=== PATIENT | male | born 1950 | race Caucasian/White ===

== ENCOUNTER 2020-10-10 16:25 | Outpatient (CLI) | payer MEDICARE, OTHER, SELFPAY ==
--- NOTE | ~2020-10-10 | CT_ITS ---
EXAMINATION: CT diagnostic chest w con DATE: 10/10/2020 17:07 INDICATION: Chest pain and shortness of breath TECHNIQUE: Computed tomography (CT) of the chest was performed with 75 cc Omnipaque 350 intravenous c ontrast. The dose-length product was 233.33 mGy-cm. Automated exposure control and iterative reconstr uction technique were employed. COMPARISON: VQ scan and chest x-ray dated 05/19/2019 FINDINGS: No thoracic lymphadenopathy. There is gynecomastia. Heart size normal. No significant pleur al or pericardial effusion. No evidence for aortic aneurysm or dissection. No endobronchial lesions. No focal airspace consolidation. No pulmonary nodules or masses. There is dependent atelectasis. Ther e is a low-density lesion exophytic from the left kidney posteriorly, most likely benign cyst. Otherw ise, the upper abdomen is unremarkable. No acute osseous abnormality. Mild dextrocurvature of the tho racic spine. IMPRESSION: 1. No acute cardiopulmonary disease. Reviewed, dictated and finalized at location A. FITS ASSISTANT
[2020-10-10 16:58] LABS: Estimated Glomerular Filt Rate 55
== END 2020-10-10 16:26 | disposition home or self-care (01) ==
LOC: ANHIMG 16:27
PROVIDERS: PCP Nurse Practitioner Family; Visit Provider Internal Medicine Cardiovascular Disease
DX: R06.02 Shortness of breath (principal); R07.2 Precordial pain
CPT/HCPCS: 71260; Q9967

== ENCOUNTER 2020-11-08 09:01 | Outpatient (CLI) | payer MEDICARE, OTHER, SELFPAY ==
--- NOTE | ~2020-11-08 | CT_ITS ---
EXAMINATION: CT abdomen wo/w con EXAM DATE: 11/08/2020 09:38 INDICATION: Renal mass. TECHNIQUE: Spiral CT of the abdomen was performed without and then with intravenous injection of 100 mL Omnipaque 350. Axial, coronal and sagittal images were reviewed. The dose-length product (DLP) for this examination was 773.00 mGy-cm. The exposure was tailored according to patient size (auto mA exposure control), and iterative reconstruction (ASIR) was used as additional dose reduction techniq ue. Comparison is made to prior examination from 05/25/2019. FINDINGS: No nephrolithiasis on the precontrast study. Resolution of previously seen hydronephrosis. There are several left renal lesions again identified, largest partially exophytic along the posterom edial midpole at 3.5 cm, mild interval increase in size but no evidence of complexity. Appearance is consistent with a simple cyst. A couple of other hemorrhagic cysts measuring up to 1 cm in size. Ther e are no suspicious renal lesions. The liver, spleen, adrenal glands and pancreas are unremarkable. Gallbladder not identified, patient likely has had cholecystectomy. There is no retroperitoneal lymphadenopathy. There is mild scatt ered arteriosclerotic disease. The stomach and small bowel are unremarkable. There is moderate amount of colonic stool. No free i ntraperitoneal gas. The heart is normal in size. There are no pericardial or pleural effusions. T he lung bases are unremarkable. The bones are unremarkable. IMPRESSION: 1. Left renal cysts. Reviewed, dictated and finalized at location A. PUMPER IMPRESSION: 1. Left renal cysts.
[2020-11-08 09:26] LABS: Estimated Glomerular Filt Rate 60
== END 2020-11-08 09:02 | disposition home or self-care (01) ==
PROVIDERS: PCP Nurse Practitioner Family; Visit Provider Nurse Practitioner Family
DX: N28.89 Other specified disorders of kidney and ureter (principal); N28.1 Cyst of kidney, acquired
CPT/HCPCS: 74170; Q9967

== ENCOUNTER → 2020-12-30 01:12 | Outpatient (CLI) | payer MEDICARE, OTHER, SELFPAY ==
[2020-12-30 20:54] LABS: SARS-CoV-2 RNA PCR Negative
== END ==
PROVIDERS: PCP Nurse Practitioner Family; Visit Provider Internal Medicine Gastroenterology
DX: Z01.812 Encounter for preprocedural laboratory examination (principal); Z20.822 Contact with and (suspected) exposure to COVID-19
CPT/HCPCS: C9803; U0003; U0005

== ENCOUNTER 2021-01-02 01:22 | Day surgery (SDC) | payer MEDICARE, OTHER, SELFPAY ==
[2021-01-02 10:29] VITALS: BMI 25.1
[2021-01-02 10:40] VITALS: BP 109/58; PULSE 63; RESP 12; TEMP 36.2; O2SAT 100; BMI 25.1
--- NOTE | 2021-01-02 10:54 | PM.HPGS ---
History of Present Illness History of Present Illness Consent: Risks, benefits, and alternatives have been discussed and questions answered. Patient agrees to proceed with procedure. Chief complaint: positive cologuard Narrative: Bon Rose is a 70 year old male referred for colon cancer screening. He was found have a positive: Guard tests Review of Systems Review of Systems: All systems reviewed & are unremarkable except as noted in HPI and below PMFSH Past Medical History Medical History Anxiety Bilateral knee pain Degenerative joint disease of knee Depression Diarrhea Heart attack Seasonal allergies Stomach pain Urinary hesitancy Surgical History Surgical History History of appendectomy History of heart surgery Family History Family History Father Family history of gallbladder disease Family history of kidney disease Acute myocardial infarction Sibling Malignant neoplasm of prostate, Onset Age: 52 Family history of malignant neoplasm of breast in first degree relative Acute myocardial infarction Mother Family history of malignant neoplasm of breast in first degree relative, Onset Age: 78 Patient's mother is Other Heart disease Social History Social History Smoking status: Never smoker Alcohol intake: current Drinks per week: 14 Alcohol use details: two drinks a day Substance use: never Living arrangements: with family Gender identity (if verbalized by the patient): Male Spiritual care concerns: No Agree to blood products: Yes Meds Home Medications and Allergies Home Medications Medication Instructions Recorded Confirmed Type acetaminophen 325 mg capsule 325 mg PO Q6H PRN 07/17/20 01/02/21 History alprazolam 0.25 mg tablet 0.25 mg PO BID 07/17/20 01/02/21 History aspirin 81 mg tablet,delayed 81 mg PO DAILY 07/17/20 01/02/21 History release atorvastatin 40 mg tablet 40 mg PO DAILY 07/17/20 01/02/21 History buspirone 10 mg tablet 10 mg PO BID 07/17/20 01/02/21 History escitalopram oxalate 10 mg tablet 10 mg PO DAILY 07/17/20 01/02/21 History pantoprazole 40 mg tablet,delayed 40 mg PO QAM 07/17/20 01/02/21 History release tadalafil 5 mg tablet 5 mg PO DAILY 07/17/20 01/02/21 History ticagrelor 60 mg tablet 60 mg PO Q12H 07/17/20 01/02/21 History ascorbate calcium (vitamin C) 500 500 mg PO DAILY 07/18/20 01/02/21 History mg tablet zinc acetate 25 mg (zinc) capsule 25 mg PO DAILY 07/18/20 01/02/21 History zolpidem 10 mg tablet 10 mg PO HS 07/18/20 01/02/21 History cholestyramine (with sugar) 4 gram 4 g PO BID #60 ea 12/08/20 01/02/21 Rx powder for susp in a packet lisinopril 10 mg tablet 10 mg PO DAILY 12/08/20 01/02/21 History Allergies Allergy/AdvReac Type Severity Reaction Status Date / Time Sulfa (Sulfonamide Allergy Severe RASH Verified 01/02/21 10:26 Antibiotics) sulfanilamide Allergy Unknown Unknown Verified 01/02/21 10:26 Vital Signs Vital Signs - 24 hr 01/02/21 10:40 Temperature 36.2 C L Pulse Rate 63 Respiratory Rate 12 Blood Pressure 109/58 L Pulse Oximetry 100 Exam Resp: Auscultation: clear to auscultation bilaterally Cardio: Rate: regular rate Rhythm: regular rhythm GI: GI Palp: Yes Soft to palpation and No Tenderness to palpation present (GI) Assessment and Plan Assessment and plan (1) Positive colorectal cancer screening using Cologuard test: Code(s): R19.5 - Other fecal abnormalities Status: Acute Assessment and Plan: Colonoscopy with possible biopsy or polypectomy or cautery or injection of substances.
[2021-01-02] MEDS: LACTATED RINGERS 1,000 ML 150 ML IV CONT (10:55)
--- NOTE | 2021-01-02 11:02 | WPDANESEPPF ---
Anes - Initial Pre Proc Eval Procedure: Operation Date: 01/02/21 11:00 Proposed Procedures p Colonoscopy - Abilio Martino MD Date/Time: 01/02/21 11:02 Surgeon: Abilio Martino MD Pre Op Diagnosis: positive cologuard Patient Data Age: 70 Gender: M Height: 6 ft 3 in Weight: 91.2 kg Last Vital Signs Temp 97.1 F L 01/02/21 10:40 Pulse 63 01/02/21 10:40 Resp 12 01/02/21 10:40 BP 109/58 L 01/02/21 10:40 Pulse Ox 100 01/02/21 10:40 Allergies Allergy/AdvReac Type Severity Reaction Status Date / Time Sulfa (Sulfonamide Allergy Severe RASH Verified 01/02/21 10:26 Antibiotics) sulfanilamide Allergy Unknown Unknown Verified 01/02/21 10:26 Home Medications Medication Instructions Recorded Confirmed Type acetaminophen 325 mg capsule 325 mg PO Q6H PRN 07/17/20 01/02/21 History alprazolam 0.25 mg tablet 0.25 mg PO BID 07/17/20 01/02/21 History aspirin 81 mg tablet,delayed 81 mg PO DAILY 07/17/20 01/02/21 History release atorvastatin 40 mg tablet 40 mg PO DAILY 07/17/20 01/02/21 History buspirone 10 mg tablet 10 mg PO BID 07/17/20 01/02/21 History escitalopram oxalate 10 mg tablet 10 mg PO DAILY 07/17/20 01/02/21 History pantoprazole 40 mg tablet,delayed 40 mg PO QAM 07/17/20 01/02/21 History release tadalafil 5 mg tablet 5 mg PO DAILY 07/17/20 01/02/21 History ticagrelor 60 mg tablet 60 mg PO Q12H 07/17/20 01/02/21 History ascorbate calcium (vitamin C) 500 500 mg PO DAILY 07/18/20 01/02/21 History mg tablet zinc acetate 25 mg (zinc) capsule 25 mg PO DAILY 07/18/20 01/02/21 History zolpidem 10 mg tablet 10 mg PO HS 07/18/20 01/02/21 History cholestyramine (with sugar) 4 gram 4 g PO BID #60 ea 12/08/20 01/02/21 Rx powder for susp in a packet lisinopril 10 mg tablet 10 mg PO DAILY 12/08/20 01/02/21 History Patient hx anesthesia problems: none Family hx anesthesia problems: none PMFSH Past Medical History Medical History Anxiety Bilateral knee pain Degenerative joint disease of knee Depression Diarrhea Heart attack Seasonal allergies Stomach pain Urinary hesitancy Surgical History Surgical History History of appendectomy History of heart surgery Family History Family History Father Family history of gallbladder disease Family history of kidney disease Acute myocardial infarction Sibling Malignant neoplasm of prostate, Onset Age: 52 Family history of malignant neoplasm of breast in first degree relative Acute myocardial infarction Mother Family history of malignant neoplasm of breast in first degree relative, Onset Age: 78 Patient's mother is Other Heart disease Social History Social History Smoking status: Never smoker Alcohol intake: current Drinks per week: 14 Alcohol use details: two drinks a day Substance use: never Living arrangements: with family Gender identity (if verbalized by the patient): Male Spiritual care concerns: No Agree to blood products: Yes Anes - Eval Final PreProcedure Day of Procedure 01/02/21 11:02 Patient weight: normal Heart: regular rate and rhythm Lungs: clear to auscultation Airway: Mallampati scale class II Neurological: alert and oriented Last oral intake: >/= 8 hours ASA classification: III Emergent: no Anesthetic plan: proceed Anesthesia type and monitoring: general GIVS and standard monitoring Informed Consent: The patient's anesthetic plan and its attendant risks and benefits were discussed with the patient/family/POA. Questions were solicited and answers provided to the satisfaction of the patient/family/POA.
--- NOTE | 2021-01-02 11:37 | SUR.OPER ---
Addendum entered by Ashley Portillo RN 01/02/21 11:40: CLIP X2 Original Note: RESOLUTION CLIP TO TRANSVERSE COLON POLYP LOT [id number] EXP
[2021-01-02 11:45] VITALS: BP 96/59; PULSE 69; RESP 17; O2SAT 99
[2021-01-02 11:55] VITALS: BP 101/64; PULSE 63; RESP 17; O2SAT 99
[2021-01-02 12:05] VITALS: BP 111/60; PULSE 64; RESP 18; O2SAT 99
== END 2021-01-02 12:15 | disposition home or self-care (01) ==
PROVIDERS: PCP Nurse Practitioner Family; Visit Provider Internal Medicine Gastroenterology
PROC: 0DJD8ZZ Inspection of Lower Intestinal Tract, Via Natural or Artificial Opening Endoscopic (ICD-10-PCS; CPT 45378; principal; 2021-01-02 11:00)
DX: R19.5 Other fecal abnormalities (principal); D12.3 Benign neoplasm of transverse colon; I25.2 Old myocardial infarction; J30.2 Other seasonal allergic rhinitis; M17.10 Unilateral primary osteoarthritis, unspecified knee; R39.11 Hesitancy of micturition; F41.9 Anxiety disorder, unspecified; F32.9 Major depressive disorder, single episode, unspecified; Z90.49 Acquired absence of other specified parts of digestive tract
CPT/HCPCS: 45385; 88305; J2704; J7120

== ENCOUNTER 2023-09-12 16:27 | Emergency (ER) | payer MEDICARE, OTHER, SELFPAY ==
--- NOTE | 2023-09-12 17:09 | PC.NURSE ---
pt up to desk stating he is leaving and is going to try to go somewhere else
== END 2023-09-12 17:20 | disposition left against medical advice (07) ==
PROVIDERS: PCP Family Medicine
DX: Z53.21 Procedure and treatment not carried out due to patient leaving prior to being seen by health care provider (principal)
CPT/HCPCS: 99199

== ENCOUNTER 2024-06-11 09:28 | Outpatient (CLI) | payer MEDICARE, OTHER, SELFPAY ==
--- NOTE | ~2024-06-11 | XR_ITS ---
Clinical Indication: Shortness of breath PA and lateral views of the chest: Comparison: 05/19/2019 Findings: Possible 14 mm subtle right basilar pulmonary nodule. Left lung clear.. Cardiomediastinal silhouette is within normal limits. Bones and soft tissues are unremarkable. Impression: Possible 14 mm right basilar pulmonary nodule. Chest CT recommended for further evaluation. Reviewed, dictated and finalized at [facility]. Impression: Possible 14 mm right basilar pulmonary nodule. Chest CT recommended for further evaluation.
== END 2024-06-11 09:29 | disposition home or self-care (01) ==
PROVIDERS: PCP Family Medicine; Visit Provider Nurse Practitioner Family
DX: R06.02 Shortness of breath (principal)
CPT/HCPCS: 71046

== ENCOUNTER 2024-07-14 12:30 | Outpatient (RCR) | payer MEDICARE, OTHER, SELFPAY ==
--- NOTE | 2024-06-10 09:58 | OPREHPOC ---
Outpatient Therapy Plan of Care This is a Multidisciplinary Plan of Care that may contain components documented by all disciplines (PT, OT, and ST.) PT Problem 1 PT Problem #1 Knowledge Deficit PT Goal 1 Goal / Goal Update *indep with HEP * correct posture and body mechanics demonstrated with exercises Target Visit 8 PT Problem 2 PT Problem #2 Pain PT Goal 1 Goal / Goal Update 1* self assessment Oswestry rating of 22% limitation in activity level 2* pain rating of 5/10 at worst 3* pt not report R groin pain Target Visit 8 PT Problem 3 PT Problem #3 Impaired Flexibility PT Goal 1 Goal / Goal Update improve flexibility over trunk and hips, to decrease strain/lime puller lumbar-sacral spine hamstring length with supine SLR 1* R 50' 2* L 50' piriformis length with supine hip and knee flexion> 90' 3* R cross midline of body 4* L cross midline of body anterior hip/quad length with prone knee flexion 5* R 110' 6* L 110' Target Visit 8
--- NOTE | 2024-06-10 09:58 | PTOPEVAL1 ---
Assessment and note entered by Maggie Pineda PT Evaluation Information Assessment Status Evaluation ICD-10 Condition Codes (PT) Pain in low back M54.50 Onset Apr 2024 Subjective Information had PT at another facility, the more he exercised, the more pain he had----sitting, lying down and standing exercises; xrays of lumbar: degenerative changes in L 4-5 and L 5-S1 Activity: is able to do all home and self care activities; walking is decreased--- was walking 4 miles/ 55 minutes at [facility], and no longer doing it; GOAL: get back to regular activity and walking again; not have thigh pain; Reported Pain Level Pain Score Self Report Additional Pain Score Comments pain range in the past week 0-8/10; sore in low back and R upper thigh/groin area; increase pain: when stand up and take first few steps decrease pain: over the counter meds; had prednisone and it did not help; sleep is not disrupted due to back pain; not use heat/ice- instruct on PRN use; Assessment PT Clinical Summary Jarvis has the diagnosis of low back pain. Also has pain in R inner thigh/groin area. He is no longer doing his walking for fitness due to pain. Self assessment Oswestry rating of 32% limitation in activity level. His medical history includes cancer of breast and bone, is currently on oral meds to control. With the evaluation: he has good hip and trunk strength; good walking speed and distance with 2 minute walking test; stands with flat lumbar spine; decreased flexibility of lumbar spine, R and L: hamstring, quads, anterior hip musculature. Skilled PT services are indicated for modalities to decrease pain; therapeutic exercises to increase hip and trunk flexibility; education for home exercises, posture and pain management. Plan of Care Interventions Hot Pack/Cold Pack,Manual Therapy,Patient/ Education,Therapeutic Activities, Therapeutic Exercise,Other Other Interventions taping PT Services Indicated Yes Treatment Frequency and 1-2x/wk for 8 visits Duration These treatments will address the objective and functional deficits as defined above. The patient will be advanced safely and appropriately in order for the patient to progress towards his/her prior level of function. Additional exercises will be introduced and as well as a comprehensive home exercise program upon discharge, if needed, ?to ensure carryover of functional gains achieved in the clinic. This treatment plan has been reviewed and agreement upon by the patient.
--- NOTE | 2024-07-09 13:06 | PCPTNOTE ---
Patient no called/no showed his appointment today however cancelled his appointment on 07/07 due to having COVID. Patient reported he forgot to call but still wasn't feeling well enough to come in. Patient was reminded about his re-eval on 07/14 at 12:30 and patient confirmed.
--- NOTE | 2024-07-14 13:14 | PTOPDC ---
Assessment and note entered by Maggie Pineda, PT Discharge Report Assessment Status Discharge ICD-10 Condition Codes (PT) Pain in low back M54.50 Onset Apr 2024 Subjective Information have been ill with COVID and better now; have been doing the stretches at home; want to get back to going to the [facility] for exercises and walking; Reported Pain Level Pain Score 0,0: Self Report Additional Pain Score Comments sore in groin, not painful pain range in the low back 0-4/10; increase pain: with sleeping wrong decrease pain: change positions, exercises/ stretching;ibuprofen PRN is careful to watch his position and not sit too long at a time; Assessment PT Clinical Summary Jarvis has received 6 PT sessions. He called/ canceled 1 and did not show for 1 appointment. Compared to the initial evaluation: pain from 0-8/10 to 0-4/10; no longer has pain into R groin, only in low back; self assessment Oswestry from 32 to 4% limitation in activity level; increase flexibility of R and L hamstrings, piriformis and anterior hip-quad muscle groups; increase strength of trunk and hips; Education completed for HEP, posture, body mechanics and pain management with positional changes and monitor activity level. The goals were achieved. Discharge PT. He is to continue with his HEP and monitor back posture and body mechanics. Plan of Care PT Services Indicated No
== END 2024-07-14 15:48 | disposition home or self-care (01) ==
LOC: ANHPT 12:30
PROVIDERS: PCP Family Medicine; Visit Provider Orthopaedic Surgery
DX: M48.061 Spinal stenosis, lumbar region without neurogenic claudication (principal); M54.50 Low back pain, unspecified
CPT/HCPCS: 97110; 97161; 97530

== ENCOUNTER 2024-08-24 16:39 | Emergency (ER) | payer MEDICARE, OTHER, SELFPAY ==
[2024-08-24 17:21] VITALS: BP 138/73; PULSE 108; RESP 16; TEMP 36.4; O2SAT 96
--- NOTE | 2024-08-24 17:29 | ED.URI ---
HPI - URI/Sore Throat General Chief Complaint: Upper Respiratory Infection Stated Complaint: flu like symptoms/ Fever Time Seen by Provider: 08/24/24 17:30 Source: patient and RN notes reviewed Mode of arrival: ambulatory Limitations: no limitations History of Present Illness HPI Narrative: 74-year-old male with hx CAD and metastatic breast cancer presented for complaint of headache, cough, body aches, sinus pressure/congestion, fever/chills. Onset yesterday. Had an episode of nausea and vomiting today, which made him feel better. Also reports decreased appetite and abdominal discomfort around umbilicus. Took advil for symptoms. Contacted his oncologist who advised covid/flu testing. MD elicited complaint: cough Related Data Home Medications ?Medication ?Instructions ?Recorded ?Confirmed ?Last Taken ?Type aspirin 81 mg tablet,delayed 81 mg PO DAILY 07/17/20 07/06/24 Unknown History release atorvastatin 40 mg tablet 40 mg PO DAILY 07/17/20 07/06/24 Unknown History ticagrelor 60 mg tablet 60 mg PO Q12H 07/17/20 06/11/24 Unknown History ascorbate calcium (vitamin C) 500 500 mg PO DAILY 07/18/20 07/06/24 Unknown History mg tablet zinc acetate 25 mg (zinc) capsule 25 mg PO DAILY 07/18/20 07/06/24 Unknown History ezetimibe 10 mg tablet mg PO 05/05/24 07/06/24 Unknown History finasteride 5 mg tablet mg PO 05/05/24 07/06/24 Unknown History gabapentin 300 mg capsule mg PO 05/05/24 07/06/24 Unknown History losartan 25 mg tablet mg PO 05/05/24 07/06/24 Unknown History letrozole 2.5 mg tablet mg PO 06/11/24 07/06/24 Unknown History metoprolol tartrate 25 mg tablet 25 mg PO DAILY 06/11/24 07/06/24 Unknown History temazepam 30 mg capsule mg PO 06/11/24 07/06/24 Unknown History trazodone 150 mg tablet mg PO 06/11/24 07/06/24 Unknown History cholecalciferol (vitamin D3) 50 50 mcg PO DAILY 07/06/24 07/06/24 Unknown History mcg (2,000 unit) capsule Allergies Allergy/AdvReac Type Severity Reaction Status Date / Time Sulfa (Sulfonamide Allergy Mild RASH Verified 08/24/24 17:21 Antibiotics) sertraline AdvReac Intermediate Diarrhea Verified 08/24/24 17:21 Review of Systems Review of Systems: CONSTITUTIONAL: Endorses malaise, chills, sweats, fever EYES: Denies visual changes, redness, or discharge ENT: Reports rhinorrhea, congestion, denies otalgia, sore throat CARDIOVASCULAR: Denies chest pain, palpitations, edema RESPIRATORY: Reports cough, post nasal drainage. Denies dyspnea GASTROINTESTINAL: reports nausea, vomiting, abdominal pain MUSCULOSKELETAL: Endorses myalgia NEUROLOGIC: reports headache PMFSH Past Medical History Medical History Anxiety Bilateral knee pain Cancer Degenerative joint disease of knee Depression Diarrhea Heart attack Seasonal allergies Stomach pain Urinary hesitancy Surgical History Surgical History H/O heart artery stent H/O vasectomy History of appendectomy History of cholecystectomy History of heart surgery Family History Family History Father Family history of gallbladder disease Family history of kidney disease Acute myocardial infarction Sibling Malignant neoplasm of prostate, Onset Age: 52 Family history of malignant neoplasm of breast in first degree relative Acute myocardial infarction Mother Family history of malignant neoplasm of breast in first degree relative, Onset Age: 78 Patient's mother is Other Heart disease Social History Social History (Updated 07/06/24 @ 12:43 by Gardenia Peng CMA) Smoking status: Never smoker Second hand tobacco smoke exposure: Yes Alcohol intake: current Drinks per week: 14 Alcohol use details: two drinks a day Substance use: never Substance use type: does not use Do You Feel Safe in your Home?: Yes Lack of Transportation: No Lack of Food: Never True Current Housing: I Have Housing Concerned About Future Housing: No Difficulty Paying Gas/Electric Bills: No Difficulty Paying for Meds: No Currently Unemployed: No Education: Associate Degree Difficulty w/ Childcare or Family Care: No Living arrangements: with family Occupation/Education: retired Additional occupation/education comments: [employer] Gender identity (if verbalized by the patient): Male Spiritual care concerns: No Agree to blood products: Yes Exam Narrative: GENERAL: mildly Ill-appearing, nontoxic no acute distress. EYES: PERRLA, conjunctivae clear ENT: Mucous membranes moist. TMs pearly blankenship with dull light reflex bilaterally; no tragal tenderness. no drooling, no hoarseness, no trismus, uvula midline. No tripod positioning, muffled voice, soft palate or pharyngeal wall bulging NECK: Supple. No lymphadenopathy CHEST: Clear to auscultation, breath sounds equal. No wheezing, rhonchi, rales, or stridor. No respiratory distress, speaks in full sentences. HEART: Regular rate and rhythm. No murmur heard. SKIN: Warm, dry NEURO: Alert and oriented x3. PSYCH: Normal mood and affect Course Course Emergency Course: Patient is aware of diagnosis, understands and agrees to treatment plan. Anticipatory guidance given. Patient agrees to follow-up as directed and is aware of reasons to seek care at the emergency department. Portions of this record may have been created with voice recognition software Level of Care: Express Care Visit Vital Signs Vital signs: Vital Signs Temperature 97.5 F L 08/24/24 17:21 Pulse Rate 108 H 08/24/24 17:21 Respiratory Rate 16 08/24/24 17:21 Blood Pressure 138/73 08/24/24 17:21 Pulse Oximetry 96 08/24/24 17:21 Oxygen Delivery Room Air 08/24/24 17:21 Temperature 97.5 F L 08/24/24 17:21 Pulse Rate 108 H 08/24/24 17:21 Respiratory Rate 16 08/24/24 17:21 Blood Pressure 138/73 08/24/24 17:21 Pulse Oximetry 96 08/24/24 17:21 Oxygen Delivery Room Air 08/24/24 17:21 reviewed MDM - URI/Sore Throat MDM Narrative Medical decision making narrative: POS covid. Discussed physical exam findings. Advised supportive measures and signs/symptoms to go to the ER. Pt is appropriate for outpt treatment and f/u. Differential Diagnosis Differential diagnosis: Likely upper respiratory infection, sinusitis and viral infection Discharge Plan Discharge Clinical Impression: COVID-19 Patient Disposition: Home, Self-Care Condition: Stable Instructions: COVID-19 (Coronavirus Disease 2019) (ED) Additional Instructions: Your rapid COVID test was positive today. The following updated recommendations have been made by the CDC and local Health Departments, regarding COVID-19: - When people get sick with a respiratory virus, they stay home and away from others. - Return to normal activities when, for at least 24 hours, symptoms are improving overall, and if a fever was present, it has been gone without use of a fever-reducing medication. - Once people resume normal activities, they are encouraged to take additional prevention strategies for the next 5 days to curb disease spread, such as taking more steps for negative cleaner air, enhancing hygiene practices, wearing a well-fitting mask, keeping a distance from others, and/or getting tested for respiratory viruses. - Enhanced precautions are especially important to protect those most at risk for severe illness, including those over 65 and people with weakened immune systems. Rest, stay hydrated. Tylenol every 8 hours as needed Flonase/nasal spray, Zyrtec, cough syrup cold/flu medications for symptoms as needed Follow up with your primary care provider, call to schedule an appointment. Go to the ER for worsening symptoms or concerns. Patient Language: Colombian Prescriptions: No Action cholecalciferol (vitamin D3) 50 mcg (2,000 unit) capsule 50 mcg PO DAILY temazepam 30 mg capsule PO trazodone 150 mg tablet PO letrozole 2.5 mg tablet PO aspirin 81 mg tablet,delayed release (DR/EC) 81 mg PO DAILY atorvastatin 40 mg tablet 40 mg PO DAILY ticagrelor 60 mg tablet 60 mg PO Q12H ascorbate calcium (vitamin C) 500 mg tablet 500 mg PO DAILY zinc acetate 25 mg (zinc) capsule 25 mg PO DAILY Rx Instructions: swallow whole; do not chew/break/dissolve/open ezetimibe 10 mg tablet PO finasteride 5 mg tablet PO losartan 25 mg tablet PO gabapentin 300 mg capsule PO terbinafine HCl [Jock Itch (terbinafine)] 1 % cream 1 applic topical BID Qty: 30 1RF metoprolol tartrate 25 mg tablet 25 mg PO DAILY terbinafine HCl 250 mg tablet 250 mg PO DAILY Qty: 10 0RF triamcinolone acetonide 0.1 % cream 1 applic topical BID Qty: 30 0RF Follow-up/Referrals: Bang Hester MD [Primary Care Provider] - Time of Disposition: 17:38
[2024-08-24 17:48] LABS: EDCOVIDSCREEN Positive (Negative); EDINFLUASCREEN Negative (Negative); EDINFLUBSCREEN Negative (Negative)
== END 2024-08-24 17:40 | disposition home or self-care (01) ==
PROVIDERS: Emergency Provider Nurse Practitioner Family; PCP Family Medicine
DX: U07.1 COVID-19 (principal); Z85.3 Personal history of malignant neoplasm of breast
CPT/HCPCS: 87426; 87804; 99212; G0463

== ENCOUNTER 2025-01-06 13:00 | Outpatient (RCR) | payer MEDICARE, OTHER, SELFPAY ==
--- NOTE | 2024-12-09 17:24 | OPREHPOC ---
Outpatient Therapy Plan of Care This is a Multidisciplinary Plan of Care that may contain components documented by all disciplines (PT, OT, and ST.) PT Problem 1 PT Problem #1 Knowledge Deficit PT Goal 1 Goal / Goal Update [place] with HEP Target Visit 4 PT Goal 2 Goal / Goal Update Report no pain greater than 2/10 for 2 consecutive weeks Target Visit 8 PT Problem 2 PT Problem #2 Impaired Range of Motion PT Goal 1 Goal / Goal Update 1. Improve nicholas hip abduction ROM to 40 degrees to improve gross hip mobility. 2. Demonstrate minimal restriction of nicholas piriformis 3. Demonstrate -20 degrees or better of nicholas hamstring restriction Target Visit 8 PT Problem 3 PT Problem #3 Impaired Gait PT Goal 1 Goal / Goal Update Demonstrate improved terminal stance bilaterally with full foot clearance
--- NOTE | 2024-12-09 17:24 | PTOPEVAL1 ---
Assessment and note entered by Eric Mcgovern, PT Evaluation Information Assessment Status Evaluation Diagnosis Right groin pain ICD-10 Condition Codes (PT) Pain in low back M54.50 Onset November 2023 Subjective Information Reports that he first started noticing pain about a year ago. He has been exercising to work on it. Added leg lifts which feel like they are strengthening the hip. He has had X-rays and they believe that it is radiating from the back to the groin. His orthopedic doctor was the one that originally took his x-rays. Overall feels that hips are tight and limiting function. Reported Pain Level Pain Score 0: Self Report Assessment PT Clinical Summary Patient presents with significant loss in functional hip ROM reflected in objective measures , stride, and mobility. Patient strength is significant for tasks, but could use lumbar stabilization coupled with hip disassociation to ensure oil heaterman functional recovery. Plan of Care Interventions Gait Training,Manual Therapy,Neuro Re-education, Therapeutic Activities,Therapeutic Exercise PT Services Indicated Yes Treatment Frequency and 2x/week for 8 visits Duration These treatments will address the objective and functional deficits as defined above. The patient will be advanced safely and appropriately in order for the patient to progress towards his/her prior level of function. Additional exercises will be introduced and as well as a comprehensive home exercise program upon discharge, if needed, ?to ensure carryover of functional gains achieved in the clinic. This treatment plan has been reviewed and agreement upon by the patient.
--- NOTE | 2025-01-06 13:45 | OPREHPOC ---
Outpatient Therapy Plan of Care This is a Multidisciplinary Plan of Care that may contain components documented by all disciplines (PT, OT, and ST.) PT Problem 1 PT Problem #1 Knowledge Deficit PT Goal 1 Goal / Goal Update [place] with HEP Target Visit 4 Progress Met PT Goal 2 Goal / Goal Update Report no pain greater than 2/10 for 2 consecutive weeks Target Visit 8 Progress Met PT Problem 2 PT Problem #2 Impaired Range of Motion PT Goal 1 Goal / Goal Update 1. Improve nicholas hip abduction ROM to 40 degrees to improve gross hip mobility. 2. Demonstrate minimal restriction of nicholas piriformis 3. Demonstrate -20 degrees or better of nicholas hamstring restriction Continues to show restriction in all listed categories but will address as part of HEP. Target Visit 8 Progress Partially Met PT Problem 3 PT Problem #3 Impaired Gait PT Goal 1 Goal / Goal Update Demonstrate improved terminal stance bilaterally with full foot clearance Progress Met
--- NOTE | 2025-01-06 13:45 | PTOPDC ---
Assessment and note entered by Eric Mcgovern, PT Evaluation Information Assessment Status Discharge Diagnosis Right groin pain ICD-10 Condition Codes (PT) Pain in low back M54.50 Onset November 2023 Subjective Information Reports that overall things are better. He is back to his regular routine once a day. He has been walking 3 miles a day. Does not have the pain today, but has had some days where it is still present. Feels he is doing well overall and requests discharge at this time from skilled therapy. Assessment PT Clinical Summary Patient met all functional goals at this time but still has notable objective goal deficits. Hew elected to pursue these independently with developed HEP. Will continue to address these deficits independently. Appropriate for discharge at this time. Plan of Care PT Services Indicated Yes
== END 2025-01-06 17:19 | disposition home or self-care (01) ==
LOC: ANHPT 13:00
PROVIDERS: PCP Family Medicine; Visit Provider Family Medicine
DX: R10.30 Lower abdominal pain, unspecified (principal); M54.50 Low back pain, unspecified
CPT/HCPCS: 97110; 97116; 97140; 97161; 97530

== ENCOUNTER 2025-04-18 14:00 | Outpatient (RCR) | payer MEDICARE, OTHER, SELFPAY ==
--- NOTE | 2025-03-09 11:09 | OPREHPOC ---
Outpatient Therapy Plan of Care This is a Multidisciplinary Plan of Care that may contain components documented by all disciplines (PT, OT, and ST.) PT Problem 1 PT Problem #1 Knowledge Deficit PT Goal 1 Goal / Goal Update Patient to demonstrate independence with HEP for improved self-reliance of symptom management. Target Visit 4 PT Problem 2 PT Problem #2 Pain PT Goal 1 Goal / Goal Update Patient to decrease subjective reports of Vicente shoulder pain to <4/10 upon waking for improved sleeping tolerance. Target Visit 4 PT Problem 3 PT Problem #3 Impaired Strength PT Goal 1 Goal / Goal Update Patient to demonstrate Vicente shoulder strength >=4+/ 5 for improved functional stability required for ADLs. Target Visit 8 PT Problem 4 PT Problem #4 Impaired Range of Motion PT Goal 1 Goal / Goal Update 1. Pt to demonstrate an increase of Vicente shoulder flexion AROM of 0-150 deg to improve the ability to reach overhead. 2. Pt to demonstrate an increase of Vicente shoulder abduction AROM of 0-120 deg to improve the ability to reach overhead laterally. 3. Pt to demonstrate an increase of Vicente shoulder IR functional reach to T12 to improve ability to perform personal hygiene tasks. Target Visit 8
--- NOTE | 2025-03-09 11:09 | PTOPEVAL1 ---
Assessment and note entered by Natasha Knowles, PT Evaluation Information Assessment Status Evaluation Diagnosis VICENTE shoulder pain L>R ICD-10 Condition Codes (PT) Pain in right shoulder M25.511,Pain in left shoulder M25.512 Onset approx. Sep 2024 Subjective Information Primary Complaint: Vicente shoulder Pain L>R Pain description: dull ache but sharp with movement and sleep History of current condition: Pt reports symptoms started on back in September. He tried a steroid pack with no change in his pain or function. At his most recent follow up he was instructed to try PT and if no change then he will need an MRI. He was also told to use Voltarin and an NSAID from the pharmacy for pain relief. Pt is unsure of which medication is being called in. He denies a specific PENG, he is currently under care for metastatic breast CA that has spread to his back. He reports it is stabilized but he is not in remission yet, initial diagnosis was July. Sxs made worse with: sleeping on his sides, wakes him up Sxs improved with: nothing CLOF: reduced sleep, difficulty washing his back, reaching into backseat of car PLOF: no limitations, pt is R handed Reported Pain Level Pain Score 0: Self Report Additional Pain Score Comments places hand over entire shoulder joint, difficulty pinpointing pain location Assessment PT Clinical Summary Pt is a 74 year old male who presents to physical therapy with a primary complaint of Vicente shoulder pain since September 2024. Pt demonstrates Vicente shoulder weakness, pain worse at night and with internal rotation, decreased mobility, abnormal posture, and decreased tissue extensibility that limit their ability to perform ADLs. Pt will benefit from skilled physical therapy to address the above listed deficits and return to PLOF. HEP instructed and written handout provided, EX tolerated well with no adverse effects to note post-session. Pt was educated on importance of adherence to HEP. Pt was also educated on anatomy, prognosis, home modalities, and PT POC. Plan of Care Interventions Hot Pack/Cold Pack,Manual Therapy,Neuro Re- education,Therapeutic Activities,Therapeutic Exercise PT Services Indicated Yes Treatment Frequency and 2x/wk for 8 sessions Duration These treatments will address the objective and functional deficits as defined above. The patient will be advanced safely and appropriately in order for the patient to progress towards his/her prior level of function. Additional exercises will be introduced and as well as a comprehensive home exercise program upon discharge, if needed, ?to ensure carryover of functional gains achieved in the clinic. This treatment plan has been reviewed and agreement upon by the patient.
--- NOTE | 2025-04-18 14:59 | OPREHPOC ---
Outpatient Therapy Plan of Care This is a Multidisciplinary Plan of Care that may contain components documented by all disciplines (PT, OT, and ST.) PT Problem 1 PT Problem #1 Knowledge Deficit PT Goal 1 Goal / Goal Update Patient to demonstrate independence with HEP for improved self-reliance of symptom management. Target Visit 4 Progress Met PT Problem 2 PT Problem #2 Pain PT Goal 1 Goal / Goal Update Patient to decrease subjective reports of Vicente shoulder pain to <4/10 upon waking for improved sleeping tolerance. Target Visit 4 Progress Met PT Problem 3 PT Problem #3 Impaired Strength PT Goal 1 Goal / Goal Update Patient to demonstrate Vicente shoulder strength >=4+/ 5 for improved functional stability required for ADLs. Target Visit 8 Progress Met PT Problem 4 PT Problem #4 Impaired Range of Motion PT Goal 1 Goal / Goal Update 1. Pt to demonstrate an increase of Vicente shoulder flexion AROM of 0-150 deg to improve the ability to reach overhead. 2. Pt to demonstrate an increase of Vicente shoulder abduction AROM of 0-120 deg to improve the ability to reach overhead laterally. 3. Pt to demonstrate an increase of Vicente shoulder IR functional reach to T12 to improve ability to perform personal hygiene tasks. Target Visit 8 Progress Met
--- NOTE | 2025-04-18 14:59 | PTOPDC ---
Assessment and note entered by Eric Mcgovern, PT Evaluation Information Assessment Status Discharge Diagnosis YOLIS shoulder pain L>R ICD-10 Condition Codes (PT) Pain in right shoulder M25.511,Pain in left shoulder M25.512 Onset approx. Sep 2024 Subjective Information Patient reports that overall he feels he is doing much better. Derrick [employer] and reach are improved. Less pain with overhead activity and ADLs. Reported Pain Level Pain Score 0: Self Report Assessment PT Clinical Summary Patient has met all goals for therapy at this time and is suitable for discharge to [facility] at this time . HE has demonstrated compliance and understanding with senior care goals and maintenance. Plan of Care PT Services Indicated Yes
== END 2025-04-18 17:03 | disposition home or self-care (01) ==
LOC: ANHPT 14:00
PROVIDERS: PCP Family Medicine; Visit Provider Orthopaedic Surgery
DX: M75.81 Other shoulder lesions, right shoulder (principal); M75.82 Other shoulder lesions, left shoulder
CPT/HCPCS: 97110; 97140; 97161; 97530

== ENCOUNTER 2025-05-13 12:29 | Outpatient (CLI) | payer MEDICARE, OTHER, SELFPAY ==
--- NOTE | ~2025-05-13 | MR_ITS ---
EXAMINATION: MR knee LT wo con DATE: 05/13/2025 13:00 INDICATION: Left knee pain TECHNIQUE: Magnetic resonance imaging (MRI) of the left knee was performed without intravenous contrast. Sequences included coronal PD-weighted FSE, coronal PD-weighted FS FSE, sagittal T2-weighted FSE, sagittal PD-weighted FS FSE and axial PD weighted fat saturated FSE. COMPARISON: None. FINDINGS: Medial compartment: Complex tear of the body and posterior horn of the medial meniscus. Articular cartilage is normal. Lateral compartment: Lateral meniscus is normal. Articular cartilage is normal. Patellofemoral compartment: Articular cartilage is normal. Ligaments and tendons: Anterior and posterior cruciate ligaments are normal. There is mild thickening with minimal increased signal of the proximal medial collateral ligament without surrounding edema consistent with mild scarring related to chronic sprain. The fibular collateral ligament complex is normal. The extensor mechanism is normal. The visualized medial and lateral hamstring tendons as well as the iliotibial band are normal. Fluid: Physiologic amount of fluid in the joint space. No loose osteochondral bodies identified. Osseous/other: Normal marrow signal. No fracture or pathologic marrow replacing process. There is edema of the superficial suprapatellar fat pad which can be seen with fat pad impingement syndrome. IMPRESSION: 1. Complex tear of the body and posterior horn of the medial meniscus. 2. Mild scarring consistent with chronic sprain of the proximal medial collateral ligament. 2. Edema in the superficial suprapatellar fat pad which can be seen with fat pad impingement syndrome. Reviewed, dictated and finalized at location A. IMPRESSION: 1. Complex tear of the body and posterior horn of the medial meniscus. 2. Mild scarring consistent with chronic sprain of the proximal medial collater al ligament. 2. Edema in the superficial suprapatellar fat pad which can be seen with fat pa d impingement syndrome.
== END 2025-05-13 12:30 | disposition home or self-care (01) ==
LOC: MICIMG 12:30
PROVIDERS: PCP Orthopaedic Surgery; Visit Provider Orthopaedic Surgery
DX: S83.232A Complex tear of medial meniscus, current injury, left knee, initial encounter (principal); X58.XXXA Exposure to other specified factors, initial encounter
CPT/HCPCS: 73721

== ENCOUNTER 2025-05-26 12:42 | Outpatient (CLI) | payer MEDICARE, OTHER, SELFPAY ==
--- NOTE | 2025-05-26 12:30 | ECG_ITS ---
Test Date: 2025-05-26 12:59:53 Measurements Intervals Rogers Rate: 87 P: 39 VT: 219 QRS: -37 QRSD: 78 T: 40 QT: 346 QTc: 418 Interpretive Statements SINUS RHYTHM WITH FIRST DEGREE AV BLOCK MARKED LEFT AXIS DEVIATION [QRS AXIS < -30] MODERATE VOLTAGE CRITERIA FOR LVH, CONSIDER NORMAL VARIANT [MEETS CRITERIA IN ONE OF: R(aVL), S(V1), R(V5), R(V5/V6)+S(V1)] POSSIBLE ANTEROSEPTAL MYOCARDIAL INFARCTION [30 ms Q WAVE IN V1-V4], OF INDETERMINATE AGE ABNORMAL ECG No previous ECG available for comparison Electronically Signed On 05-26-2025 17:55:42 CDT by Oziel Saldana M.D.
--- OUTSIDE RECORDS SUMMARY | 2025-05-26 12:50 | XMS_ITS | Encounter Summary ---
Author Organization [facility] Address [address] [place] [address] Phone Care Team Providers Care Mathematician Name Role Phone Lucero Flores DOOR AND ARRIVAL ATTENDANT Unavailable [phone] Lucero Flores DOOR AND ARRIVAL ATTENDANT Primary Care Provider + Layla Kirby MD Unavailable [phone] Angela Whitfield MD PhD Unavaila ble Fabio Sanchez DO Unavailable [phone] Rosalia Ibrahim MD Primary Care Provider + Yobani Escobar NP Primary Care Provider [phone] Bang Hester MD Primary Care Provider [phone] Marcia Dugan MD Unavailable [phone] Encounter Details Date Type Department Care Team (Late st Contact Info) Description 09/02/2018 Telephone [facility] ([facility]) - [facility] Medicine Urology [address] [facility] 11th [place] [address] [place] [address] Erlin Reyes Social History Tobacco Use Types Packs/Day Years Used Date Smoking Tobacco: Never Smokeless Tobacco: Never Alcohol Use Standard Drinks/Week Comments Yes 7 (1 standard drink = 0.6 oz pur e alcohol) Sex and Gender Information Value Date Recorded Sex Assigned at Not on file 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 Gender Identity Male 08/26/2023 5:32 PM OPTOMETRY PROFESSOR Sexual Orientation Straight 08/26/2023 5: 32 PM OPTOMETRY PROFESSOR documented as of this encounter Plan of Treatment Not on file documented as of this encounter Visit Diagnoses Not on filedocumented in this encounter Additional Health Concerns Infection Onset Date Last Indicated Resolved Time COVID: Suspected 04/13/2024 04/13/2024 04/13/2024 5:01 PM CDT COVID: Suspected 05/27/2024 05/27/2024 05/27/2024 5:39 PM CDT documented as of this encounter Care Teams Mathematician Relationship Specialty Start Date End Date Lucero Flores NP PCP - General Nurse Practitioner 04/27/18 11/05/23 Rosalia Ibrahim MD [address] [place] [address] PCP - General Family Medicine 11/06/23 03/31/24 Yobani Escobar NP [address] [place] [address] PCP - General Family Medicine 04/01/24 05/26/24 Bang Hester MD [address] [place] [address] PCP - General Family Practice 05/27/24 Lucero Flores NP Nurse Practitioner 05/23/17 11/12/23 Layla Kirby MD Radiation Oncologist Radiation Oncology 09/05/23 Angela Whitfield MD PhD [facility] [id number] [place] [address] Surgeon Surgical Oncology 09/05/23 Fabio Sanchez DO [address] [place] [address] Medical Oncologist/Speech Language Pathologist Hematology and Oncology 09/05/23 Marcia Dugan MD [address] [place] [address] Medical Oncologist/Speech Language Pathologist Medical Oncology 05/19/25 documented as of this encounter
--- OUTSIDE RECORDS SUMMARY | 2025-05-26 12:50 | XMS_ITS | Encounter Summary ---
Author Organization [facility] Address [address] [place] [address] Care Team Providers Care Spanish Tutor Name Role Phone Layla Kirby MD Unavailable [phone] Angela Whitfield MD PhD Unavaila ble Fabio Sanchez DO Unavailable [phone] Bang Hester MD Primary Care Provider [phone] Marcia Dugan MD Unavailable [phone] Encounter Details Date Type Department Care Team (Late st Contact Info) Description 10/11/2024 Orders Only [facility] [place] [facility] [address] [place] [address] Scanning, Provider Social History Tobacco Use Types Packs/Day Years Used Date Smoking Tobacco: Never Passive Smoke Exposure: Never Smokeless Tobacco: Never Alcohol Use Standard Drinks/Week Comments Yes 7 (1 standard drink = 0.6 oz pur e alcohol) AUDIT-C Answer Date Recorded Q1: How often do you have a drink containing alc ohol? Never 08/11/2024 Average Number of Drinks Not on file 024 Frequency of Binge Drinking Not on file 12/2023 Personal Safety Answer Date Recorded Have you ever been in or are you currently in a harmful physical or emotional relationship or is someone making you feel afraid or unsafe? 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 Gender Identity Male 08/26/2023 5:32 PM INDUSTRIAL GAS SERVICER SUPERVISOR Sexual Orientation Straight 08/26/2023 5: 32 PM INDUSTRIAL GAS SERVICER SUPERVISOR documented as of this encounter Plan of Treatment Not on file documented as of this encounter Procedures Procedure Name Priority Date/Time Associated Diagnosis Comments CARDIOLOGY DOCUMENT SCAN 10/11/2024 documented in this encounter Results * Cardiology Document Scan (10/11/2024) Anatomical Region Laterality Modality Other us Provider Scanning CV CARDIAC SERVICES PROCEDURES Final Result documented in this encounter Visit Diagnoses Not on filedocumented in this encounter Care Teams Spanish Tutor Relationship Specialty Start Date End Date Bang Hester MD [address] [address] PCP - General Family Practice 05/27/24 Layla Kirby MD Radiation Oncologist Radiation Oncology 09/05/23 Angela Whitfield MD PhD [address] [facility] [id number] [place] [address] Surgeon Surgical Oncology 09/05/23 Fabio Sanchez DO [address] [place] [address] Medical Oncologist/Welder Explosion Hematology and Oncology 09/05/23 Marcia Dugan MD [address] [place] [address] Medical Oncologist/Welder Explosion Medical Oncology 05/19/25 documented as of this encounter
--- OUTSIDE RECORDS SUMMARY | 2025-05-26 12:50 | XMS_ITS ---
Author Organization [facility] [address] Address [address] [place] [address] Care Team Providers Care Physical Therapy Coordinator Name Role Phone Layla Kirby MD Unavailable [phone] Angela Whitfield MD PhD Unavaila ble Fabio Sanchez DO Unavailable [phone] Bang Hester MD Primary Care Provider [phone] Marcia Dugan MD Unavailable [phone] Active Problems Problem Noted Date Diagnosed Date CKD (chronic kidney disease) stage 3, GFR 30-59 ml/min 11/09/2024 Obstructive sleep apnea 10/26/2024 Snoring 09/28/2024 Pulmonary nodules 09/23/2024 Hypersomnia 09/23/2024 Persons encountering health services in other specified circumstances 09/25/2023 Anxiety 09/23/2023 Fatigue 09/23/2023 Gastroesophageal reflux disease 09/23/2023 Insomnia 09/23/2023 Increased frequency of urination 09/23/2023 Neck pain 09/23/2023 Coronary arteriosclerosis 09/23/2023 Sleep disorder 09/23/2023 Benign prostatic hyperplasia 09/23/2023 Malignant neoplasm metastatic to bone 09/19/2023 Malignant neoplasm metastatic to bone 09/18/2023 Abnormal biopsy result 09/17/2023 Thoracic back pain 09/17/2023 Malignant neoplasm of central portion of left ma le breast 09/05/2023 Cancer Staging:Clinical stage from 09/05/2023:Stage IV(cT4, cN3b, cM1, G2, ER+, KS-, HER2-) - Signed by Layla Kirby MD on 09/05/2023 Infiltrating ductal carcinoma of breast 08/03/20 23 Axillary lymphadenopathy 07/16/2023 Diarrhea 06/26/2023 Oral herpes simplex infection 06/26/2023 Cellulitis of breast 06/12/2023 Methicillin resistant Staphylococcus aureus infe ction 06/12/2023 Cellulitis 05/27/2023 Acute mastitis 05/22/2023 Generalized anxiety disorder 02/26/2023 High prostate specific antigen (PSA) 02/11/2023 Chronic serous otitis media of left ear 10/14/19 23 History of cholecystectomy 08/12/2022 Tremor 08/12/2022 Mass of left breast 04/10/2022 Irritable bowel syndrome with diarrhea Pain in both upper extremities 05/10/2021 Melena 05/08/2021 Basal cell carcinoma of skin 04/18/2021 Overview (09/23/2023): nahum kuo. Cardiomegaly 11/05/2020 Precordial pain 10/10/2020 SOB (shortness of breath) 10/10/2020 Thrombocytopenia 10/10/2020 Renal insufficiency 10/18/2019 Bilateral hearing loss 10/11/2019 Bladder outlet obstruction 09/03/2018 Overview (09/03/2018): Added automatically from request for surgery [id number] Benign prostatic hyperplasia with lower urinary tract symptoms 07/08/2018 Overview (07/08/2018): Added automatically from request for surgery [id number] Non-STEMI (non-ST elevated myocardial infarction ) 05/19/2018 History of non-ST elevation myocardial infarctio n (NSTEMI) 10/28/2017 Depressive disorder 05/20/2017 Nocturia 05/20/2017 Hyperlipidemia 05/20/2017 Myocardial infarction 05/20/2017 Presence of stent in coronary artery 08/29/2016 Overview (12/13/2016): Stented coronary artery Old myocardial infarction 08/29/2016 Overview (12/13/2016): Old myocardial infarction Coronary arteriosclerosis in [place] artery 11/30 Overview (12/11/2016): CRNRY ATHRSCL NATVE VSSL Pure hypercholesterolemia 11/30/2012 Overview (12/11/2016): PURE HYPERCHOLESTEROLEM Post percutaneous transluminal coronary angiopla sty 11/30/2012 Overview (12/13/2016): STATUS-POST PTCA Current Treatment and Therapy Plans Denosumab (XGEVA) Injection* Plan Start Date:10/09/2023 Plan Provider:Marcia Dugan MD Linked Problems 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, estrogen receptor positive (HCC)Malignant neoplasm metastatic to bone (HCC) Treatment Medications Current Day (Day 1 , Cycle 7 - Planned for 06/16/2025) Next Day (Day 1, Cycle 8 - Planned for 07/14/2025) goserelin (ZOLADEX) goserelin (ZOLADEX) injection 3.6 mg goserelin (ZOLADEX) injection 3.6 mg Ribociclib / Aromatase Inhibitor 28 Day Cycles - Breast* Plan Start Date: 10/08/2023 Plan Provider:Marcia Dugan MD Linked Problems Malignant neoplasm metastati c to bone (HCC)Malignant neoplasm of central portion of left male breast, unspecified estrogen receptor status (HCC)Persons encountering health services in other specified circumstances Treatment Medications Current Day (Day 1 , Cycle 22 - Planned for 05/26/2025) letrozole (FEMARA)ribociclib (KISQALI) ribocicli b (KISQALI) 400 mg/day tablet Past Treatment and Therapy Plans Oncology Chemotherapy Treatment Plan Name Start Date Discontinue Date Treatment Medications Discontinue Reason Plan Provider Cycles Leuprolide 28 Day Cycles - Breast 12/08/2024 leuprolide (LUPRON)leupro lide (monthly) (LUPRON) Denied by Insurance Marcia Dugan MD 16 of 20 cycles started Oncology Treatment (2) Plan Name Start Date Discontinue Date Treatment Medications Discontinue Reason Plan Provider Cycles - [facility] - Breast - OP-1250 - 003 - Dose Expansion - Treatment Group 1 - OP-1250 / Ribociclib 4 10/09/2023 INV-[facility] OP-1250 (/O P-1250-003)INV -[facility] ribociclib (/O P-1250-003) Toxicity/Compl ication Marcia Dugan MD Treatment not started Lifetime Dose Tracking * Chemical Lifetime Dose Automatic Entry Manual Entr y DLP 4,434 mGycm 4,434 mGycm 0 mGycm Resolved Problems Problem Noted Date Diagnosed Date Resolved Date Primary malignant neoplasm o f breast with metastasis to other site 09/05/2023 09/19/2023 Thrombocytopathia 10/18/2019 10/10/2020 Hypercholesterolemia 08/29/2016 018 Overview (12/13/2016): Hypercholesteremia
--- OUTSIDE RECORDS SUMMARY | 2025-05-26 12:51 | XMS_ITS | Clinical Summary ---
Author Organization [facility] [address] Address [address] [place] [address] Care Team Providers Care Endband Cutter Hand Name Role Phone Layla Kirby MD Unavailable [phone] Angela Whitfield MD PhD Unavaila ble Fabio Sanchez DO Unavailable [phone] Bang Hester MD Primary Care Provider [phone] Marcia Dugan MD Unavailable Allergies Active Allergy Reactions Criticality Noted Date Comments Atorvastatin Muscle pain Medium 02/02/2025 Cefdinir Rash Medium 03/08/2021 cefdinir Sertraline Diarrhea High 08/24/2024 Unable to sleep. Sulfa (Sulfonamide Antibiotics) Rash Medium Suvorexant Other (See comments) Medium 03/08/2021 Belsomra Medications zinc acetate 25 mg (zinc) capsule Take 25 mg by mouth every morning. Active tadalafil (CIALIS) 5 mg tablet Take 1 tablet (5 mg total) by mouth as needed Active aspirin 81 mg chewable tablet Take 1 tablet (81 mg total) by mouth daily. 1 tablet 019 Active ascorbic acid (VITAMIN C) 500 mg tablet,chewable Vitamin C 500 mg tablet 1 TAB DAILY Active omeprazole (PriLOSEC) 20 mg capsule Take 1 capsule (20 mg total) by mouth daily Active finasteride (PROSCAR) 5 mg tablet Take 1 tablet (5 mg total) by mouth daily Active gabapentin (NEURONTIN) 300 mg capsule Take 1 capsule (300 mg total) by mouth 2 (two) times a day Active triamcinolone (KENALOG) 0.1 % cream Apply topically Active hydrocortisone 2.5 % cream Apply topically 2 (two) times a day as needed for rash or irritation Active tamsulosin (FLOMAX) 0.4 mg extended release capsule Take 1 capsule (0.4 mg total) by mouth nightly Active letrozole (FEMARA) 2.5 mg tabletIndication s:Malignant neoplasm metastatic to bone (HCC),Malignant neoplasm of central portion of left male breast, unspecified estrogen receptor status (HCC),Persons encountering health services in other specified circumstances Take 1 tablet by mouth once daily 330 tablet Active losartan (COZAAR) 25 mg tablet Take 1 tablet (25 mg total) by mouth daily 30 tablet [address] (CAMPRAL) 333 mg EC tabletIndication s:alcoholism Take 2 tablets (666 mg total) by mouth 3 (three) times a day 180 tablet 2 Active evolocumab (Repatha SureClick) 140 mg/mL pen injector Inject 1 mL (140 mg total) under the skin every 14 (fourteen) days 2 mL 025 2025 Active Additional Information Patient not taking.Reported on 05/19/2025 temazepam (RESTORIL) 30 mg capsule TAKE 2 CAPSULES BY MOUTH NIGHTLY NEEDED FOR SLEEP 60 capsule Active traZODone (DESYREL) 150 mg tablet TAKE 2 TABLETS BY MOUTH NIGHTLY 60 tablet Active cephalexin (KEFLEX) 250 mg capsule TAKE 1 CAPSULE BY MOUTH THREE TIMES DAILY NEEDED FOR URINARY INFECTION FOR [address] (VOLTAREN) 75 mg EC tablet Take 1 tablet (75 mg total) by mouth 2 (two) times a day Active temazepam (RESTORIL) 30 mg capsuleIndicatio ns:Insomnia Take 2 capsules (60 mg total) by mouth nightly as needed for sleep 30 capsule 3 Active traZODone (DESYREL) 150 mg tablet Take 2 tablets (300 mg total) by mouth nightly 30 tablet 3 025 2024 Active ribociclib (KISQALI) 400 mg/day tabletIndication s:Malignant neoplasm metastatic to bone (HCC),Malignant neoplasm of central portion of left male breast, unspecified estrogen receptor status (HCC),Persons encountering health services in other specified circumstances Take 2 tablets (400 mg total) by mouth daily for 21 days Take for 21 days, then stop for 7 days. Take with or without food at approximately the same time each day, preferably in the morning. 42 tablet 025 2024 Active mirtazapine (REMERON) 15 mg tablet Take 1 tablet by mouth nightly 30 tablet 025 Active mirtazapine (REMERON) 15 mg tablet Take 1 tablet (15 mg total) by mouth nightly 30 tablet 3 025 2024 Discontinued ribociclib (KISQALI) 400 mg/day tabletIndication s:Malignant neoplasm metastatic to bone (HCC),Malignant neoplasm of central portion of left male breast, unspecified estrogen receptor status (HCC),Persons encountering health services in other specified circumstances Take 2 tablets (400 mg total) by mouth daily for 21 days Take for 21 days, then stop for 7 days. Take with or without food at approximately the same time each day, preferably in the morning. 42 tablet 025 2024 Active Problems Problem Noted Date Diagnosed Date [...] from 09/05/2023:Stage IV(cT4, cN3b, cM1, G2, ER+, UT-, HER2-) - Signed by Layla Kirby MD [...] breast 04/10/2022 Irritable bowel syndrome with diarrhea 2 Pain in both upper extremities 05/10/2021 Melena 05/08/2021 Basal cell carcinoma of skin 04/18/2021 Overview (09/23/2023): nahum kuo. Cardiomegaly 11/05/2020 Precordial pain 10/10/2020 SOB (shortness of breath) 10/10/2020 Thrombocytopenia 10/10/2020 Renal insufficiency 10/18/2019 Bilateral hearing loss 10/11/2019 Bladder outlet obstruction 09/03/2018 Overview (09/03/2018): Added automatically from request for surgery [id number] Benign prostatic hyperplasia with lower urinary tract symptoms 07/08/2018 Overview (07/08/2018): Added automatically from request for surgery [id number] Non-STEMI (non-ST elevated myocardial infarction ) 05/19/2018 History of non-ST elevation myocardial infarctio n (NSTEMI) 10/28/2017 Depressive disorder 05/20/2017 Nocturia 05/20/2017 Hyperlipidemia 05/20/2017 Myocardial infarction 05/20/2017 Presence of stent in coronary artery 08/29/2016 Overview (12/13/2016): Stented coronary artery Old myocardial infarction 08/29/2016 Overview (12/13/2016): Old myocardial infarction Coronary arteriosclerosis in [place] artery 11/30 Overview (12/11/2016): CRNRY ATHRSCL NATVE VSSL Pure hypercholesterolemia 11/30/2012 Overview (12/11/2016): PURE HYPERCHOLESTEROLEM Post percutaneous transluminal coronary angiopla sty 11/30/2012 Overview (12/13/2016): STATUS-POST PTCA Resolved Problems Problem Noted Date Diagnosed Date Resolved Date Primary malignant neoplasm o f breast with metastasis to other site 09/05/2023 09/19/2023 Thrombocytopathia 10/18/2019 10/10/2020 Hypercholesterolemia 08/29/2016 018 Overview (12/13/2016): Hypercholesteremia Encounters Date Type Department Care Team Description 05/25/2025 Telephone [facility] Medicine Oncology [address] [facility] [address] [place] [phone] Janet Edwards RN Procedure 05/20/2025 12:00 PM CDT Office Visit [facility] Medicine Psychiatry [address] [facility] [address] [place] [address] Lisandro Wilkins MD Major depressive disorder in full remission, unspecified whether recurrent (Primary Dx) 05/20/2025 Orders Only [facility] Medicine Oncology [address] [facility] [address] 8 [place] [address] Marcia Dugan MD 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, estrogen receptor positive (HCC) (Primary Dx); Malignant neoplasm metastatic to bone (HCC) 05/19/2025 2:30 PM CDT Infusion [facility] - Infusion [address] [facility] Floor 6 [place] [address] Malignant neoplasm metastatic to bone (HCC) (Primary Dx); 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, estrogen receptor positive (HCC) 05/19/2025 1:20 PM CDT Office Visit [facility] Medicine Oncology [address] [place] [address] [address] 8 [place] [address] Marcia Dugan MD Malignant neoplasm metastatic to bone (HCC) (Primary Dx); 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, estrogen receptor positive (HCC) 05/19/2025 12:45 PM CDT Lab [facility] - Lab Collection [facility] [facility] Floor 5 [place] [address] 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, estrogen receptor positive (HCC); Malignant neoplasm metastatic to bone (HCC); 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 Telephone [facility] Oncology [address] [place] [address] 8 [place] [address] Marcia Dugan MD 05/17/2025 12:23 PM CDT - 05/17/2025 11:59 PM CDT Hospital Encounter [facility] [address] [place] [address] Discharge Disposition: Discharge to home or self care 05/17/2025 12:22 PM CDT - 05/17/2025 11:59 PM CDT Hospital Encounter [facility] [address] [place] [address] 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, estrogen receptor positive (HCC) Discharge Disposition: Discharge to home or self care 05/17/2025 12:22 PM CDT - 05/17/2025 11:59 PM CDT Hospital Encounter [facility] [address] [place] [address] 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, estrogen receptor positive (HCC) Discharge Disposition: Discharge to home or self care 05/16/2025 Orders Only [facility] Medicine Oncology [address] [place] [address] 8 [place] [address] Michelle Jones NP Malignant neoplasm metastatic to bone (HCC) (Primary Dx); Malignant neoplasm of central portion of left male breast, unspecified estrogen receptor status (HCC); Persons encountering health services in other specified circumstances 05/16/2025 Orders Only [facility] Medicine Oncology [address] [facility] [address] [place] [address] Marcia Dugan MD 05/05/2025 Telephone [facility] Medicine Otolaryngology [address] [place] [address] Ava Hughes 05/03/2025 11:15 AM CDT Office Visit [facility] Sleep Medicine at [address] [place] [address] Darlene Tapia MD Obstructive sleep apnea (Primary Dx); Overweight; Hypersomnia, unspecified; Insomnia, unspecified type 04/29/2025 Results Follow-Up [facility] Oncology [address] [facility] [address] [place] [address] Marcia Dugan MD Basic metabolic panel, eGFR 04/28/2025 3:00 PM CDT Lab [facility] Medicine Oncology Lab [address] [facility] [address] 5 [place] [address] 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, estrogen receptor positive (HCC); 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) 04/28/2025 2:45 PM CDT Lab [facility] - Lab Collection [facility] Floor 5 [place] [address] 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, estrogen receptor positive (HCC); 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) 04/21/2025 2:15 PM CDT Infusion [facility] - Infusion [address] [facility] [address] 5 [place] [address] Malignant neoplasm metastatic to bone (HCC) (Primary Dx); 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, estrogen receptor positive (HCC) 04/21/2025 1:30 PM CDT Lab [facility] - Lab Collection [address] [facility] [address] 5 [place] [address] 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, estrogen receptor positive (HCC); Malignant neoplasm metastatic to bone (HCC) 04/21/2025 Results Follow-Up [facility] Oncology [address] [place] [address] [address] [place] [phone] Marcia Dugan MD Basic metabolic panel, eGFR, PSA diagnostic, Additional followed-up results: 5 04/19/2025 Orders Only [facility] Oncology [address] [place] [address] [address] [place] [phone] Marcia Dugan MD Malignant neoplasm metastatic to bone (HCC) (Primary Dx); Malignant neoplasm of central portion of left male breast, unspecified estrogen receptor status (HCC); Persons encountering health services in other specified circumstances 04/04/2025 1:15 PM CDT Office Visit [facility] Sleep Medicine at [address] [place] [address] Darlene Tapia MD Obstructive sleep apnea (Primary Dx); Hypersomnia, unspecified; Insomnia, unspecified type; Overweight 03/24/2025 2:15 PM CDT Infusion [facility] - Infusion [address] [facility] [address] 5 [place] [address] Malignant neoplasm metastatic to bone (HCC) (Primary Dx); 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, estrogen receptor positive (HCC) 03/21/2025 Orders Only [facility] Oncology [address] [place] [address] [address] 8 [place] [address] Marcia Dugan MD Malignant neoplasm metastatic to bone (HCC) (Primary Dx); Malignant neoplasm of central portion of left male breast, unspecified estrogen receptor status (HCC); Persons encountering health services in other specified circumstances 03/18/2025 Orders Only [facility] Oncology [address] [place] [address] Floor [address] [place] [address] Marcia Dugan MD 03/18/2025 Orders Only [facility] Medicine Oncology [address] [place] [address] 8 [place] [address] Marcia Dugan MD 02/24/2025 2:15 PM CDT Infusion [facility] - Infusion [address] [facility] [address] [place] [address] Malignant neoplasm metastatic to bone (HCC) (Primary Dx); 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, estrogen receptor positive (HCC) from Last 3 Months Immunizations Immunization Administration Dates Next Due Hep B Vaccine 02/28/2005,09/20/2004,08/16/2004 Influenza, Quadrivalent, Hig h Dose, Preservative Free, Intrr 05/23/2021,05/16/2020,05/07/2020 Influenza, Quadrivalent, Spl it, Intramuscular 05/28/2019,06/09/2017,07/09/2016 Influenza, Quadrivalent, Spl it, Preservative Free, Intramuscular 05/28/2019 Influenza, Trivalent, High D ose, Split, Preservative Free, Intramuscular 05/20/2018,07/18/2017 Influenza, Trivalent, IM (MDV) 5,06/02/2014,07/28/2013,09/08 Influenza, Trivalent, Preser vative Free, Intramuscular 06/04/2015 Pfizer SARS-CoV-2 Monovalent Vaccination (12+ Yrs) PURPLE 12/31/2021 Pneumococcal Conjugate PCV 13 05/20/2017 Pneumococcal Polysaccharide PPV23 05/20/2018 Td, adsorbed 05/20/2017,11/06/1999 Tdap 05/20/2017 ZOSTER LIVE 05/28/2019,09/08/2011 ZOSTER Recombinant 07/30/2019,05/28/2019 Surgical History Surgery Date Site/Laterality Comments CHOLECYSTECTOMY CORONARY ANGIOPLASTY WITH ST ENT PLACEMENT 09/08/2005 - 09/07/2006 MICHELE placed in mid-LAD SINUS SURGERY 09/08/2011 - 09/07/2012 CARDIAC CATHETERIZATION 05/07/2016 Thrombectomy Prox mid-LAD & MICHELE VASECTOMY 09/08/1989 - 09/07/1990 ORAL SURGERY 09/08/1988 - 09/07/1989 SINUS SURGERY 09/08/2009 - 09/07/2010 KIDNEY STONE SURGERY 09/08/2017 - 09/07/2018 PROSTATE BIOPSY 09/08/2017 - 09/07/2018 TRANSURETHRAL RESECTION OF PROSTATE 2018 - 09/07/2019 SKIN CANCER EXCISION 09/08/2019 - 09/07/2020 Nose COLONOSCOPY ESOPHAGOGASTRODUODENOSCOPY SUPERFICIAL BONE BIOPSY 09/30/2023 N/A Medical History Medical History Date Comments Gastroesophageal reflux disease GERD Erectile dysfunction Angina pectoris Prostate hyperplasia with urinary obstruction CAD (coronary artery disease) Heart attack (HCC) 04/2016 Anterio STEMI Localized swelling of lower extremity Dyslipidemia Stenosis of peripheral vascular stent 2011 Chest pain Anxiety Depression Bladder fistula Cancer (HCC) Heart disease CHF (congestive heart failure) (HCC) Family History Medical History Relation Name Comments Cancer Brother 1 Oscar Escobar Prostate cancer Brother 1 Oscar Escobar Cancer Brother 2 Ramez Escobar Prostate cancer Brother 2 Ramez Escobar Cancer Brother 3 Enmanuel Esocbar Prostate cancer Brother 3 Enmanuel Escobar Heart disease Father Glen Escobar Hypertension Father Glen Escobar Breast cancer Half-Sister Breast cancer Maternal Grandmother Breast cancer Mother Edel Escobar Cancer Mother Edel Escobar Breast cancer Sister Genna Escobar Cancer Sister Genna Escobar Alcohol abuse Son Ramez Escobar Relation Name Status Comments Brother 1 Oscar Escobar Brother 2 Ramez Escobar Alive Brother 3 Enmanuel Escobar Alive Father Glen Escobar (Age 91) Half-Sister Maternal Grandmother Mother Edel Escobar Sister Genna Escobar Son Ramez Escobar Social History Tobacco Use Types Packs/Day Years Used Date Smoking Tobacco: Never Passive Smoke Exposure: Never Smokeless Tobacco: Never Tobacco Cessation:Counseling Given: Not Answered Alcohol Use Standard Drinks/Week Comments Yes 7 [...] on file Legal Sex Male 2:25 AM [employer] BOY Gender Identity Male 08/26/2023 5:32 PM [employer] BOY Sexual Orientation Straight 08/26/2023 5: 32 PM [employer] BO[employer] Obstetrics History Last Filed Vital Signs Vital Sign Reading Time Taken Comments Blood Pressure 101/63 05/19/2025 1:00 PM CDT Pulse 86 05/19/2025 1:00 PM CDT Temperature 36.3 C (97.3 F) 05/19/2025 1:00 PM CDT Respiratory Rate 18 05/19/2025 1:00 PM CDT Oxygen Saturation 98% 05/19/2025 1:00 PM CDT Inhaled Oxygen Concentration - - Weight 106 kg (233 lb 9.6 oz) 05/19/2025 1:00 PM CDT Height 188 cm (6' 2) 05/03/2025 10:59 AM CDT Body Mass Index 29.99 05/03/2025 10:59 AM CDT Plan of Treatment Health Maintenance Due Date Last Done Comments Colon Cancer Screening-Colonoscopy 1950 Depression Screening 1950 Hepatitis C Screening 1950 Well Visit 65+ 2017 Fall Risk Assessment 09/30/2024 09/30/2023 Covid-19 Vaccine (5 - 2 6 season) 2025 12/31/2021, 06/01/2021, 11/12/2020, Additional history exists Influenza Vaccine (#1) 2025 , 05/23/2021, 05/16/2020, Additional history exists Prostate Cancer Screening-PSA 05/19/2027, 09/15/2023, 06/02/2018 DTaP/Tdap/Td Vaccine (3 - Td or Tdap) 05/20/2027 05/20/2017, 05/20/2017, 11/06/1999 Hepatitis B Screening Completed 02/28/2005 , 09/20/2004, 08/16/2004 Pneumococcal vaccine 65+ Completed 05/20/2018, 05/09 Zoster Vaccine Completed 07/30/2019, 05/10, 05/28/2019, Additional history exists Medical Devices Implanted Type Area Patrol Mother Device Identifier Shelf Expiration Date Model / Serial / Lot Stents-11/26/19 06 Implanted:Qty: 1 on 11/25/2005 Heart Stent- 6 Implanted:Qty: 1 on 05/07/2016 Heart [employer] [id number] Urolift Implant Urological - [id number] Implanted:Qty: 1 on 07/27/2018 by Clara Lam MD at [facility] N/A: Urethra [employer] [id number] 11/13/2018 [id number] / / [id number] [employer] [id number] Urolift Implant Urological - [id number] Implanted:Qty: 1 on 07/27/2018 by Clara Lam MD at [facility] N/A: Urethra [employer] 11/13/2018 [id number] / / [id number] [employer] [id number] Urolift Implant Urological - [id number] Implanted:Qty: 1 on 07/27/2018 by Clara Lam MD at [facility] N/A: Urethra [employer] 11/13/2018 [id number] / / [id number] [employer] [id number] Urolift Implant Urological - [id number] Implanted:Qty: 1 on 07/27/2018 by Clara Lam MD at [facility] N/A: Urethra [employer] 11/13/2018 [id number] / / [id number] Procedures Procedure Name Priority Date/Time Associated Diagnosis Comments EGFR Routine 05/19/2025 12:31 PM CDT 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, estrogen receptor positive (HCC) Malignant neoplasm metastatic to bone (HCC) DIFFERENTIAL AUTO Routine 05/19/2025 12: 31 PM CDT 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, estrogen receptor positive (HCC) Malignant neoplasm metastatic to bone (HCC) CBC WITH AUTO DIFFERENTIAL Routine 05/19/2025 12:31 PM CDT 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, estrogen receptor positive (HCC) Malignant neoplasm metastatic to bone (HCC) COMPREHENSIVE METABOLIC PANEL Routine 05/19/2025 12:31 PM CDT 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, estrogen receptor positive (HCC) Malignant neoplasm metastatic to bone (HCC) CANCER ANTIGEN 15-3 Routine 05/19/2025 1 2:31 PM CDT 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, estrogen receptor positive (HCC) Malignant neoplasm metastatic to bone (HCC) PSA DIAGNOSTIC Routine 05/19/2025 12:31 PM CDT 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, 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) NM BONE IMAGING WHOLE BODY Schedule Routine, Read Routine (OP Routine) 05/17/2025 3:26 PM CDT 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, estrogen receptor positive (HCC) CT CHEST ABDOMEN PELVIS W CONTRAST Schedule Routine, Read Routine (OP Routine) 05/17/2025 1:28 PM CDT 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, estrogen receptor positive (HCC) EGFR Routine 04/28/2025 2:50 PM CDT 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, 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) BASIC METABOLIC PANEL Routine 04/28/2025 2:50 PM CDT 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 73 m2 Comment: Interpretive Data Reference Interval Normal >/= 90 mL/min/1.73m2 Mildly decreased* 60 - 89 mL/min/1.73m2 Mildly to moderately decreased 45 - 59 mL/min/1.73m2 Moderately to severely decreased 30 - 44 mL/min/1.73m2 Severely decreased 15 - 29 mL/min/1.73m2 Kidney Failure < 15 mL/min/1.73m2 *Relative to young adult level Estimated glomerular filtration rate is determined by the 2020 CKD-EPI equation recommended by the National Kidney Foundation (A Unifying Approach to GFR Estimation: Recommendations of the NKF-ASK Task Force on Reassessing the Inclusion of Race in Diagnosing Kidney Disease, JASN 2020). The CKD-EPI equation should not be used for patients with unstable renal function and has not been validated in children and those over 70. Current interpretive data was last reviewed 2021. Blood 05/19/2025 12:3 1 PM CDT 05/19/2025 12:33 PM CDT Marcia Dugan MD LAB BLOOD ORDERABLES Final Result [facility] Department [place] [address] * Differential, auto (05/19/2025 12:31 PM CDT) Neutrophil abs 1.76 1.50 - 6.50 K/cumm Comment:Testing performed by : [facility], [address] [place], [place] [phone] Lymphocyte abs 1.44 0.80 - 3.30 K/cumm [facility] Comment:Testing performed by : [facility], [address] [place] [phone] Monocyte abs 0.35 0.20 - 0.80 K/cumm [facility] Comment:Testing performed by : [facility], [address] [place] [phone] Eosinophil abs 0.06 0.00 - 0.50 K/cumm [facility] Comment:Testing performed by : [facility], [address] [place] [phone] Basophil abs 0.02 0.00 - 0.10 K/cumm [facility] Comment:Testing performed by : [facility], [address] [place] [phone] Neutrophil pct 48.4 % CERNER BJ Comment: Interpretive Data Percent cell count reference ranges are not reported, since discordance with absolute values may lead to misinterpretation of CBC data. Current Interpretive Data was last revised on 2017. Testing performed by: [facility], [address] [place] [phone] Lymphocyte pct 39.6 % CERNER BJ Comment: Interpretive Data Percent cell count reference ranges are not reported, since discordance with absolute values may lead to misinterpretation of CBC data. Current Interpretive Data was last revised on 2017. Testing performed by: [facility], [address] [place] [phone] Monocyte pct 9.7 % CERNER BJ Comment: Interpretive Data Percent cell count reference ranges are not reported, since discordance with absolute values may lead to misinterpretation of CBC data. Current Interpretive Data was last revised on 2017. Testing performed by: [facility], [address] [place] [phone] Eosinophil pct 1.6 % CERNER BJ Comment: Interpretive Data Percent cell count reference ranges are not reported, since discordance with absolute values may lead to misinterpretation of CBC data. Current Interpretive Data was last revised on 2017. Testing performed by: [facility], [address] [place] [phone] Basophil pct 0.7 % CERNER BJ Comment: Interpretive Data Percent cell count reference ranges are not reported, since discordance with absolute values may lead to misinterpretation of CBC data. Current Interpretive Data was last revised on 2017. Testing performed by: [facility], [address] [place] [phone] Blood 05/19/2025 12:3 1 PM CDT 05/19/2025 12:32 PM CDT Marcia Dugan MD LAB BLOOD ORDERABLES Final Result [facility] [place] [address] * (ABNORMAL) CBC with auto differential (05/19/2025 12:31 PM CDT) WBC 3.64(L) 3.80 - 9.90 K/cumm Comment:Testing performed by : [facility], [address] [place] [address] Hgb 13.6 13.0 - 17.5 g/dL CERVITALY LOPES Comment:Testing performed by : [facility], [address] [place] [address] Hct 40.2 38.9 - 50.3 % CERVITALY LOPES Comment:Testing performed by : [facility], [address] [place] [address] Plt 151 150 - 400 K/cumm CERVITALY LOPES Comment:Testing performed by : [facility], [address] [place] [address] MPV 7.3 6.8 - 10.4 fL CERVITALY BJ Comment:Testing performed by : [facility], [address] [place] [address] RBC 4.19(L) 4.30 - 5.80 M/cumm CERVITALY BJ Comment:Testing performed by : [facility], [address] [place] [address] MCV 95.8 81.3 - 96.4 fL CERVITALY BJ Comment:Testing performed by : [facility], [address] [place] [address] MCH 32.5 27.1 - 33.3 pg CERVITALY BJ Comment:Testing performed by : [facility], [address] [place] [address] MCHC 34.0 32.3 - 35.7 g/dL CERVITALY BJ Comment:Testing performed by : [facility], [address] [place] [address] RDW CV 15.1(H) 11.1 - 14.9 % [facility] Comment:Testing performed by : [facility], [address] [place] [phone] NRBC abs 0.00 0.00 - 0.01 K/cumm [facility] Comment:Testing performed by : [facility], [address] [place] [phone] Blood 05/19/2025 12:3 1 PM CDT 05/19/2025 12:32 PM CDT Marcia Dugan MD LAB BLOOD ORDERABLES Final Result Performing Organization Address [facility] de Phone Number [facility] [place] [address] * (ABNORMAL) Cancer antigen 15-3 (05/19/2025 12:31 PM CDT) CA 15-3 ag 139.0(H) <=25.0 units/mL Comment: Interpretive Data The Umm CA 15-3 assay procedure was used. Results from different manufacturers or methods may not be comparable. Serial testing should be performed using the same method. Blood 05/19/2025 12:3 1 PM CDT 05/19/2025 12:59 PM CDT Marcia Dugan MD LAB BLOOD ORDERABLES Final Result Performing Organization Address [facility] de Phone Number [facility] [place] [address] * PSA diagnostic (05/19/2025 12:31 PM CDT) PSA-Total <0.02 <=6.20 ng/mL Comment: Interpretive Data AGE SEX REFERENCE INTERVAL 0 minutes-150 years Female None 0 minutes-49 years Male None 50-59 years Male 0-3.90 60-69 years Male 0-5.40 70-79 years Male 0-6.20 80-150 years Male 0-6.20 The Umm PSA Total assay procedure was used. Results from different manufacturers or methods may not be comparable. Serial testing should be performed using the same method. Current interpretive data last revised 22. Blood 05/19/2025 12:3 1 PM CDT 05/19/2025 12:33 PM CDT Marcia Dugan MD LAB BLOOD ORDERABLES Final Result [facility] [place] [address] * (ABNORMAL) Comprehensive metabolic panel (05/19/2025 12:31 PM CDT) Sodium 138 135 - 145 mmol/L Potassium, pl 4.4 3.3 - 4.9 mmol/L [facility] Chloride 102 97 - 110 mmol/L [facility] CO2 27 22 - 32 mmol/L [facility] Anion gap 9 2 - 15 mmol/L [facility] BUN 29(H) 6 - 25 mg/dL [facility] Creatinine 1.38(H) 0.80 - 1.30 mg/dL [facility] Glucose 73 70 - 199 mg/dL [facility] Comment: Interpretive Data Fasting glucose >/= 126 mg/dl is diagnostic for diabetes. Fasting is defined as no caloric intake for at least 8 hours. Fasting glucose between 100 mg/dl to 125 mg/dl is diagnostic of prediabetes. In a patient with classic symptoms of hyperglycemia or hyperglycemic crisis, a random glucose >/= 200 mg/dl is diagnostic for diabetes. In the absence of unequivocal hyperglycemia, results should be confirmed by repeat testing. The classification and Diagnosis of Diabetes Diabetes Care 202; 46: S19-S40. Current interpretive data was last revised 2022. Calcium 9.1 8.5 - 10.3 mg/dL [facility] Bilirubin, total 0.4 0.1 - 1.2 mg/dL [facility] Protein, pl 5.8(L) 6.5 - 8.5 g/dL [facility] Albumin 3.7 3.5 - 5.0 g/dL [facility] Alk phos 87 40 - 130 Units/L [facility] ALT 11 7 - 55 Units/L [facility] AST 15 10 - 50 Units/L [facility] Blood 05/19/2025 12:3 1 PM CDT 05/19/2025 12:33 PM CDT Marcia Dugan MD LAB BLOOD ORDERABLES Final Result [facility] [place] [address] * NM bone scan whole body (05/17/2025 3:26 PM CDT) Anatomical Region Laterality Modality N/A Nuclear Medicine 05/17/2025 4:35 PM CDT Impressions 05/17/2025 5:18 PM CDT 1. Stable osseous metastatic disease. 2. Other miscellaneous findings as above. Dictated by: Kodi Dye M.D. The radiology attending physician has personally reviewed this study, and had reviewed and/or edited this written report and agrees with it. Electronically signed by: DO Nanette Cruz 05/17/2025 5:18 PM CDT EXAMINATION: BONE SCINTIGRAPHY (WHOLE-BODY) DATE OF STUDY: 05/17/2025 RADIOPHARMACEUTICAL: 21.7 mCi Tc-99m MDP i.v. HISTORY: 75-year-old male with invasive ductal carcinoma of the left breast diagnosed in July 2023 with multiple osseous and pulmonary nodules. Currently on letrozole, ribociclib and denosumab. FINDINGS: Delayed whole-body scintigrams were obtained. Prior nuclear medicine studies used for comparison: Multiple prior bone scintigraphic studies, recently 01/25/2025. Other radiographic comparisons: Same day CT chest, abdomen and pelvis. There is redemonstration of multiple foci of tracer uptake in the ribs, left iliac crest, multiple lumbar vertebrae and the sacrum. There is redemonstration of degenerative uptake in the knees. Unchanged left mandibular focus of increased uptake, likely periodontal disease. Procedure Note Tank Farrar DO - 05/17/2025 EXAMINATION: BONE SCINTIGRAPHY (WHOLE-BODY) DATE OF STUDY: 05/17/2025 RADIOPHARMACEUTICAL: 21.7 mCi Tc-99m MDP i.v. HISTORY: 75-year-old male with invasive ductal carcinoma of the left breast diagnosed in July 2023 with multiple osseous and pulmonary nodules. Currently on letrozole, ribociclib and denosumab. FINDINGS: Delayed whole-body scintigrams were obtained. Prior nuclear medicine studies used for comparison: Multiple prior bone scintigraphic studies, recently 01/25/2025. Other radiographic comparisons: Same day CT chest, abdomen and pelvis. There is redemonstration of multiple foci of tracer uptake in the ribs, left iliac crest, multiple lumbar vertebrae and the sacrum. There is redemonstration of degenerative uptake in the knees. Unchanged left mandibular focus of increased uptake, likely periodontal disease. IMPRESSION: 1. Stable osseous metastatic disease. 2. Other miscellaneous findings as above. Dictated by: Kodi Dye M.D. The radiology attending physician has personally reviewed this study, and had reviewed and/or edited this written report and agrees with it. Electronically signed by: Tank Farrar DO us Marcia Dugan MD IM NM PROCEDURES Final Re sult * CT Chest Abdomen Pelvis W Contrast (05/17/2025 1:28 PM CDT) Anatomical Region Laterality Modality Body N/A Computed Tomogra phy 05/17/2025 2:35 PM CDT Impressions 05/17/2025 2:51 PM CDT 1. No significant interval change in subcentimeter pulmonary nodules. 2. No significant interval change in osseous metastatic disease. Dictated by: Hussein Davila M.D. The radiology attending physician has personally reviewed this study, and had reviewed and/or edited this written report and agrees with it. Electronically signed by: Patsy Collazo M.D. Narrative 05/17/2025 2:51 PM CDT EXAMINATION: CT CHEST ABDOMEN PELVIS W CONTRAST HISTORY: Metastatic invasive ductal carcinoma of the left breast. TECHNIQUE: Computed tomography (CT) of the chest, abdomen, and pelvis was performed after the uneventful administration of 80 mL of Optiray-350 intravenous contrast according to the standard protocol. COMPARISON: CT 01/25/2025, 10/04/2024. FINDINGS: CHEST: Normal heart size without pericardial effusion. Left descending coronary artery stent. Unchanged fatty metaplasia in the left cardiac apex in keeping with prior infarction. Normal course and caliber of the thoracic aorta and main pulmonary artery. No supraclavicular, axillary, or mediastinal lymphadenopathy. The central airways are clear. No pneumothorax, pleural effusion, or consolidation. Numerous scattered subcentimeter pulmonary nodules in both lungs are not significantly changed. For reference, a 6 mm pulmonary nodule in the left lower lobe (series 3, image 120). ABDOMEN/PELVIS: The liver, adrenals, spleen, and pancreas are normal. No hydronephrosis or nephrolithiasis. Unchanged bilateral renal cysts and hypoattenuating renal lesions which are too small to catheterize. Normal bladder. Fiducial markers in the prostate. The stomach is decompressed. Normal course and caliber of the small and large bowel without evidence of obstruction. No pneumoperitoneum or ascites. Diffuse atherosclerotic ossifications of the abdominal aorta, which is normal in caliber. Retroaortic left renal vein. No suspicious abdominal or pelvic lymphadenopathy. Small fat-containing left inguinal hernia. Numerous sclerotic osseous lesions throughout the skeleton are similar compared to prior examination. Procedure Note Patsy Collazo MD - 05/17/2025 EXAMINATION: CT CHEST ABDOMEN PELVIS W CONTRAST HISTORY: Metastatic invasive ductal carcinoma of the left breast. TECHNIQUE: Computed tomography (CT) of the chest, abdomen, and pelvis was performed after the uneventful administration of 80 mL of Optiray-350 intravenous contrast according to the standard protocol. COMPARISON: CT 01/25/2025, 10/04/2024. FINDINGS: CHEST: Normal heart size without pericardial effusion. Left descending coronary artery stent. Unchanged fatty metaplasia in the left cardiac apex in keeping with prior infarction. Normal course and caliber of the thoracic aorta and main pulmonary artery. No supraclavicular, axillary, or mediastinal lymphadenopathy. The central airways are clear. No pneumothorax, pleural effusion, or consolidation. Numerous scattered subcentimeter pulmonary nodules in both lungs are not significantly changed. For reference, a 6 mm pulmonary nodule in the left lower lobe (series 3, image 120). ABDOMEN/PELVIS: The liver, adrenals, spleen, and pancreas are normal. No hydronephrosis or nephrolithiasis. Unchanged bilateral renal cysts and hypoattenuating renal lesions which are too small to catheterize. Normal bladder. Fiducial markers in the prostate. The stomach is decompressed. Normal course and caliber of the small and large bowel without evidence of obstruction. No pneumoperitoneum or ascites. Diffuse atherosclerotic ossifications of the abdominal aorta, which is normal in caliber. Retroaortic left renal vein. No suspicious abdominal or pelvic lymphadenopathy. Small fat-containing left inguinal hernia. Numerous sclerotic osseous lesions throughout the skeleton are similar compared to prior examination. IMPRESSION: 1. No significant interval change in subcentimeter pulmonary nodules. 2. No significant interval change in osseous metastatic disease. Dictated by: Hussein Davila M.D. The radiology attending physician has personally reviewed this study, and had reviewed and/or edited this written report and agrees with it. Electronically signed by: Patsy Collazo M.D. Marcia Dugan MD IMG CT PROCEDURES Final Re sult * (ABNORMAL) eGFR (04/28/2025 2:50 PM CDT) eGFR 47(L) >=60 mL/min/1. 73 m2 Comment: Interpretive Data Reference Interval Normal >/= 90 mL/min/1.73m2 Mildly decreased* 60 - 89 mL/min/1.73m2 Mildly to moderately decreased 45 - 59 mL/min/1.73m2 Moderately to severely decreased 30 - 44 mL/min/1.73m2 Severely decreased 15 - 29 mL/min/1.73m2 Kidney Failure < 15 mL/min/1.73m2 *Relative to young adult level Estimated glomerular filtration rate is determined by the 2020 CKD-EPI equation recommended by the National Kidney Foundation (A Unifying Approach to GFR Estimation: Recommendations of the NKF-ASK Task Force on Reassessing the Inclusion of Race in Diagnosing Kidney Disease, JASN 2020). The CKD-EPI equation should not be used for patients with unstable renal function and has not been validated in children and those over 70. Current interpretive data was last reviewed 2021. Blood 04/28/2025 2:50 PM CDT 04/28/2025 2:58 PM CDT Marcia Dugan MD LAB BLOOD ORDERABLES Final Result [facility] [place] [address] * (ABNORMAL) Basic metabolic panel (04/28/2025 2:50 PM CDT) Pathologist [facility] Sodium 141 135 - 145 mmol/L Potassium, pl 4.5 3.3 - 4.9 mmol/L [facility] Chloride 104 97 - 110 mmol/L [facility] CO2 28 22 - 32 mmol/L [facility] Anion gap 9 2 - 15 mmol/L [facility] BUN 23 6 - 25 mg/dL [facility] Creatinine 1.55(H) 0.80 - 1.30 mg/dL [facility] Glucose 97 70 - 199 mg/dL [facility] Comment: Interpretive Data Fasting glucose >/= 126 mg/dl is diagnostic for diabetes. Fasting is defined as no caloric intake for at least 8 hours. Fasting glucose between 100 mg/dl to 125 mg/dl is diagnostic of prediabetes. In a patient with classic symptoms of hyperglycemia or hyperglycemic crisis, a random glucose >/= 200 mg/dl is diagnostic for diabetes. In the absence of unequivocal hyperglycemia, results should be confirmed by repeat testing. The classification and Diagnosis of Diabetes Diabetes Care 202; 46: S19-S40. Current interpretive data was last revised 2022. Calcium 9.8 8.5 - 10.3 mg/dL [facility] Blood 04/28/2025 2:50 PM CDT 04/28/2025 2:58 PM CDT Marcia Dugan MD LAB BLOOD ORDERABLES Final Result Performing Organization Address [facility]/ZIP Co de Phone Number [facility] [place] [address] * (ABNORMAL) eGFR (04/21/2025 1:30 PM CDT) Pathologist [facility] eGFR 45(L) >=60 mL/min/1. 73 m2 Comment: Interpretive Data Reference Interval Normal >/= 90 mL/min/1.73m2 Mildly decreased* 60 - 89 mL/min/1.73m2 Mildly to moderately decreased 45 - 59 mL/min/1.73m2 Moderately to severely decreased 30 - 44 mL/min/1.73m2 Severely decreased 15 - 29 mL/min/1.73m2 Kidney Failure < 15 mL/min/1.73m2 *Relative to young adult level Estimated glomerular filtration rate is determined by the 2020 CKD-EPI equation recommended by the National Kidney Foundation (A Unifying Approach to GFR Estimation: Recommendations of the NKF-ASK Task Force on Reassessing the Inclusion of Race in Diagnosing Kidney Disease, JASN 2020). The CKD-EPI equation should not be used for patients with unstable renal function and has not been validated in children and those over 70. Current interpretive data was last reviewed 2021. Blood 04/21/2025 1:30 PM CDT 04/21/2025 1:30 PM CDT Marcia Dugan MD LAB BLOOD ORDERABLES Final Result [facility] [place] [address] * (ABNORMAL) Basic metabolic panel (04/21/2025 1:30 PM CDT) Pathologist [facility] Sodium 144 135 - 145 mmol/L Potassium, pl 4.4 3.3 - 4.9 mmol/L [facility] Chloride 107 97 - 110 mmol/L [facility] CO2 28 22 - 32 mmol/L [facility] Anion gap 9 2 - 15 mmol/L [facility] BUN 30(H) 6 - 25 mg/dL [facility] Creatinine 1.62(H) 0.80 - 1.30 mg/dL [facility] Glucose 71 70 - 199 mg/dL [facility] Comment: Interpretive Data Fasting glucose >/= 126 mg/dl is diagnostic for diabetes. Fasting is defined as no caloric intake for at least 8 hours. Fasting glucose between 100 mg/dl to 125 mg/dl is diagnostic of prediabetes. In a patient with classic symptoms of hyperglycemia or hyperglycemic crisis, a random glucose >/= 200 mg/dl is diagnostic for diabetes. In the absence of unequivocal hyperglycemia, results should be confirmed by repeat testing. The classification and Diagnosis of Diabetes Diabetes Care 202; 46: S19-S40. Current interpretive data was last revised 2022. Calcium 9.4 8.5 - 10.3 mg/dL [facility] Blood 04/21/2025 1:30 PM CDT 04/21/2025 1:30 PM CDT Marcia Dugan MD LAB BLOOD ORDERABLES Final Result [facility] [place] [address] from Last 3 [place] [address] [place] [address] [facility] CHOICE PLUS MEDICARE [facility] CHOICE PLUS [facility] HEALTH MEDICARE [facility] CHOICE PLUS Advance Directives For more information, please contact: [phone] * Full Code (Latest Code Status on File) Date Activated Date Inactivated Comments 10/05/2018 4:45 PM 10/07/2018 4:45 PM Care Teams Endband Cutter Hand Relationship Specialty Start Date End Date Bang Hester MD [address] [place] [phone] PCP - General Family Practice 05/27/24 Layla Kirby MD Radiation Oncologist Radiation Oncology 09/05/23 Angela Whitfield MD PhD [id number] [place] [address] Surgeon Surgical Oncology 09/05/23 Fabio Sanchez DO [facility] [address] Medical Oncologist/Investigator Operator Hematology and Oncology 09/05/23 Marcia Dugan MD [address] [place] [address] Medical Oncologist/Investigator Operator Medical Oncology 05/19/25
--- OUTSIDE RECORDS SUMMARY | 2025-05-26 12:51 | XMS_ITS | Encounter Summary ---
Author Organization [facility] Address [address] [place] [address] Phone Care Team Providers Care Toy Designer Name Role Phone Layla Kirby MD Unavailable [phone] Angela Whitfield MD PhD Unavaila ble Fabio Sanchez DO Unavailable [phone] Bang Hester MD Primary Care Provider [phone] Marcia Dugan MD Unavailable [phone] Reason for Visit * Reason Onset Date Comments Procedure 05/25/2025 Encounter Details Date Type Department Care Team (Late st Contact Info) Description 05/25/2025 Telephone 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 Relayed from oncology standpoint pt is clear for the procedure. Informed Jennifer, pt has been updated of the regimen with oncologic meds. For the questions of ok to undergo anasthesia, that will need to go through PCP, d/t oncology does not monitor co-morbities only oncologic diagnoses. Jennifer verbalized understanding and will fax clearance to PCP * Telephone Encounter - Janet Edwards RN - 05/25/2025 11:15 AM CDT Spoke with pt RE; knee arthroscopy Mon 05/30. Kisqali started 05/19. Per MD, labs not needed d/t labs , 05/19, were good.Relayed to pt need to stop Kisqali starting this evening (05/25) . Informed pt to update office , 05/31, to check status of recovery. Procedure is approx 1 hour with no recovery time frame. Pt to do as tolerated and no restrx post procedure. MD updated via email documented in this encounter Plan of Treatment Not on file documented as of this encounter Visit Diagnoses Not on filedocumented in this encounter Care Teams Toy Designer Relationship Specialty Start Date End Date Bang Hester MD [address] [place] [id number] PCP - General Family Practice 05/27/24 Layla Kirby MD Radiation Oncologist Radiation Oncology 09/05/23 Angela Whitfield MD PhD [address] [facility] [id number] [place] [address] Surgeon Surgical Oncology 09/05/23 Fabio Sanchez DO [address] [place] [id number] Medical Oncologist/Newspaper Peddler Hematology and Oncology 09/05/23 Marcia Dugan MD [address] [place] [address] Medical Oncologist/Newspaper Peddler Medical Oncology 05/19/25 documented as of this encounter
--- OUTSIDE RECORDS SUMMARY | 2025-05-26 12:51 | XMS_ITS | Clinical Summary ---
Author Organization [facility] Address [address] [place] [address] Care Team Providers Care Household Assistant Name Role Phone Jalyn Lockett MD Primary Care Provider Source Comments [facility],non-owned Affiliates and Associated Physician Practices is amultiple site organization consisting of ambulatory clinics and hospital sitesin [place], [place], [place] and [place]. This disclosure is being madepursuant to the Care Everywhere program and may not contain all information available regarding this patient. Last updated 18.[facility] Allergies Active Allergy Reactions Criticality Noted Date Comments Cefdinir Rash Medium 03/08/2021 Rosuvastatin Myalgias Medium 12/25/2020 Simvastatin Myalgias 03/08/2021 Suvorexant Psychiatric Medium 03/08/2021 Medications * Be aware that medications may not be up to date on this document. Alwaysverify current medications with the patient. ALPRAZolam (XANAX) 0.25 MG tablet Take 0.25 mg by mouth 2 times daily as needed 1 Active aspirin (ASPIRIN) 81 MG chew tablet Take 81 mg by mouth once daily Active atorvastatin (LIPITOR) 40 MG tablet Take 40 mg by mouth once daily 1 Active busPIRone (BUSPAR) 10 MG tablet Take 10 mg by mouth 2 times daily Active escitalopram (LEXAPRO) 10 MG tablet Take 10 mg by mouth once daily Active tadalafil (CIALIS) 5 MG tablet Take 5 mg by mouth once daily Active zolpidem (AMBIEN) 10 MG tablet Take 10 mg by mouth once daily Active ascorbic acid (VITAMIN C) 500 MG tablet Take 500 mg by mouth once daily Active Zinc 25 MG Take 25 mg by mouth once daily Active cholestyramine (QUESTRAN) 4 g packet Take 4 g by mouth once daily Active lisinopril (PRINIVIL; ZESTRIL) 10 MG tablet Take 10 mg by mouth once daily Active ticagrelor (BRILINTA) 60 MG tablet Take 60 mg by mouth 2 times daily Swallow whole. Do not crush, chew, or open capsule. 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 Gender Identity Not on file Sexual Orientation Not on file Last Filed Vital Signs Vital Sign Reading Time Taken Comments Blood Pressure 117/71 03/08/2021 10:27 AM CDT Pulse 59 03/08/2021 10:27 AM CDT Temperature 36.2 C (97.2 F) 03/08/2021 10:27 AM CDT Respiratory Rate - - Oxygen Saturation 95% 03/08/2021 10:27 AM CDT Inhaled Oxygen Concentration - - Weight 97.1 kg (214 lb) 03/08/2021 10:27 AM CDT Height 190.5 cm (6' 3) 03/08/2021 10:27 AM CDT Body Mass Index 26.75 03/08/2021 10:27 AM CDT Plan of Treatment Health Maintenance Due Date Last Done Comments COLON MONITORING 1952 COLONOSCOPY - COLON CA SCREENING 1952 CT COLONOGRAPHY - COLON CA SCREENING 1952 FIT - COLON CA SCREENING 1952 FLEX SIG - COLON CA SCREENING 1950 MEDICARE AWV 12 MONTHS 1952 HEPATITIS C SCREENING 05/09/1970 DTAP/TDAP/TD VACCINES (1 - Tdap) 1971 PNEUMOCOCCAL VACCINE 50+ (1 of 1 - PCV) 2002 ZOSTER VACCINE (1 of 2) 2002 COLOGUARD (AGES 45-75) - COLON CA SCREENING 06/27/2023 06/27/2020 Colorectal Cancer Screening 06/27/2023 DEPRESSION SCREENING 09/08/2024 COVID-19 VACCINE (2 - 2024- season) 2025 12/31/2021 INFLUENZA VACCINE (#1) 2025 9, 05/20/2018, 06/09/2017, Additional history exists Respiratory Syncytial Virus (RSV) Vaccine Pt: or over 60 yrs (1 - 1-dose 75+ series) 2027 HEPATITIS B VACCINE Aged Out No longe r eligible based on patient's age to complete this topic HIB VACCINE Aged Out No longer eligi ble based on patient's age to complete this topic HPV VACCINE Aged Out No longer eligi ble based on patient's age to complete this topic MENINGOCOCCAL (Group B) VACCINE SHARED DECISION-MAKING Aged Out No longer eligible based on patient's age to complete this topic MENINGOCOCCAL GROUPS A/C/Y/W VACCINE Aged Out No longer eligible based on patient's age to complete [place] [address] [place] [address] [facility] MEDICARE [facility] Care Teams Household Assistant Relationship Specialty Start Date End Date Jalyn Lockett MD [address] [place] [address] [address] [place] [address] PCP - General 03/21/15
--- OUTSIDE RECORDS SUMMARY | 2025-05-26 12:51 | XMS_ITS | Encounter Summary ---
Author Organization [facility] Address [address] [place] [address] Phone Care Team Providers Care Hairspring Adjuster Name Role Phone Layla Kirby MD Unavailable [phone] Angela Whitfield MD PhD Unavaila ble Fabio Sanchez DO Unavailable [phone] Bang Hester MD Primary Care Provider [phone] Marcia Dugan MD Unavailable [phone] Encounter Details Date Type Department Care Team (Late st Contact Info) Description 04/29/2025 Results Follow-Up [facility] Medicine Oncology [address] Floor [address] [place] [address] Marcia Dugan MD [address] [facility] [address] [place] [address] Basic metabolic panel, eGFR Social History Tobacco Use Types Packs/Day Years [...] on file 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 Gender Identity Male 08/26/2023 5:32 PM AGENCY SALES DEVELOPMENT ASSOCIATE Sexual Orientation Straight 08/26/2023 5: 32 PM AGENCY SALES DEVELOPMENT ASSOCIATE documented as of this encounter Plan of Treatment Not on file documented as of this encounter Visit Diagnoses Not on filedocumented in this encounter Care Teams Hairspring Adjuster Relationship Specialty Start Date End Date Bang Hester MD [facility] [address] PCP - General Family Practice 05/27/24 Layla Kirby MD Radiation Oncologist Radiation Oncology 09/05/23 Angela Whitfield MD PhD [address] [facility] [id number] [place] [address] Surgeon Surgical Oncology 09/05/23 Fabio Sanchez DO [address] [place] [address] Medical Oncologist/Music Coordinator Hematology and Oncology 09/05/23 Marcia Dugan MD [address] [place] [address] Medical Oncologist/Music Coordinator Medical Oncology 05/19/25 documented as of this encounter
--- OUTSIDE RECORDS SUMMARY | 2025-05-26 12:51 | XMS_ITS | Encounter Summary ---
Author Organization [facility] Address [address] [place] [address] Phone Care Team Providers Care Barn Boss Name Role Phone Jalyn Lockett MD Primary Care Provider [phone] Lucero Flores SUPERVISOR [employer]EARCH KENNEL Unavailable [phone] Lavern Harris SUPERVISOR [employer] KENNEL Primary Care Provider [phone] Lucero Flores SUPERVISOR [employer] KENNEL Primary Care Provider + Layla Kirby MD Unavailable [phone] Angela Whitfield MD PhD Unavaila ble Fabio Sanchez DO Unavailable [phone] Rosalia Ibrahim MD Primary Care Provider + Yobani Escobar SUPERVISOR [employer] KENNEL Primary Care Provider [phone] Bang Hester MD Primary Care Provider [phone] Marcia Dugan MD Unavailable [phone] Encounter Details Date Type Department Care Team (Latest Contact Info) Description 04/19/2016 Orders Only [facility] Scanning, Provider Social History Tobacco Use Types Packs/Day Years Used Date Smoking Tobacco: Never Alcohol Use Standard Drinks/Week Comments Yes 0 (1 standard drink = 0.6 oz pur e alcohol) Sex and Gender Information Value Date Recorded Sex Assigned at Not on file Legal Sex Male 2:25 AM LINING IRONER Gender Identity Male 08/26/2023 5:32 PM LINING IRONER Sexual Orientation Straight 08/26/2023 5: 32 PM LINING IRONER documented as of this encounter Plan of Treatment Not on file documented as of this encounter Procedures Procedure Name Priority Date/Time Associated Diagnosis Comments SCAN - PATHOLOGY 04/19/2016 documented in this encounter Results * SCAN - PATHOLOGY (04/19/2016) us Provider Scanning Final Result documented in this encounter Visit Diagnoses Not on filedocumented in this encounter Additional Health Concerns Infection Onset Date Last Indicated Resolved Time COVID: Suspected 04/13/2024 04/13/2024 04/13/2024 5:01 PM CDT COVID: Suspected 05/27/2024 05/27/2024 05/27/2024 5:39 PM CDT documented as of this encounter Care Teams Barn Boss Relationship Specialty Start Date End Date Jalyn Lockett MD [address] [address] PCP - General 11/30/12 05/22/17 Lavern Harris NP [address] [address] PCP - General Nurse Practitioner 05/23/17 04/26/18 Lucero Flores NP [address] [address] PCP - General Nurse Practitioner 04/27/18 11/05/23 Rosalia Ibrahim MD [address] [place] [address] PCP - General Family Medicine 11/06/23 03/31/24 Yobani Escobar NP [address] [place] [address] PCP - General Family Medicine 04/01/24 05/26/24 Bang Hester MD [address] [place] [address] PCP - General Family Practice 05/27/24 Lucero Flores NP [address] [address] Nurse Practitioner 05/23/17 11/12/23 Layla Kirby MD [address] [address] Radiation Oncologist Radiation Oncology 09/05/23 Angela Whitfield MD PhD [address] [facility] [id number] [place] [address] Surgeon Surgical Oncology 09/05/23 Fabio Sanchez DO [address] [place] [address] Medical Oncologist/Hide Handler Hematology and Oncology 09/05/23 Marcia Dugan MD [address] [place] [address] Medical Oncologist/Hide Handler Medical Oncology 05/19/25 documented as of this encounter
== END 2025-05-26 12:43 | disposition home or self-care (01) ==
LOC: ANHSURGERY 12:48
PROVIDERS: PCP Family Medicine; Visit Provider Orthopaedic Surgery
DX: I10 Essential (primary) hypertension (principal); Z01.818 Encounter for other preprocedural examination
CPT/HCPCS: 93005

== ENCOUNTER 2025-05-30 01:28 | Day surgery (SDC) | payer MEDICARE, OTHER, SELFPAY ==
--- NOTE | 2025-05-25 13:02 | PC.NURSE ---
Report to the Outpatient Waiting Room, entrance under the green pavilion located off [facility], at time _7 AM on date _05/30/25 . Planned Procedure Time: ___9 AM .? Time changes happen often and if your time is changed the preop area will call you the afternoon before. - You and your visitor will be asked to self-screen and do not enter if you have any COVID symptoms. Please call surgeon if you need to reschedule. - A mask is optional within the hospital at this time. Patients may have clear liquids (water, carbonated beverages, clear teas, apple juice) until 3 hours prior to surgery ( 6 AM) with a maximum of 20 ounces. - No food from midnight until time of surgery and no smoking, or chewing tobacco (or any form of nicotine). No chewing gum, candy or mints. Take only the following medications with a SIP of water on the morning of surgery: __CARVEDILOL DO NOT STOP ANY OF YOUR OTHER PRESCRIPTION MEDICATIONS PRIOR TO SURGERY EXCEPT THE FOLLOWING Hold all vitamins and supplements for 3 days per anesthesiologist.LAST DOSE 05/26/25 Medications to discontinue per physician ASPIRIN PER DR DEAL Date to take last dose Please no make-up, nail mosotho, hairspray, perfume, deodorant, or body powder the day of surgery.? No jewelry (including any body piercings) or valuables the day of surgery, leave them at home.? Please take a shower or bath the night before, or the morning of, surgery with an antibacterial soap.? Wear comfortable, loose fitting clothing.? Children are encouraged to wear pajamas. - Jewelry must be removed prior to entering the operating room.? Rings and piercings that are not removed may be cut off. - The hospital will not accept responsibility for valuables.? - Please leave all valuables, including medications, at home the day of surgery. If you are going home after surgery, a licensed fence post driver must drive you home.? - NO public transportation without another adult if you receive anesthesia. - We recommend that an adult stay with you for 24 hours following discharge. - We also recommend that you do not drive, make important decision, drink alcoholic beverages, or take any drugs that were not prescribed by your health care provider for at least 24 hours after your discharge time. For Pediatric surgeries, we recommend two adults accompany the child home. Follow any additional instructions given to you from your surgeon. Telephone instructions given to __PATIENT and asked if any additional questions and then verbalized understanding. Patient advised to call surgeon office or pre surgery nurse liaison [phone] if any additional questions.
[2025-05-25 13:23] VITALS: BMI 29.1
--- NOTE | 2025-05-26 07:16 | PM.IMHP ---
H&P: HPI History of Present Illness Date/Time: 05/26/25 07:16 Chief Complaint: Patient is knee pain left. He has catching locking and pain with any manipulation. Has a hard time walking because of this. Of note is the fact pain patient is going undergoing cancer treatment for prostate cancer. He has been cleared by his oncologist for surgery. Review of Systems Musculoskeletal: Musculoskeletal: Reports myalgias, Reports arthralgias, Reports joint swelling and Reports stiffness PMFSH Past Medical History Medical History (Reviewed 05/24/25 @ 13:19 by Gardenia Peng [facility]) Cancer Seasonal allergies Urinary hesitancy Degenerative joint disease of knee Anxiety Depression Diarrhea Stomach pain Heart attack Bilateral knee pain Surgical History Surgical History H/O heart artery stent H/O vasectomy History of cholecystectomy History of heart surgery History of appendectomy Family History Family History Father Family history of gallbladder disease Family history of kidney disease Acute myocardial infarction Sibling Malignant neoplasm of prostate, Onset Age: 52 Family history of malignant neoplasm of breast in first degree relative Acute myocardial infarction Mother Family history of malignant neoplasm of breast in first degree relative, Onset Age: 78 Patient's mother is Other Heart disease Social History Social History Smoking status: Never smoker Second hand tobacco smoke exposure: No Alcohol intake: current Drinks per week: 14 Alcohol use details: 2 DRINKS PER DAY JERSON GALVAN Substance use: never Substance use type: does not use Lack of Transportation: No Lack of Food: Never True Current Housing: I Have Housing Concerned About Future Housing: No Difficulty Paying Gas/Electric Bills: No Difficulty Paying for Meds: No Currently Unemployed: No Education: High School Diploma/GED Difficulty w/ Childcare or Family Care: No Living arrangements: with family Occupation/Education: retired Additional occupation/education comments: [employer] Gender identity (if verbalized by the patient): Male Spiritual care concerns: No Agree to blood products: Yes Meds Home Medications and Allergies Home Medications ?Medication ?Instructions ?Recorded ?Confirmed ?Type aspirin 81 mg tablet,delayed 81 mg PO DAILY 07/17/20 05/25/25 History release ascorbate calcium (vitamin C) 500 500 mg PO DAILY 07/18/20 05/25/25 History mg tablet zinc acetate 25 mg (zinc) capsule 25 mg PO DAILY 07/18/20 05/25/25 History finasteride 5 mg tablet 5 mg PO .bedtime 05/05/24 05/25/25 History losartan 25 mg tablet 25 mg PO DAILY 05/05/24 05/25/25 History letrozole 2.5 mg tablet 2.5 mg PO DAILY 06/11/24 05/25/25 History temazepam 30 mg capsule 60 mg PO DAILY 06/11/24 05/25/25 History trazodone 150 mg tablet 300 mg PO DAILY 06/11/24 05/25/25 History carvedilol 3.125 mg tablet (Coreg) 3.125 mg PO BID #90 tabs 10/11/24 05/25/25 Rx omeprazole 20 mg tablet,delayed 20 mg PO DAILY 10/11/24 05/25/25 History release ribociclib 400 mg/day (200 mg x 2) 400 mg PO DAILY 10/11/24 05/25/25 History tablets tamsulosin 0.4 mg capsule 0.4 mg PO Q24H 10/11/24 05/25/25 History calcium 600 mg (as carbonate)-vit 1 tablet PO DAILY 03/08/25 05/25/25 History D3 10 mcg (400 unit) chewable tablet (Calcium 600 with Vitamin D3) mirtazapine 15 mg tablet 15 mg PO DAILY 03/08/25 05/25/25 History tadalafil 5 mg tablet (Cialis) 10 mg PO DAILY 04/28/25 05/25/25 History gabapentin 300 mg capsule 300 mg PO QHS 05/24/25 05/25/25 History Allergies Allergy/AdvReac Type Severity Reaction Status Date / Time Sulfa (Sulfonamide Allergy Mild RASH Verified 05/25/25 13:01 Antibiotics) sertraline AdvReac Intermediate Diarrhea Verified 05/25/25 13:01 Exam Narrative: On exam he has tenderness palpation medially on the left knee has catching locking and pain. He has walks with a limp and has an antalgic gait. He has mechanical-type symptoms. Neurologically appears to be intact. Radiology Reports: Comments: Magnetic Resonance Report Signed Patient: Bon Rose EXAMINATION: MR knee LT wo con DATE: 05/13/2025 13:00 INDICATION: Left knee pain TECHNIQUE: Magnetic resonance imaging (MRI) of the left knee was performed without intravenous contrast. Sequences included coronal PD-weighted FSE, coronal PD-weighted FS FSE, sagittal T2-weighted FSE, sagittal PD-weighted FS FSE and axial PD weighted fat saturated FSE. COMPARISON: None. FINDINGS: Medial compartment: Complex tear of the body and posterior horn of the medial meniscus. Articular cartilage is normal. Lateral compartment: Lateral meniscus is normal. Articular cartilage is normal. Patellofemoral compartment: Articular cartilage is normal. Ligaments and tendons: Anterior and posterior cruciate ligaments are normal. There is mild thickening with minimal increased signal of the proximal medial collateral ligament without surrounding edema consistent with mild scarring related to chronic sprain. The fibular collateral ligament complex is normal. The extensor mechanism is normal. The visualized medial and lateral hamstring tendons as well as the iliotibial band are normal. Fluid: Physiologic amount of fluid in the joint space. No loose osteochondral bodies identified. Osseous/other: Normal marrow signal. No fracture or pathologic marrow replacing process. There is edema of the superficial suprapatellar fat pad which can be seen with fat pad impingement syndrome. IMPRESSION: 1. Complex tear of the body and posterior horn of the medial meniscus. 2. Mild scarring consistent with chronic sprain of the proximal medial collateral ligament. 2. Edema in the superficial suprapatellar fat pad which can be seen with fat pad impingement syndrome. Reviewed, dictated and finalized at location A. Abdomen CT 11/08/20 Hip/Pelvis X-Ray 12/02/23 Knee X-Ray 04/28/25 Knee MRI 05/24/25 Shoulder X-Ray 02/01/25 Orthopedics Result Report 04/28/25 Lumbar Spine X-Ray 05/13/24 Assessment and Plan Assessment and plan (1) Acute medial meniscus tear of left knee: Code(s): S83.242A - Other tear of medial meniscus, current injury, left knee, initial encounter Status: Acute Assessment and Plan: Patient has meniscal tear left previous mechanical catching locking of the knee. He has pain to palpation manipulation. Neurologically he is intact. He walks with an antalgic gait. He would like to consider arthroscopic intervention. I discussed the risks, benefits, limitations, and alternatives the patient detail. He understands and agrees. Will proceed per his request.
[2025-05-30] VITALS (8 sets, daily range): BP systolic 111–138; BP diastolic 64–72; PULSE 72–81; RESP 12–20; TEMP 36.2–36.3; O2SAT 95–100
[2025-05-30] MEDS: LACTATED RINGERS 1,000 ML 30 ML IV CONT (07:40)
--- NOTE | 2025-05-30 07:41 | WPDANESEPPF ---
Anes - Initial Pre Proc Eval Procedure: Operation Date: 05/30/25 09:00 Proposed Procedures p Left Knee Arthroscopy, Partial Meniscectomy, Proceed As Indicated - Jones Brown MD Date/Time: 05/30/25 07:41 Surgeon: Jones Brown MD Pre Op Diagnosis: Left medial meniscal tear Patient Data Age: 75 Gender: M Height: 1.88 m Weight: 102.99 kg Allergies Allergy/AdvReac Type Severity Reaction Status Date / Time Sulfa (Sulfonamide Allergy Mild RASH Verified 05/30/25 07:22 Antibiotics) sertraline AdvReac Intermediate Diarrhea Verified 05/30/25 07:22 Home Medications ?Medication ?Instructions ?Recorded ?Confirmed ?Type aspirin 81 mg tablet,delayed 81 mg PO DAILY 07/17/20 05/25/25 History release ascorbate calcium (vitamin C) 500 500 mg PO DAILY 07/18/20 05/25/25 History mg tablet zinc acetate 25 mg (zinc) capsule 25 mg PO DAILY 07/18/20 05/25/25 History finasteride 5 mg tablet 5 mg PO .bedtime 05/05/24 05/25/25 History losartan 25 mg tablet 25 mg PO DAILY 05/05/24 05/25/25 History letrozole 2.5 mg tablet 2.5 mg PO DAILY 06/11/24 05/25/25 History temazepam 30 mg capsule 60 mg PO DAILY 06/11/24 05/25/25 History trazodone 150 mg tablet 300 mg PO DAILY 06/11/24 05/25/25 History carvedilol 3.125 mg tablet (Coreg) 3.125 mg PO BID #90 tabs 10/11/24 05/25/25 Rx omeprazole 20 mg tablet,delayed 20 mg PO DAILY 10/11/24 05/25/25 History release ribociclib 400 mg/day (200 mg x 2) 400 mg PO DAILY 10/11/24 05/25/25 History tablets tamsulosin 0.4 mg capsule 0.4 mg PO Q24H 10/11/24 05/25/25 History calcium 600 mg (as carbonate)-vit 1 tablet PO DAILY 03/08/25 05/25/25 History D3 10 mcg (400 unit) chewable tablet (Calcium 600 with Vitamin D3) mirtazapine 15 mg tablet 15 mg PO DAILY 03/08/25 05/25/25 History tadalafil 5 mg tablet (Cialis) 10 mg PO DAILY 04/28/25 05/25/25 History gabapentin 300 mg capsule 300 mg PO QHS 05/24/25 05/25/25 History Patient hx anesthesia problems: none Family hx anesthesia problems: none Results Review: All pre-operative results and documents have been reviewed as part of the pre-operative evaluation. [facility] Past Medical History Medical History Cancer Seasonal allergies Urinary hesitancy Degenerative joint disease of knee Anxiety Depression Diarrhea Stomach pain Heart attack Bilateral knee pain Surgical History Surgical History H/O heart artery stent H/O vasectomy History of cholecystectomy History of heart surgery History of appendectomy Family History Family History Father Family history of gallbladder disease Family history of kidney disease Acute myocardial infarction Sibling Malignant neoplasm of prostate, Onset Age: 52 Family history of malignant neoplasm of breast in first degree relative Acute myocardial infarction Mother Family history of malignant neoplasm of breast in first degree relative, Onset Age: 78 Patient's mother is Other Heart disease Social History Social History Smoking status: Never smoker Second hand tobacco smoke exposure: No Alcohol intake: current Drinks per week: 14 Alcohol use details: two drinks a day Substance use: never Substance use type: does not use Lack of Transportation: No Lack of Food: Never True Current Housing: I Have Housing Concerned About Future Housing: No Difficulty Paying Gas/Electric Bills: No Difficulty Paying for Meds: No Currently Unemployed: No Education: High School Diploma/GED Difficulty w/ Childcare or Family Care: No Living arrangements: with family Occupation/Education: retired Additional occupation/education comments: [employer] Gender identity (if verbalized by the patient): Male Spiritual care concerns: No Agree to blood products: Yes Anes - Eval Final PreProcedure Day of Procedure 05/30/25 07:41 Patient weight: overweight Heart: regular rate and rhythm Lungs: decreased breath sounds Airway: Mallampati scale class II Neurological: alert and oriented Last oral intake: >/= 8 hours ASA classification: III Emergent: no Anesthetic plan: proceed Anesthesia type and monitoring: general LMA and standard monitoring Results Review: All pre-operative results and documents have been reviewed as part of the pre-operative evaluation. Informed Consent: The patient's anesthetic plan and its attendant risks and benefits were discussed with the patient/family/POA. Questions were solicited and answers provided to the satisfaction of the patient/family/POA.
[2025-05-30] MEDS: ACETAMINOPHEN 500 MG TABLET 1000 MG PO (07:46)
[2025-05-30] MEDS: KETOROLAC 15 MG/ML VIAL (*BKC) IV PUSH (07:47)
--- NOTE | 2025-05-30 08:06 | WPDHPUPDATE1 ---
History and Physical Update Update Date/Time: 05/30/25 08:06 History and Physical has been reviewed, including an updated exam of the patient. There are NO changes in the patient's condition. Risks, benefits, and alternatives have been discussed and questions answered. Patient agrees to proceed with procedure. Will proceed with arthroscopy partial meniscectomy, proceed as indicated. I discussed the fact that I can not repair the degenerative changes he has in his knee.
--- NOTE | 2025-05-30 08:14 | SUR.PREOP ---
0810 - Dr. Brown in pt's room. aware of scab to left knee, Dr. Brown stated that he would proceed and order antibiotic after surgery.
[2025-05-30] MEDS: ceFAZolin 2 GM in SODIUM CHLORIDE 0.9% IV 50 ML 100 ML IVPB (08:23)
[2025-05-30] MEDS: LIDO 1%/EPINEPHRINE 1:100,000 20 ML VIAL 30 ML INFILTRATE (08:39)
--- NOTE | 2025-05-30 08:54 | W.PM.PROC2 ---
Procedure Note - Detailed Date of Procedure 05/30/25 Pre-op Diagnosis Left medial meniscal tear Post-op Diagnosis Same Procedure Performed Arthroscopy partial medial meniscectomy Surgeon Jones Brown MD Anesthesia General Indications Pain, Locking and Catching Description of Procedure Patient brought to operating room # 7. An anesthetic was administered. The knee was sterilely prepped and draped in the usual manner. Standard portals were used. Superior medial portal was used for the outflow cannula, inferior lateral portal was used for the scope, inferior medial portal was used for the instruments. Arthroscopy was performed, the patellar femoral joint degenerative changes. The medial compartment showed a complex tear. The lateral compartment showed fraying. The ACL was intact. Using baskets and karol the meniscal tear was trimmed back to a stable base so the nothing further could be pulled into the joint. Any loose or delaminated fragments were gently trimmed to a stable base. At this point the instruments were withdrawn, sutures placed and patient left the operating room in satisfactory condition. Estimated Blood Loss 20 Drains No Packing No Pathology None sent Complications No immediate complications Condition Stable Disposition PACU [facility] Billing Surgery - Charge Forward: Surgery Billing ([id number] MMT Left)
== END 2025-05-30 10:35 | disposition home or self-care (01) ==
PROVIDERS: PCP Family Medicine; Visit Provider Orthopaedic Surgery
PROC: (CPT 29870; principal; 2025-05-30 09:00)
DX: S83.232A Complex tear of medial meniscus, current injury, left knee, initial encounter (principal); X58.XXXA Exposure to other specified factors, initial encounter; R39.11 Hesitancy of micturition; F41.9 Anxiety disorder, unspecified; F32.A Depression, unspecified; I25.2 Old myocardial infarction; Z79.82 Long term (current) use of aspirin; Z98.890 Other specified postprocedural states; Z90.49 Acquired absence of other specified parts of digestive tract; Z95.5 Presence of coronary angioplasty implant and graft; Z85.46 Personal history of malignant neoplasm of prostate; Z80.42 Family history of malignant neoplasm of prostate; Z80.3 Family history of malignant neoplasm of breast; Z82.49 Family history of ischemic heart disease and other diseases of the circulatory system
CPT/HCPCS: 29881; J0690; A9270; J1100; J1885; J2003; J2004; J2405; J2704; J3010; J7120

== ENCOUNTER 2025-06-30 13:31 | Outpatient (CLI) | payer MEDICARE, OTHER, SELFPAY ==
--- NOTE | ~2025-06-30 | US_ITS ---
EXAMINATION:US venous doppler LE LT INDICATION:Left knee pain TECHNIQUE: Multiple grayscale, color flow and Doppler images of the left lower extremity deep venous systems were obtained and reviewed. COMPARISON:No prior studies for comparison. FINDINGS: The common femoral, superficial femoral and popliteal veins demonstrate normal respiratory variation, augmentation and compressibility. Color flow is also seen within the posterior tibial, peroneal, greater saphenous and profunda veins. There is fluid anterior to the knee in the area of pain. IMPRESSION: 1: No lower extremity deep venous thrombosis. Reviewed, dictated and finalized at location O.
--- OUTSIDE RECORDS SUMMARY | 2025-06-30 14:26 | XMS_ITS ---
Author Organization [facility] [address] Address [address] [place] [address] Care Team Providers Care Pourer Name Role Phone Layla Kirby MD Unavailable [phone] Angela Whitfield MD PhD Unavaila ble Fabio Sanchez DO Unavailable [phone] Bang Hester MD Primary Care Provider [phone] Marcia Dugan MD Unavailable [phone] Active Problems Problem Noted Date Diagnosed Date MIGUEL (obstructive sleep apnea) 06/27/2025 CKD (chronic kidney disease) stage 3, GFR [...] cell carcinoma of skin 04/18/2021 Overview (09/23/2023): nose, [place]. Cardiomegaly 11/05/2020 Precordial pain 10/10/2020 SOB (shortness of breath) 10/10/2020 Thrombocytopenia 10/10/2020 Renal insufficiency 10/18/2019 Bilateral hearing loss 10/11/2019 Bladder outlet obstruction 09/03/2018 Overview (09/03/2018): Added automatically from request for surgery [id number] Benign prostatic hyperplasia with lower urinary tract symptoms 07/08/2018 Overview (07/08/2018): Added automatically from request for surgery [id number] Non-STEMI (non-ST elevated myocardial infarction ) 05/19/2018 History of non-ST elevation myocardial infarctio n (NSTEMI) 10/28/2017 Depressive disorder 05/20/2017 Nocturia 05/20/2017 Hyperlipidemia 05/20/2017 Myocardial infarction 05/20/2017 Presence of stent in coronary artery 08/29/2016 Overview (12/13/2016): Stented coronary artery Old myocardial infarction 08/29/2016 Overview (12/13/2016): Old myocardial infarction Coronary arteriosclerosis in [place] artery 11/30 Overview (12/11/2016): CRNRY ATHRSCL NATVE VSSL Pure hypercholesterolemia 11/30/2012 Overview (12/11/2016): PURE HYPERCHOLESTEROLEM Post percutaneous transluminal coronary angiopla sty 11/30/2012 Overview (12/13/2016): STATUS-POST PTCA Current Treatment and Therapy Plans Denosumab (XGEVA) Injection* Plan Start Date:10/09/2023 Plan Provider:Marcia Dugan MD Linked Problems 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Malignant neoplasm metastatic to bone (HCC) Treatment Medications No medications scheduled. 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, estrogen receptor positive (HCC)Malignant neoplasm metastatic to bone (HCC) Treatment Medications Current Day (Day 1 , Cycle 8 - Planned for 07/14/2025) Next Day (Day 1, Cycle 9 - Planned for 08/11/2025) goserelin (ZOLADEX) goserelin (ZOLADEX) injection 3.6 mg [...] Medications Current Day (Day 1 , Cycle 24 - Planned for 07/21/2025) Next Day (Day 1, Cycle 25 - Planned for 08/18/2025) letrozole (FEMARA)ribociclib (KISQALI) ribociclib (KISQALI) 400 mg/day tablet ribociclib (KISQALI) 400 mg/day tablet Past Treatment and Therapy Plans Oncology Chemotherapy Treatment Plan Name Start Date Discontinue Date Treatment Medications Discontinue Reason Plan Provider Cycles Leuprolide 28 Day Cycles - Breast 4 12/08/2024 leuprolide (LUPRON)leupro lide (monthly) (LUPRON) Denied by Insurance Marcia Dugan MD 16 of 20 cycles started Oncology Treatment (2) Plan Name Start Date Discontinue Date Treatment Medications Discontinue Reason Plan Provider Cycles [id number] - [facility] - Breast - OP-1250 - 003 - Dose Expansion - Treatment Group 1 - OP-1250 / Ribociclib 4 10/09/2023 INV-[facility] OP-1250 (/O P-1250-003)INV -[facility] ribociclib (/O P-[id number]) Toxicity/Compl ication Marcia Dugan [...]
--- OUTSIDE RECORDS SUMMARY | 2025-06-30 14:26 | XMS_ITS | Encounter Summary ---
Author Organization [facility] Address [address] [place] [address] Phone Care Team Providers Care Branch Assistant Name Role Phone Layla Kirby MD Unavailable [phone] Angela Whitfield MD PhD Unavaila ble Fabio Sanchez DO Unavailable [phone] Rosalia Ibrahim MD Primary Care Provider + Yobani Escobar NP Primary Care Provider [phone] Bang eHster MD Primary Care Provider [phone] Marcia Dugan MD Unavailable [phone] Encounter Details Date Type Department Care Team (Late st Contact Info) Description 12/30/2023 Orders Only [facility] Medicine Oncology [address] [place] [address] [address] [place] [id number] Marcia Dugan MD [address] [facility] [address] [place] [address] Malignant neoplasm metastatic to bone (HCC) (Primary Dx); Malignant neoplasm of central portion of left male breast, unspecified estrogen receptor status (HCC); Persons encountering health services in other specified circumstances Social History Tobacco Use Types Packs/Day Years [...] on file Legal Sex Male 2:25 AM CERTIFIED ORTHOTIST PRACTICE MANAGER Gender Identity Male 08/26/2023 5:32 PM CERTIFIED ORTHOTIST PRACTICE MANAGER Sexual Orientation Straight 08/26/2023 5: 32 PM CERTIFIED ORTHOTIST PRACTICE MANAGER documented as of this encounter Functional Status documented as of this encounter Ordered Prescriptions Prescription Sig Dispense Quantity Refills Last Filled Start Date End Date ribociclib (KISQALI) 400 mg/day tabletIndications: Malignant neoplasm metastatic to bone (HCC),Malignant neoplasm of [...] day, preferably in the morning. 42 tablet 01/22/20 documented in this encounter Plan of Treatment Scheduled Procedures Name Priority Associated Diagnoses Date/Ti me DRUG INDUCED SLEEP ENDOSCOPY. MIGUEL (obstructive sleep apnea) documented as of this encounter Visit Diagnoses Diagnosis Malignant neoplasm metastatic to bone (HCC)- Primary Malignant neoplasm of central portion of left male breast, unspecified estrogen receptor status (HCC) Persons encountering health services in other specified circumstances documented in this encounter Discontinued Medications Medication Sig Discontinue Reason Start Date End Da te ribociclib (KISQALI) 600 mg/day tabletIndications:Christy gnant neoplasm metastatic to bone (HCC),Malignant neoplasm of central portion of left male breast, unspecified estrogen receptor status (HCC),Persons encountering health services in other specified circumstances Take 3 tablets (600 mg total) by mouth daily for 21 days Take for 21 days, then stop for 7 days. Take with or without food at approximately the same time each day, preferably in the morning. Reorder 10/09/2023 12/31/2023 ribociclib (KISQALI) 600 mg/day tabletIndications:Christy gnant neoplasm metastatic to bone (HCC),Malignant neoplasm of central portion of left male breast, unspecified estrogen receptor status (HCC),Persons encountering health services in other specified circumstances Take 3 tablets (600 mg total) by mouth daily for 21 days Take for 21 days, then stop for 7 days. Take with or without food at approximately the same time each day, preferably in the morning. Reorder 11/06/2023 12/31/2023 ribociclib (KISQALI) 400 mg/day tabletIndications:Christy gnant neoplasm metastatic to bone (HCC),Malignant neoplasm of central portion of left male breast, unspecified estrogen receptor status (HCC),Persons encountering health services in other specified circumstances Take 2 tablets (400 mg total) by mouth daily for 21 days Take for 21 days, then stop for 7 days. Take with or without food at approximately the same time each day, preferably in the morning. Reorder 12/04/2023 12/31/2023 documented as of this encounter Additional Health Concerns Infection Onset Date Last Indicated Resolved Time COVID: Suspected 04/13/2024 04/13/2024 04/13/2024 5:01 PM CDT COVID: Suspected 05/27/2024 05/27/2024 05/27/2024 5:39 PM CDT documented as of this encounter Care Teams Branch Assistant Relationship Specialty Start Date End Date Rosalia Ibrahim MD [address] [place] [address] PCP - General Family Medicine 11/06/23 03/31/24 Yobani Escobar NP [address] [address] PCP - General Family Medicine 04/01/24 05/26/24 Bang Hester MD [address] [address] PCP - General Family Practice 05/27/24 Layla Kirby MD Radiation Oncologist Radiation Oncology 09/05/23 Angela Whitfield MD PhD [address] [facility] [id number] [place] [address] Surgeon Surgical Oncology 09/05/23 Fabio Sanchez DO [address] [place] [id number] Medical Oncologist/Domestic Housekeeper Hematology and Oncology 09/05/23 Marcia Dugan MD [address] [place] [address] Medical Oncologist/Domestic Housekeeper Medical Oncology 05/19/25 documented as of this encounter
--- OUTSIDE RECORDS SUMMARY | 2025-06-30 14:26 | XMS_ITS | Clinical Summary ---
Author Organization [facility] [address] Address [address] [place] [address] Care Team Providers Care Medical Equipment Technician Name Role Phone Layla Kirby MD Unavailable [phone] Angela Whitfield MD PhD Unavaila ble Fabio Sanchez DO Unavailable [phone] Bang Hester MD Primary Care Provider [phone] Marcia Dugan MD Unavailable [phone] Allergies Active Allergy Reactions Criticality Noted Date [...] mouth 2 (two) times a day Active ribociclib (KISQALI) 400 mg/day tabletIndication s:Malignant [...] the morning. 42 tablet 025 2024 Active traZODone (DESYREL) 150 mg tablet TAKE 2 TABLETS BY MOUTH NIGHTLY 30 tablet Active temazepam (RESTORIL) 30 mg capsule TAKE 2 CAPSULES BY MOUTH NIGHTLY NEEDED FOR SLEEP 30 capsule Active mirtazapine (REMERON) 15 mg tablet Take 1 tablet by mouth nightly 30 tablet Active ribociclib (KISQALI) 400 mg/day tabletIndication s:Malignant [...] the morning. 42 tablet 025 2024 Active temazepam (RESTORIL) 30 mg capsuleIndicatio ns:Insomnia Take 2 capsules (60 mg total) by mouth nightly as needed for sleep 30 capsule 3 025 2024 Discontinued traZODone (DESYREL) 150 mg tablet Take 2 [...] in the morning. 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, G2, ER+, WA-, HER2-) - Signed by Layla Kirby MD [...] (09/03/2018): Added automatically from request for surgery [id number] Benign prostatic hyperplasia with lower urinary tract symptoms 07/08/2018 Overview (07/08/2018): Added automatically from request for surgery [id number] Non-STEMI (non-ST elevated myocardial infarction ) 05/19/2018 History of non-ST elevation myocardial infarctio n (NSTEMI) 10/28/2017 Depressive disorder 05/20/2017 Nocturia 05/20/2017 Hyperlipidemia 05/20/2017 Myocardial infarction 05/20/2017 Presence of stent in coronary artery 08/29/2016 Overview (12/13/2016): Stented coronary artery Old myocardial infarction 08/29/2016 Overview (12/13/2016): Old myocardial infarction Coronary arteriosclerosis in nome artery 11/30 Overview (12/11/2016): CRNRY ATHRSCL NATVE [...] Encounters Date Type Department Care Team Description 06/29/2025 Orders Only [facility] Medicine Oncology [address] [place] [address] [address] [place] [address] Marcia Dugan MD Malignant neoplasm metastatic to bone (HCC) (Primary Dx); Malignant neoplasm of central portion of left male breast, unspecified estrogen receptor status (HCC); Persons encountering health services in other specified circumstances 06/27/2025 1:20 PM CDT Office Visit [facility] [address] [facility] [address] [place] [address] Heather Arevalo MD 06/20/2025 Telephone [facility] Medicine Oncology [address] [place] [address] [address] [place] [address] Janet Edwards RN Lab Results 06/20/2025 Orders Only [facility] Medicine Oncology [address] [place] [address] Floor 8 [place] [address] Marcia Dugan MD 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, estrogen receptor positive (HCC) (Primary Dx); Malignant neoplasm metastatic to bone (HCC) 06/17/2025 Telephone [facility] Oncology [address] [place] [address] Floor 8 [place] [id number] Marcia Dugan MD 06/16/2025 2:30 PM CDT Infusion [facility] - Infusion [address] [facility] Floor 5 [place] [address] Malignant neoplasm metastatic to bone (HCC) (Primary Dx); 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, estrogen receptor positive (HCC) 06/16/2025 1:30 PM CDT Lab [facility] [place] - Lab Collection [address] [facility] Floor 5 [place] [address] 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, estrogen receptor positive (HCC); Malignant neoplasm metastatic to bone (HCC) 06/10/2025 Orders Only [facility] Medicine Oncology [facility] Floor 8 [place] [address] Marcia Dugan MD 06/09/2025 Orders Only [facility] Medicine Oncology [address] [facility] Floor 8 [place] [address] Marcia Dugan MD Malignant neoplasm metastatic to bone (HCC) (Primary Dx); Malignant neoplasm of central portion of left male breast, unspecified estrogen receptor status (HCC); Persons encountering health services in other specified circumstances 06/08/2025 Orders Only [facility] Medicine Oncology [address] [facility] Floor 8 [place] [address] Marcia Dugan MD 06/07/2025 Telephone [facility] Medicine Oncology [address] [facility] [address] [place] [address] Janet Edwards, RN follow up 06/07/2025 Orders Only [facility] Oncology [address] [facility] [address] [place] [address] Marcia Dugan MD 05/27/2025 Telephone [facility] Cardiology [address] [facility] [address] [place] [address] Nicko Sheikh MD cardiac clearance 05/25/2025 Telephone [facility] Oncology [address] [facility] [address] [place] [address] Janet Edwards, lei seller 05/20/2025 12:00 PM CDT Office Visit [facility] Medicine Psychiatry [address] [facility] [address] [place] [address] Lisandro Wilkins MD Major depressive disorder in full remission, unspecified whether recurrent (Primary Dx) 05/20/2025 Orders Only [facility] Medicine Oncology [address] [facility] Floor 8 [place] [address] Marcia Dugan MD 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, estrogen receptor positive (HCC) (Primary Dx); Malignant neoplasm metastatic to bone (HCC) 05/19/2025 2:30 PM CDT Infusion [facility] - Infusion [address] [facility] Floor 6 [place] [address] Malignant neoplasm metastatic to bone (HCC) (Primary Dx); 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, estrogen receptor positive (HCC) 05/19/2025 1:20 PM CDT Office Visit [facility] Medicine Oncology [address] [place] [address] Floor 8 [place] [address] Marcia Dugan MD Malignant neoplasm metastatic to bone (HCC) (Primary Dx); 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, estrogen receptor positive (HCC) 05/19/2025 12:45 PM CDT Lab [facility] - Lab Collection [address] [facility] Floor 5 [place] [address] 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, estrogen receptor positive (HCC); Malignant neoplasm metastatic to bone (HCC); 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 Telephone [facility] Oncology [address] [place] [address] 8 [place] [address] Marcia Dugan MD 05/17/2025 12:23 PM CDT - 05/17/2025 11:59 PM CDT Hospital Encounter [facility] [address] [place] [address] Discharge Disposition: Discharge to home or self care 05/17/2025 12:22 PM CDT - 05/17/2025 11:59 PM CDT Hospital Encounter [facility] [address] [place] [address] 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, estrogen receptor positive (HCC) Discharge Disposition: Discharge to home or self care 05/17/2025 12:22 PM CDT - 05/17/2025 11:59 PM CDT Hospital Encounter [facility] [address] [place] [address] 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, estrogen receptor positive (HCC) Discharge Disposition: Discharge to home or self care 05/16/2025 Orders Only [facility] Medicine Oncology [address] [place] [address] 8 [place] [address] Michelle Jones NP Malignant neoplasm metastatic to bone (HCC) (Primary Dx); Malignant neoplasm of central portion of left male breast, unspecified estrogen receptor status (HCC); Persons encountering health services in other specified circumstances 05/16/2025 Orders Only [facility] Medicine Oncology [address] [facility] [address] [place] [address] Marcia Dugan MD 05/05/2025 Telephone [facility] Medicine Otolaryngology [address] [place] [address] Ava Hughes MS 05/03/2025 11:15 AM CDT Office Visit [facility] Sleep Medicine at [address] [place] [address] Darlene Tapia MD Obstructive sleep apnea (Primary Dx); Overweight; Hypersomnia, unspecified; Insomnia, unspecified type 04/29/2025 Results Follow-Up [facility] Oncology [facility] Floor 8 [place] [address] Marcia Dugan MD Basic metabolic panel, eGFR 04/28/2025 3:00 PM CDT Lab [facility] Medicine Oncology Lab [address] [place] [address] Floor 5 [place] [address] 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, estrogen receptor positive (HCC); 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) 04/28/2025 2:45 PM CDT Lab [facility] - Lab Collection [address] [place] [address] Floor 5 [place] [address] 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, estrogen receptor positive (HCC); 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) 04/21/2025 2:15 PM CDT Infusion [facility] - Infusion [address] [place] [address] Floor 5 [place] [address] Malignant neoplasm metastatic to bone (HCC) (Primary Dx); 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, estrogen receptor positive (HCC) 04/21/2025 1:30 PM CDT Lab [facility] - Lab Collection [address] [facility] Floor 5 [place] [address] 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, estrogen receptor positive (HCC); Malignant neoplasm metastatic to bone (HCC) 04/21/2025 Results Follow-Up [facility] Oncology [address] [facility] [address] [place] [address] Marcia Dugan MD Basic metabolic panel, eGFR, PSA diagnostic, Additional followed-up results: 5 04/19/2025 Orders Only [facility] Medicine Oncology [address] [facility] [address] [place] [address] Marcia Dugan MD Malignant neoplasm metastatic to bone (HCC) (Primary Dx); Malignant neoplasm of central portion of left male breast, unspecified estrogen receptor status (HCC); Persons encountering health services in other specified circumstances 04/04/2025 1:15 PM CDT Office Visit [facility] Sleep Medicine at [address] [place] [address] Darlene Tapia MD Obstructive sleep apnea (Primary Dx); Hypersomnia, unspecified; Insomnia, unspecified type; Overweight from Last 3 Months Immunizations Immunization Administration [...] 2 Ramez Escobar Cancer Brother 3 Enmanuel Escobar Prostate cancer Brother 3 Enmanuel Escobar Heart [...] on file Legal Sex Male 2:25 AM STRAW BALER Gender Identity Male 08/26/2023 5:32 PM STRAW BALER Sexual Orientation Straight 08/26/2023 5: 32 PM STRAW BALER Obstetrics History Last Filed Vital Signs Vital Sign Reading Time Taken Comments Blood Pressure 124/74 06/27/2025 1:31 PM CDT Pulse 105 06/27/2025 1:31 PM CDT Temperature 36.3 C (97.4 F) 06/16/2025 1:36 PM CDT Respiratory Rate 18 06/16/2025 1:36 PM CDT Oxygen Saturation 95% 06/16/2025 1:36 PM CDT Inhaled Oxygen Concentration - - Weight 106.6 kg (235 lb) 06/27/2025 1:31 PM CDT Height 188 cm (6' 2) 06/27/2025 1:31 PM CDT Body Mass Index 30.17 06/27/2025 1:31 PM CDT Plan of Treatment Scheduled Procedures Name Priority Associated Diagnoses Date/Ti me DRUG INDUCED SLEEP ENDOSCOPY. MIGUEL (obstructive sleep apnea) Health Maintenance Due Date Last Done Comments Colon Cancer Screening-Colonoscopy 1950 Depression Screening 1950 Hepatitis C Screening 1950 Well Visit 65+ 2017 Fall Risk Assessment 09/30/2024 09/30/2023 Covid-19 Vaccine (2024- 6 season) 2025 12/31/2021, 06/01/2021, 11/12/2020, Additional [...] history exists Medical Devices Implanted Type Area Kelp Gatherer Device Identifier Shelf Expiration Date Model / Serial / Lot Stents-11/26/19 06 Implanted:Qty: 1 on 11/25/2005 Heart Stent- 6 Implanted:Qty: 1 on 05/07/2016 Heart [employer] Fx247-5 Urolift Implant Urological - [id number] Implanted:Qty: 1 on 07/27/2018 by Clara Lam MD at [facility] N/A: Urethra [employer] [id number] 11/13/2018 FF300-8 / / [id number] [employer] [id number] Urolift Implant Urological - [id number] Implanted:Qty: 1 on 07/27/2018 by Clara Lam MD at [facility] N/A: Urethra [employer] 11/13/2018 VZ693-5 / / [id number] [employer] Kf540-3 Urolift Implant Urological - [id number] Implanted:Qty: 1 on 07/27/2018 by Clara Lam MD at [facility] N/A: Urethra [employer] 11/13/2018 [id number] / / [id number] [employer] Ne354-2 Urolift Implant Urological - [id number] Implanted:Qty: 1 on 07/27/2018 by Clara Lam MD at [facility] N/A: Urethra [employer] 11/13/2018 PF570-1 / / [id number] Procedures Procedure Name Priority Date/Time Associated Diagnosis Comments CANCER ANTIGEN 15-3 Routine 06/16/2025 1 :30 PM CDT 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 Results from different manufacturers or methods may not be comparable. Serial testing should be performed using the same method. Blood 06/16/2025 1:30 PM CDT 06/16/2025 1:55 PM CDT Marcia Dugan MD LAB BLOOD ORDERABLES Final Result [facility] Department [place] [address] * (ABNORMAL) eGFR (05/19/2025 12:31 PM CDT) Pathologist [facility] eGFR 54(L) >=60 mL/min/1. 73 m2 Comment: [...] 1 PM CDT 05/19/2025 12:33 PM CDT us Marcia Dugan MD LAB BLOOD ORDERABLES Final Result DENIA LOPES [facility] Department [place] [address] * Differential, auto (05/19/2025 12:31 PM CDT) Neutrophil abs 1.76 1.50 - 6.50 K/cumm Comment:Testing performed by : [facility]e [facility], [address] [place] [phone] Lymphocyte abs 1.44 0.80 - 3.30 K/cumm CERVITALY LPOES Comment:Testing performed by : [facility], [address] [place] [phone] Monocyte abs 0.35 0.20 - 0.80 K/cumm CERVITALY BJ Comment:Testing performed by : [facility], [address] [place] [phone] Eosinophil abs 0.06 0.00 - 0.50 K/cumm CERVITALY BJ Comment:Testing performed by : [facility], [address] [place] [phone] Basophil abs 0.02 0.00 - 0.10 K/cumm CERVITALY BJ Comment:Testing performed by : [facility], [address] [place] [phone] Neutrophil pct 48.4 % DENIA LOPES Comment: Interpretive Data Percent cell count reference ranges are not reported, since discordance with absolute values may lead to misinterpretation of CBC data. Current Interpretive Data was last revised on 2017. Testing performed by: [facility], [address] [place] [phone] Lymphocyte pct 39.6 % CERNER BJ Comment: Interpretive Data Percent cell count reference ranges are not reported, since discordance with absolute values may lead to misinterpretation of CBC data. Current Interpretive Data was last revised on 2017. Testing performed by: [facility], [address] [place] [phone] Monocyte pct 9.7 % CERNER BJ Comment: Interpretive Data Percent cell count reference ranges are not reported, since discordance with absolute values may lead to misinterpretation of CBC data. Current Interpretive Data was last revised on 2017. Testing performed by: [facility], [address] [place] [phone] Eosinophil pct 1.6 % CERVITALY BJ Comment: Interpretive Data Percent cell count reference ranges are not reported, since discordance with absolute values may lead to misinterpretation of CBC data. Current Interpretive Data was last revised on 2017. Testing performed by: [facility], [address] [place] [phone] Basophil pct 0.7 % CERNER BJ Comment: Interpretive Data Percent cell count reference ranges are not reported, since discordance with absolute values may lead to misinterpretation of CBC data. Current Interpretive Data was last revised on 2017. Testing performed by: [facility], [address] [place] [phone] Blood 05/19/2025 12:3 1 PM CDT 05/19/2025 12:32 PM CDT Marcia Dugan MD LAB BLOOD ORDERABLES Final Result YOMIVITALY MARIANNE [facility] Department [place] [address] * (ABNORMAL) CBC with auto differential (05/19/2025 12:31 PM CDT) [facility] WBC 3.64(L) 3.80 - 9.90 K/cumm Comment:Testing performed by : [facility], [address] [place], [place] [phone] Hgb 13.6 13.0 - 17.5 g/dL CERNER BJ Comment:Testing performed by : [facility], [address] [place], [place] [phone] Hct 40.2 38.9 - 50.3 % CERNER BJ Comment:Testing performed by : [facility], [address] [place] [address] Plt 151 150 - 400 K/cumm CERNER BJ Comment:Testing performed by : [facility], [address] [place], [place] [phone] MPV 7.3 6.8 - 10.4 fL CERNER BJ Comment:Testing performed by : [facility], [address] [place], [place] [phone] RBC 4.19(L) 4.30 - 5.80 M/cumm CERNER BJ Comment:Testing performed by : [facility], [address] [place] [address] MCV 95.8 81.3 - 96.4 fL CERNER BJ Comment:Testing performed by : [facility], [address] [place] [address] MCH 32.5 27.1 - 33.3 pg CERNER BJ Comment:Testing performed by : [facility], [address] [place] [address] MCHC 34.0 32.3 - 35.7 g/dL CERNER BJ Comment:Testing performed by : [facility], [address] [place] [address] RDW CV 15.1(H) 11.1 - 14.9 % CERNER BJ Comment:Testing performed by : [facility], [address] [place] [address] NRBC abs 0.00 0.00 - 0.01 K/cumm CERNER BJ Comment:Testing performed by : [facility], [address] [place] [phone] Blood 05/19/2025 12:3 1 PM CDT 05/19/2025 12:32 PM CDT Marcia Dugan MD LAB BLOOD ORDERABLES Final Result Performing Organization Address [facility] de Phone Number [facility] [place] [address] * (ABNORMAL) Cancer antigen 15-3 (05/19/2025 12:31 [...] BLOOD ORDERABLES Final Result Performing Organization Address [facility] de Phone Number [facility] [place] [address] * PSA diagnostic (05/19/2025 12:31 PM CDT) [...] 1 PM CDT 05/19/2025 12:33 PM CDT us Marcia Dugan MD LAB BLOOD ORDERABLES Final Result [facility] Department [place] [address] * (ABNORMAL) Comprehensive metabolic panel (05/19/2025 12:31 PM CDT) Sodium 138 135 - 145 mmol/L Potassium, pl 4.4 3.3 - 4.9 mmol/L [facility] Chloride 102 97 - 110 mmol/L [facility] CO2 27 22 - 32 mmol/L [facility] Anion gap 9 2 - 15 mmol/L [facility] BUN 29(H) 6 - 25 mg/dL [facility] Creatinine 1.38(H) 0.80 - 1.30 mg/dL [facility] Glucose 73 70 - 199 mg/dL [facility] Comment: Interpretive Data Fasting glucose >/= 126 [...] classification and Diagnosis of Diabetes Diabetes Care 2021; 46: S19-S40. Current interpretive data was last revised 2022. Calcium 9.1 8.5 - 10.3 mg/dL [facility] Bilirubin, total 0.4 0.1 - 1.2 mg/dL [facility] Protein, pl 5.8(L) 6.5 - 8.5 g/dL [facility] Albumin 3.7 3.5 - 5.0 g/dL [facility] Alk phos 87 40 - 130 Units/L [facility] ALT 11 7 - 55 Units/L [facility] AST 15 10 - 50 Units/L [facility] Blood 05/19/2025 12:3 1 PM CDT 05/19/2025 12:33 PM CDT us Marcia Dugan MD LAB BLOOD ORDERABLES Final Result [facility] Department [place] [address] * NM bone scan whole body (05/17/2025 [...] it. Electronically signed by: Tank Farrar DO Narrative 05/17/2025 5:18 PM CDT EXAMINATION: BONE SCINTIGRAPHY [...] it. Electronically signed by: Tank Farrar DO Marcia Dugan MD IMG NM PROCEDURES Final Re sult * CT [...] it. Electronically signed by: Patsy Collazo M.D. us Marcia Dugan MD IMG CT PROCEDURES Final [...] of Race in Diagnosing Kidney Disease, JASN 202). The CKD-EPI equation should not be used for patients with unstable renal function and has not been validated in children and those over 70. Current interpretive data was last reviewed 2021. Blood 04/28/2025 2:50 PM CDT 04/28/2025 2:58 PM CDT Marcia Dugan MD LAB BLOOD ORDERABLES Final Result [facility] Department [place] [address] * (ABNORMAL) Basic metabolic panel (04/28/2025 2:50 PM CDT) Pathologist [facility] Sodium 141 135 - 145 mmol/L Potassium, pl 4.5 3.3 - 4.9 mmol/L [facility] Chloride 104 97 - 110 mmol/L [facility] CO2 28 22 - 32 mmol/L [facility] Anion gap 9 2 - 15 mmol/L [facility] BUN 23 6 - 25 mg/dL [facility] Creatinine 1.55(H) 0.80 - 1.30 mg/dL [facility] Glucose 97 70 - 199 mg/dL [facility] Comment: Interpretive Data Fasting glucose >/= 126 [...] classification and Diagnosis of Diabetes Diabetes Care 2021; 46: S19-S40. Current interpretive data was last revised 2022. Calcium 9.8 8.5 - 10.3 mg/dL [facility] Blood 04/28/2025 2:50 PM CDT 04/28/2025 2:58 PM CDT Marcia Dugan MD LAB BLOOD ORDERABLES Final Result Performing Organization Address City/[facility]/ZIP Co de Phone Number [facility] Department [place] [address] * (ABNORMAL) eGFR (04/21/2025 1:30 PM CDT) Pathologist [facility] eGFR 45(L) >=60 mL/min/1. 73 m2 Comment: [...] 1:30 PM CDT 04/21/2025 1:30 PM CDT us Marcia Dugan MD LAB BLOOD ORDERABLES Final Result [facility] Department [place] [address] * (ABNORMAL) Basic metabolic panel (04/21/2025 1:30 PM CDT) Sodium 144 135 - 145 mmol/L Potassium, pl 4.4 3.3 - 4.9 mmol/L [facility] Chloride 107 97 - 110 mmol/L [facility] CO2 28 22 - 32 mmol/L [facility] Anion gap 9 2 - 15 mmol/L [facility] BUN 30(H) 6 - 25 mg/dL [facility] Creatinine 1.62(H) 0.80 - 1.30 mg/dL [facility] Glucose 71 70 - 199 mg/dL [facility] Comment: Interpretive Data Fasting glucose >/= 126 [...] classification and Diagnosis of Diabetes Diabetes Care 2021; 46: S19-S40. Current interpretive data was last revised 2022. Calcium 9.4 8.5 - 10.3 mg/dL [facility] Blood 04/21/2025 1:30 PM CDT 04/21/2025 1:30 PM CDT us Marcia Dugan MD LAB BLOOD ORDERABLES Final Result [facility] Department [place] [address] from Last 3 Months Insurance MEDICARE [facility] CHOICE PLUS MEDICARE [facility] CHOICE PLUS [facility] MEDICARE [facility] CHOICE PLUS Advance Directives For more information, please contact: [phone] * Full Code (Latest Code Status on File) Date Activated Date Inactivated Comments 10/05/2018 4:45 PM 10/07/2018 4:45 PM Care Teams Medical Equipment Technician Relationship Specialty Start Date End Date Bang Hester MD [address] [place] [address] PCP - General Family Practice 05/27/24 Layla Kirby MD Radiation Oncologist Radiation Oncology 09/05/23 Angela Whitfield MD PhD [address] [facility] [id number] [place] [address] Surgeon Surgical Oncology 09/05/23 Fabio Sanchez DO [address] [place] [address] Medical Oncologist/Supply Analyst Hematology and Oncology 09/05/23 Marcia Dugan MD [address] [place] [address] Medical Oncologist/Supply Analyst Medical Oncology 05/19/25
--- OUTSIDE RECORDS SUMMARY | 2025-06-30 14:26 | XMS_ITS | Encounter Summary ---
Author Organization [facility] Healthcare Address [address] [place] [address] Care Team Providers Care Director Of Managed Care Name Role Phone Layla Kirby MD Unavailable [phone] Angela Whitfield MD PhD Unavaila ble Fabio Sanchez DO Unavailable [phone] Bang Hester MD Primary Care Provider [phone] Marcia Dugan MD Unavailable [phone] Encounter Details Date Type Department Care Team (Late st Contact Info) Description 10/11/2024 Orders Only [facility] Information Management [address] [place] [address] Scanning, Provider Social History Tobacco Use Types [...] on file Legal Sex Male 2:25 AM HISTOLOGICAL ILLUSTRATOR Gender Identity Male 08/26/2023 5:32 PM HISTOLOGICAL ILLUSTRATOR Sexual Orientation Straight 08/26/2023 5: 32 PM HISTOLOGICAL ILLUSTRATOR documented as of this encounter Plan of Treatment Scheduled Procedures Name Priority Associated Diagnoses Date/Ti me DRUG INDUCED SLEEP ENDOSCOPY. MIGUEL (obstructive sleep apnea) documented as of this encounter Procedures Procedure Name Priority Date/Time Associated Diagnosis Comments CARDIOLOGY DOCUMENT SCAN 10/11/2024 documented in this encounter Results * Cardiology Document Scan (10/11/2024) Anatomical Region Laterality Modality Other us Provider Scanning CV CARDIAC SERVICES PROCEDURES Final Result documented in this encounter Visit Diagnoses Not on filedocumented in this encounter Care Teams Director Of Managed Care Relationship Specialty Start Date End Date Bang Hester MD [facility] [address] [address] PCP - General Family Practice 05/27/24 Layla Kirby MD Radiation Oncologist Radiation Oncology 09/05/23 Angela Whitfield MD PhD [address] [facility] [id number] [place] [address] Surgeon Surgical Oncology 09/05/23 Fabio Sanchez DO [address] [place] [address] Medical Oncologist/Township Clerk Hematology and Oncology 09/05/23 Marcia Dugan MD [address] [place] [address] Medical Oncologist/Township Clerk Medical Oncology 05/19/25 documented as of this encounter
--- OUTSIDE RECORDS SUMMARY | 2025-06-30 14:26 | XMS_ITS | Clinical Summary ---
Author Organization [facility] Address [address] [place] [address] Care Team Providers Care Hr Administrative Assistant Name Role Phone Jalyn Lockett MD Primary Care Provider Source Comments [facility],non-owned Affiliates and Associated Physician Practices is amultiple site organization consisting of ambulatory clinics and hospital sitesin [place], [place], [place] and [place]. This disclosure is being madepursuant to the Care Everywhere program and may not contain all information available regarding this patient. Last updated 18.[facility] Allergies Active Allergy Reactions Criticality Noted Date [...] on file Legal Sex Male 6:14 PM DUMPSTER OPERATOR Gender Identity Not on file Sexual Orientation [...] patient's age to complete [place] [address] MEDICARE [facility] MEDICARE [facility] Care Teams Hr Administrative Assistant Relationship Specialty Start Date End Date Jalyn Locktet MD [address] [place] [address] [address] [place] [address] PCP - General 03/21/15
--- OUTSIDE RECORDS SUMMARY | 2025-06-30 14:26 | XMS_ITS | Encounter Summary ---
Author Organization [facility] Address [address] [place] [address] Phone Care Team Providers Care Folder Operator Name Role Phone Layla Kirby MD Unavailable [phone] Angela Whitfield MD PhD Unavaila ble Fabio Sanchez DO Unavailable [phone] Bang Hester MD Primary Care Provider [phone] Marcia Dugan MD Unavailable [phone] Encounter Details Date Type Department Care Team (Late st Contact Info) Description 06/29/[address] [facility] Medicine Oncology [address] [facility] [address] [place] [id number] Marcia Dugan MD 10 [facility] 7825 [address] Malignant neoplasm metastatic to bone (HCC) [...] on file Legal Sex Male 2:25 AM PLATFORM WORKER Gender Identity Male 08/26/2023 5:32 PM PLATFORM WORKER Sexual Orientation Straight 08/26/2023 5: 32 PM PLATFORM WORKER documented as of this encounter Ordered Prescriptions [...] day, preferably in the morning. 42 tablet 08/11/20 25 documented in this encounter Plan of Treatment [...] other specified circumstances documented in this encounter Care Teams Folder Operator Relationship Specialty Start Date End Date Bang Hester MD [address] [place] [address] PCP - General Family Practice 05/27/24 Layla Kirby MD Radiation Oncologist Radiation Oncology 09/05/23 Angela Whitfield MD PhD [address] [place] [phone] [address] Surgeon Surgical Oncology 09/05/23 Fabio Sanchez DO [address] [place] [address] Medical Oncologist/Mine Car Mechanic Hematology and Oncology 09/05/23 Marcia Dugan MD [address] [address] Medical Oncologist/Mine Car Mechanic Medical Oncology 05/19/25 documented as of this encounter
--- OUTSIDE RECORDS SUMMARY | 2025-06-30 14:26 | XMS_ITS | Encounter Summary ---
Author Organization [facility] Address [address] [place] [address] Phone Care Team Providers Care Demolition Crane Operator Name Role Phone Lucero Flores COMPLIANCE ASSOCIATE Unavailable [phone] Lucero Flores COMPLIANCE ASSOCIATE Primary Care Provider + Layla Kirby MD Unavailable [phone] Angela Whitfield MD PhD Unavaila ble Fabio Sanchez DO Unavailable [phone] Rosalia Ibrahim MD Primary Care Provider + Yobani Escobar NP Primary Care Provider [phone] Bang Hester MD Primary Care Provider [phone] Marcia Dugan MD Unavailable [phone] Encounter Details Date Type Department Care Team (Late st Contact Info) Description 09/02/2018 Telephone [facility] - [facility] Medicine Urology [address] [facility] 11th [place] [address] [place] [address] Erlin Reyes Social History Tobacco Use Types Packs/Day Years Used Date Smoking Tobacco: Never Smokeless Tobacco: Never Alcohol Use Standard Drinks/Week Comments Yes 7 (1 standard drink = 0.6 oz pur e alcohol) Sex and Gender Information Value Date Recorded Sex Assigned at Not on file Legal Sex Male 2:25 AM TRAIN DIRECTOR Gender Identity Male 08/26/2023 5:32 PM TRAIN DIRECTOR Sexual Orientation Straight 08/26/2023 5: 32 PM TRAIN DIRECTOR documented as of this encounter Plan of [...] documented as of this encounter Care Teams Demolition Crane Operator Relationship Specialty Start Date End Date Lucero Flores NP PCP - General Nurse Practitioner 04/27/18 11/05/23 Rosalia Ibrahim MD [address] [place] [address] PCP - General Family Medicine 11/06/23 03/31/24 Yobani Escobar NP [address] [place] [address] PCP - General Family Medicine 04/01/24 05/26/24 Bang Hester MD [address] [place] [address] PCP - General Family Practice 05/27/24 Lucero Flores NP Nurse Practitioner 05/23/17 11/12/23 Layla Kirby MD Radiation Oncologist Radiation Oncology 09/05/23 Angela Whitfield MD PhD [address] [facility] [phone] [place] [address] Surgeon Surgical Oncology 09/05/23 Fabio Sanchez DO [address] [place] [address] Medical Oncologist/Housekeeping Coordinator Hematology and Oncology 09/05/23 Marcia Dugan MD [address] [place] [address] Medical Oncologist/Housekeeping Coordinator Medical Oncology 05/19/25 documented as of this encounter
--- OUTSIDE RECORDS SUMMARY | 2025-06-30 14:27 | XMS_ITS | Encounter Summary ---
Author Organization [facility] Address [address] [place] [address] Phone Care Team Providers Care Freelance Photographer Name Role Phone Layla Kirby MD Unavailable [phone] Angela Whitfield MD PhD Unavaila ble Fabio Sanchez DO Unavailable [phone] Bang Hester MD Primary Care Provider [phone] Marcia Dugan MD Unavailable [phone] Encounter Details Date Type Department Care Team (Late st Contact Info) Description 04/29/2025 Results Follow-Up [facility] Medicine Oncology [address] [facility] Floor 8 [place] [address] Marcia Dugan MD 10 [facility] 8056 [place] [address] Basic metabolic panel, eGFR Social [...] on file Legal Sex Male 2:25 AM KENNEL ASSISTANT Gender Identity Male 08/26/2023 5:32 PM KENNEL ASSISTANT Sexual Orientation Straight 08/26/2023 5: 32 PM KENNEL ASSISTANT documented as of this encounter Plan of Treatment Scheduled Procedures Name Priority Associated Diagnoses Date/Ti me DRUG INDUCED SLEEP ENDOSCOPY. MIGUEL (obstructive sleep apnea) documented as of this encounter Visit Diagnoses Not on filedocumented in this encounter Care Teams Freelance Photographer Relationship Specialty Start Date End Date Bang Hester MD [address] [place] [address] PCP - General Family Practice 05/27/24 Layla Kirby MD Radiation Oncologist Radiation Oncology 09/05/23 Angela Whitfield MD PhD [address] [facility] [phone] [place] [address] Surgeon Surgical Oncology 09/05/23 Fabio Sanchez DO [address] [place] [address] Medical Oncologist/Coating Mixer Tender Hematology and Oncology 09/05/23 Marcia Dugan MD [address] [place] [address] Medical Oncologist/Coating Mixer Tender Medical Oncology 05/19/25 documented as of this encounter
--- OUTSIDE RECORDS SUMMARY | 2025-06-30 14:27 | XMS_ITS | Encounter Summary ---
Author Organization [facility] Address [address] [place] [address] Phone Care Team Providers Care Supervisor Money Room Name Role Phone Jalyn Lockett MD Primary Care Provider + [phone] Lucero Flores GRAPPLE SKIDDER OPERATOR Unavailable [phone] Lavern Harris GRAPPLE SKIDDER OPERATOR Primary Care Provider [phone] Lucero Flores GRAPPLE SKIDDER OPERATOR Primary Care Provider + Layla Kirby MD Unavailable [phone] Angela Whitfield MD PhD Unavaila ble Fabio Sanchez DO Unavailable [phone] Rosalia Ibrahim MD Primary Care Provider + Yobani Escobar GRAPPLE SKIDDER OPERATOR Primary Care Provider [phone] Bang Hester MD Primary Care Provider + [phone] Marcia Dugan MD Unavailable [phone] Encounter Details Date Type Department Care Team [...] on file Legal Sex Male 2:25 AM FRUIT PRESERVER Gender Identity Male 08/26/2023 5:32 PM FRUIT PRESERVER Sexual Orientation Straight 08/26/2023 5: 32 PM FRUIT PRESERVER documented as of this encounter Plan of [...] documented as of this encounter Care Teams Supervisor Money Room Relationship Specialty Start Date End Date Jalyn Lockett MD [address] [address] PCP - General 11/30/12 05/22/17 Lavern Harris NP [address] [address] PCP - General Nurse Practitioner 05/23/17 04/26/18 Lucero Flores NP [address] [address] PCP - General Nurse Practitioner 04/27/18 11/05/23 Rosalia Ibrahim MD [address] [place] [address] PCP - General Family Medicine 11/06/23 03/31/24 Yobani Escobar GRAPPLE SKIDDER OPERATOR [address] [place] [address] PCP - General Family Medicine 04/01/24 05/26/24 Bang Hester MD [address] [place] [address] [place] [address] PCP - General Family Practice 05/27/24 Lucero Flores NP [address] [address] Nurse Practitioner 05/23/17 11/12/23 Layla Kirby MD [address] [address] Radiation Oncologist Radiation Oncology 09/05/23 Angela Whitfield MD PhD [address] [facility] [id number] [place] [address] Surgeon Surgical Oncology 09/05/23 Fabio Sanchez DO [address] [place] [address] Medical Oncologist/Potato Loader Hematology and Oncology 09/05/23 Marcia Dugan MD [address] [place] [address] Medical Oncologist/Potato Loader Medical Oncology 05/19/25 documented as of this encounter
== END 2025-06-30 13:32 | disposition home or self-care (01) ==
PROVIDERS: PCP Family Medicine; Visit Provider Orthopaedic Surgery
DX: M79.605 Pain in left leg (principal); M79.89 Other specified soft tissue disorders
CPT/HCPCS: 93971

== ENCOUNTER 2025-07-17 15:22 | Emergency (ER) | payer MEDICARE, OTHER, SELFPAY ==
--- NOTE | ~2025-07-17 | CT_ITS ---
EXAMINATION: CT brain wo anh, 07/17/2025 15:35 SHINGLES ROOFER HELPER HISTORY: fall, head injury COMPARISON: No comparisons available. Technique: Axial images obtained of the brain without contrast. One or more of the following dose reduction techniques were used: automated exposure control, adjustment of the mA and/or kV according to patient size, use of iterative reconstruction technique. Findings: No acute infarct or parenchymal hemorrhage. No abnormal mass or mass effect. No midline shift. No extra-axial fluid collections. No hydrocephalus. Mastoid air cells unremarkable. Sinuses and orbits unremarkable. No acute fracture. No significant facial or scalp soft tissue swelling evident. No radiopaque foreign body is seen. Impression: 1.No acute intracranial abnormality. Reviewed, dictated and finalized at location P. GLES ROOFER HELPER Impression: 1.No acute intracranial abnormality.
--- NOTE | ~2025-07-17 | XR_ITS ---
EXAMINATION: XR shoulder RT min 2V, 07/17/2025 15:57 BUTTER FAT TESTER HISTORY: right shoulder pain, fall COMPARISON: No comparisons available. Findings: No acute fracture or malalignment. No significant degenerative changes. Soft tissues unremarkable. Impression: No acute fracture or malalignment. Reviewed, dictated and finalized at location P. ER FAT TESTER Impression: No acute fracture or malalignment.
--- NOTE | ~2025-07-17 | CT_ITS ---
EXAMINATION: CT cervical spine wo con COMPARISON: None HISTORY: fall, head injury TECHNIQUE: Axial images were obtained through the spine without IV contrast. Coronal, sagittal reconstruction images were obtained from the axial views. CT scan performed using dose optimization techniques including the following automated exposure control; adjustment of mA and/or kV; use of iterative reconstruction technique. Automatic exposure control was used to reduce radiation dose. Permanent radiation dose record is archived to PACS. FINDINGS: There are scattered sclerotic foci of the bone islands in the absence of prior neoplasm, no acute fracture or subluxation is identified. Moderate loss of disc height throughout most marked at C3-4 C4-5 and C5-6 with moderate to severe canal and foraminal stenosis. Soft tissues unremarkable. Impression: No acute fracture identified Reviewed, dictated and finalized at location P. [facility]MER Impression: No acute fracture identified
--- OUTSIDE RECORDS SUMMARY | 2025-07-17 15:24 | XMS_ITS | Encounter Summary ---
Author Organization [facility] Address [address] [place] [address] Phone Care Team Providers Care Iridologist Name Role Phone Layla Kirby MD Unavailable [phone] Angela Whitfield MD PhD Unavaila ble Fabio Sanchez DO Unavailable [phone] Bang Hester MD Primary Care Provider [phone] Marcia Dugan MD Unavailable [phone] Encounter Details Date Type Department Care Team (Late st Contact Info) Description 07/15/2025 Telephone [facility] Medicine Oncology [address] [facility] Floor 8 [place] [address] Marcia Dugan MD 10 [facility] 7641 [place] [address] Social History Tobacco Use Types Packs/Day Years Used Date Smoking Tobacco: Never Passive Smoke Exposure: Never Smokeless Tobacco: Never Alcohol Use Standard Drinks/Week Comments Yes 4 (1 standard drink = 0.6 oz pur e alcohol) AUDIT-C Answer Date Recorded Q1: How often do you have a drink containing alcohol? 4 or more times a week 07/12/2025 Q2: How many drinks containi ng alcohol do you have on a typical day when you are drinking? 1 or 2 Q3: How often do you have si x or more drinks on one occasion? Never 07/12/2025 Personal Safety Answer Date Recorded Have you ever been in or are you currently in a harmful physical or emotional relationship or is someone making you feel afraid or unsafe? Denies 07/12/2025 Sex and Gender Information Value Date Recorded Sex Assigned at Not on file Legal Sex Male 2:25 AM EXCELSIOR MACHINE OPERATOR Gender Identity Male 08/26/2023 5:32 PM EXCELSIOR MACHINE OPERATOR Sexual Orientation Straight 08/26/2023 5: 32 PM EXCELSIOR MACHINE OPERATOR documented as of this encounter Miscellaneous Notes * Telephone Encounter - Marcia Dugan MD - 07/15/2025 7:04 PM EXCELSIOR MACHINE OPERATOR Medical Oncology Provider Call Note I attempted to reach Mr Rose and his x Anibal, unable to reach them. I have left a message that I have called to discuss PET and requesting a call back. Guardant sent and pending. LSIOR MACHINE OPERATOR documented in this encounter Plan of Treatment Not on file documented as of this encounter Visit Diagnoses Not on filedocumented in this encounter Care Teams Iridologist Relationship Specialty Start Date End Date Bang Hester MD [address] [place] [address] PCP - General Family Practice 05/27/24 Layla Kirby MD Radiation Oncologist Radiation Oncology 09/05/23 Angela Whitfield MD PhD [address] [phone] [place] [address] Surgeon Surgical Oncology 09/05/23 Fabio Sanchez DO [address] [place] [address] Medical Oncologist/Litigator Hematology and Oncology 09/05/23 Marcia Dugan MD [address] [place] [address] Medical Oncologist/Litigator Medical Oncology 05/19/25 documented as of this encounter
--- OUTSIDE RECORDS SUMMARY | 2025-07-17 15:24 | XMS_ITS | Encounter Summary ---
Author Organization [facility] Address [address] [place] [address] Phone Care Team Providers Care Computer Engineer Name Role Phone Jalyn Lockett MD Primary Care Provider [phone] Lucero Flores BUS DRIVER Unavailable [phone] Lavren Harris BUS DRIVER Primary Care Provider [phone] Lucero Flores BUS DRIVER Primary Care Provider + Layla Kirby MD Unavailable [phone] Angela Whitfield MD PhD Unavaila ble Fabio Sanchez DO Unavailable [phone] Rosalia Ibrahim MD Primary Care Provider + Yobani Escobar BUS DRIVER Primary Care Provider [phone] Bang Hester MD Primary Care Provider + [phone] Marcia Dugan MD Unavailable Encounter Details Date Type Department Care Team [...] on file Legal Sex Male 2:25 AM CEMENT CRUSHER OPERATOR Gender Identity Male 08/26/2023 5:32 PM CEMENT CRUSHER OPERATOR Sexual Orientation Straight 08/26/2023 5: 32 PM CEMENT CRUSHER OPERATOR documented as of this encounter Plan of [...] documented as of this encounter Care Teams Computer Engineer Relationship Specialty Start Date End Date Jalyn Lockett MD [address] [address] PCP - General 11/30/12 05/22/17 Lavern Harris NP [address] [address] PCP - General Nurse Practitioner 05/23/17 04/26/18 Lucero Flores NP [address] [employer] [address] PCP - General Nurse Practitioner 04/27/18 11/05/23 Rosalia Ibrahim MD [address] [place] [address] PCP - General Family Medicine 11/06/23 03/31/24 Yobani Escobar NP [address] [place] [address] PCP - General Family Medicine 04/01/24 05/26/24 Bang Hester MD [address] [place] [address] PCP - General Family Practice 05/27/24 Lucero Flores NP [address] [address] Nurse Practitioner 05/23/17 11/12/23 Layla Kirby MD [address] [address] Radiation Oncologist Radiation Oncology 09/05/23 Angela Whitfield MD PhD [address] [place] [phone] [place] [address] Surgeon Surgical Oncology 09/05/23 Fabio Sanchez DO [address] [place] [address] Medical Oncologist/Tea Tree Farm Worker Hematology and Oncology 09/05/23 Marcia Dugan MD [address] [place] [address] Medical Oncologist/Tea Tree Farm Worker Medical Oncology 05/19/25 documented as of this encounter
--- OUTSIDE RECORDS SUMMARY | 2025-07-17 15:24 | XMS_ITS ---
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, G2, ER+, ME-, HER2-) - Signed by Layla Kirby MD [...] (09/03/2018): Added automatically from request for surgery [id number] Benign prostatic hyperplasia with lower urinary tract symptoms 07/08/2018 Overview (07/08/2018): Added automatically from request for surgery [id number] Non-STEMI (non-ST elevated myocardial infarction ) 05/19/2018 History of non-ST elevation myocardial infarctio n (NSTEMI) 10/28/2017 Depressive disorder 05/20/2017 Nocturia 05/20/2017 Hyperlipidemia 05/20/2017 Myocardial infarction 05/20/2017 Presence of stent in coronary artery 08/29/2016 Overview (12/13/2016): Stented coronary artery Old myocardial infarction 08/29/2016 Overview (12/13/2016): Old myocardial infarction Coronary arteriosclerosis in [place] artery 11/30 Overview (12/11/2016): CRNRY ATHRSCL NATVE [...] Medications Current Day (Day 1 , Cycle 9 - Planned for 08/11/2025) Next Day (Day 1, Cycle 10 - Planned for 09/09/2025) goserelin (ZOLADEX) goserelin (ZOLADEX) injection 3.6 mg [...] Treatment Medications Discontinue Reason Plan Provider Cycles [phone] - [facility] [[email or web address] - Breast - OP-1250 - 003 - Dose Expansion - Treatment Group 1 - OP-1250 / Ribociclib 4 10/09/2023 INV[facility] OP-1250 (/O P-1250-003)INV -[facility] ribociclib (/O P-1250-003) Toxicity/Compl ication Marcia Dugan [...]
--- OUTSIDE RECORDS SUMMARY | 2025-07-17 15:24 | XMS_ITS | Clinical Summary ---
Author Organization [facility] Address [address] [place] [address] Care Team Providers Care Survey Technologist Name Role Phone Jalyn Lockett MD Primary Care Provider Source Comments [facility],non-owned Affiliates and Associated Physician Practices is amultiple site organization consisting of ambulatory clinics and hospital sitesin [place], [place], [place] and [place]. This disclosure is being madepursuant to the Care Everywhere program and may not contain all information available regarding this patient. Last updated 18.[facility] Allergies Active Allergy Reactions Criticality Noted Date [...] on file Legal Sex Male 6:14 PM QUICK SKETCH ARTIST Gender Identity Not on file Sexual Orientation [...] patient's age to complete [place] [address] MEDICARE [facility] MEDICARE [facility] Care Teams Survey Technologist Relationship Specialty Start Date End Date Jalyn Lockett MD [address] [place] [address] 40 [place] [address] PCP - General 03/21/15
--- OUTSIDE RECORDS SUMMARY | 2025-07-17 15:24 | XMS_ITS | Encounter Summary ---
Author Organization [facility] Healthcare Address [address] [place] [address] Care Team Providers Care Curtain Cutter Hand Name Role Phone Layla Kirby MD Unavailable [phone] Angela Whitfield MD PhD Unavaila ble Fabio Sanchez DO Unavailable [phone] Bang Hester MD Primary Care Provider [phone] Marcia Dugan MD Unavailable [phone] Encounter Details Date Type Department Care Team (Late st Contact Info) Description 10/11/2024 Orders Only [facility] [place] [facility] Information Management [address] [place] [id number] Scanning, Provider Social History Tobacco Use Types [...] on file Legal Sex Male 2:25 AM SYSTEMS NAVIGATOR Gender Identity Male 08/26/2023 5:32 PM SYSTEMS NAVIGATOR Sexual Orientation Straight 08/26/2023 5: 32 PM SYSTEMS NAVIGATOR documented as of this encounter Plan of [...] on filedocumented in this encounter Care Teams Curtain Cutter Hand Relationship Specialty Start Date End Date Bang Hester MD [address] [address] PCP - General Family Practice 05/27/24 Layla Kirby MD Radiation Oncologist Radiation Oncology 09/05/23 Angela Whitfield MD PhD [address] [facility] [id number] [place] [address] Surgeon Surgical Oncology 09/05/23 Fabio Sanchez DO [address] [place] [id number] Medical Oncologist/Video Network Engineer Hematology and Oncology 09/05/23 Marcia Dugan MD [address] [place] [address] Medical Oncologist/Video Network Engineer Medical Oncology 05/19/25 documented as of this encounter
--- OUTSIDE RECORDS SUMMARY | 2025-07-17 15:24 | XMS_ITS | Clinical Summary ---
Author Organization [facility] [place] [address] Address [address] [place] [address] Care Team Providers Care Principal Technologist Name Role Phone Layla Kirby MD Unavailable [phone] Angela Whitfield MD PhD Unavaila ble Fabio Sanchez DO Unavailable Bang Hester MD Primary Care Provider [phone] Marcia Dugan MD Unavailable [phone] Allergies Active Allergy Reactions Criticality Noted Date [...] by mouth daily. 1 tablet 019 Active Additional Information Patient taking differently:81 mg oralEvery morning, Informant: Self, Reported on 07/12/2025 ascorbic acid (VITAMIN C) 500 mg tablet,chewable Take 1 tablet/chew tab (500 mg total) by mouth every morning Active finasteride (PROSCAR) 5 mg tablet Take 1 tablet (5 mg total) by mouth nightly Active gabapentin (NEURONTIN) 300 mg capsule Take 1 capsule (300 mg total) by mouth 2 (two) times a day Active letrozole (FEMARA) 2.5 mg tabletIndication s:Malignant neoplasm metastatic to bone (HCC),Malignant neoplasm of central portion of left male breast, unspecified estrogen receptor status (HCC),Persons encountering health services in other specified circumstances Take 1 tablet by mouth once daily 330 tablet Active Additional Information Patient taking differently:2.5 mg oralNightly, Informant: Self, Reported on 07/12/2025 losartan (COZAAR) 25 mg tablet Take 1 tablet (25 mg total) by mouth daily 30 tablet 11 2025 Active Additional Information Patient taking differently:25 mg oralEvery morning, Informant: Self, Reported on 07/12/[address] (CAMPRAL) 333 mg EC tabletIndication s:alcoholism Take 2 tablets (666 mg total) by mouth 3 (three) times a day 180 tablet 2 Active Additional Information Patient not taking.Informant: Self, Reported on 07/01/2025 mirtazapine (REMERON) 15 mg tablet Take 1 [...] the morning. 42 tablet 025 2024 Active calcium carbonate-vitami n D3 1,500 mg (600 mg elemental)-400 unit tablet,chewable Take 1 tablet by mouth 2 (two) times a day Active HYDROcodone-acet aminophen (NORCO) 5-325 mg per tablet Take 1 tablet by mouth every 4 (four) hours as needed for pain Active omeprazole 20 mg tablet,delayed release (DR/EC) Take 1 tablet (20 mg total) by mouth every morning Active traZODone (DESYREL) 150 mg tablet TAKE 2 TABLETS BY MOUTH NIGHTLY 30 tablet Active temazepam (RESTORIL) 30 mg capsule TAKE 2 CAPSULES BY MOUTH NIGHTLY NEEDED FOR SLEEP 30 capsule Active omeprazole (PriLOSEC) 20 mg capsule Take 1 capsule (20 mg total) by mouth every morning 2024 Discontinued(D uplicate order) triamcinolone (KENALOG) 0.1 % cream Apply topically 2024 Discontinued(T herapy completed) hydrocortisone 2.5 % cream Apply topically 2 (two) times a day as needed for rash or irritation 2024 Discontinued(T herapy completed) tamsulosin (FLOMAX) 0.4 mg extended release capsule Take 1 capsule (0.4 mg total) by mouth nightly 2024 Discontinued(A lternate therapy) evolocumab (Repathgabe Don) 140 mg/mL pen injector Inject 1 mL (140 mg total) under the skin every 14 (fourteen) days 2 mL 11 2024 Discontinued(T herapy completed) temazepam (RESTORIL) 30 mg capsule TAKE 2 CAPSULES BY MOUTH NIGHTLY NEEDED FOR SLEEP 60 capsule 2024 Discontinued traZODone (DESYREL) 150 mg tablet TAKE 2 TABLETS BY MOUTH NIGHTLY 60 tablet 2024 Discontinued(T herapy completed) cephalexin (KEFLEX) 250 mg capsule TAKE 1 CAPSULE BY MOUTH THREE TIMES DAILY NEEDED FOR URINARY INFECTION FOR 3 DAYS 2024 Discontinued(T herapy completed) diclofenac DR (VOLTAREN) 75 mg EC tablet Take 1 tablet (75 mg total) by mouth 2 (two) times a day 2024 Discontinued(T herapy completed) traZODone (DESYREL) 150 mg tablet Take 2 tablets (300 mg total) by mouth nightly 30 tablet 3 2024 Discontinued mirtazapine (REMERON) 15 mg tablet Take 1 tablet by mouth nightly 30 tablet 025 2024 Discontinued temazepam (RESTORIL) 30 mg capsule TAKE 2 CAPSULES BY MOUTH NIGHTLY NEEDED FOR SLEEP 30 capsule 2024 Discontinued ribociclib (KISQALI) 400 mg/day tabletIndication [...] in the morning. 42 tablet 025 2024 traZODone (DESYREL) 150 mg tablet TAKE 2 TABLETS BY MOUTH NIGHTLY 30 tablet 025 2024 Discontinued temazepam (RESTORIL) 30 mg capsule TAKE 2 CAPSULES BY MOUTH NIGHTLY NEEDED FOR SLEEP 30 capsule 2024 Discontinued(D uplicate order) Active Problems Problem Noted Date Diagnosed Date [...] from 09/05/2023:Stage IV(cT4, cN3b, cM1, G2, ER+, ID-, HER2-) - Signed by Layla Kirby MD [...] carcinoma of skin 04/18/2021 Overview (09/23/2023): nahum kou. Cardiomegaly 11/05/2020 Precordial pain 10/10/2020 SOB (shortness of breath) 10/10/2020 Thrombocytopenia 10/10/2020 Renal insufficiency 10/18/2019 Bilateral hearing loss 10/11/2019 Bladder outlet obstruction 09/03/2018 Overview (09/03/2018): Added automatically from request for surgery [id number] Benign prostatic hyperplasia with lower urinary tract symptoms 07/08/2018 Overview (07/08/2018): Added automatically from request for surgery [id number] Non-STEMI (non-ST elevated myocardial infarction ) 05/19/2018 History of non-ST elevation myocardial infarctio n (NSTEMI) 10/28/2017 Depressive disorder 05/20/2017 Nocturia 05/20/2017 Hyperlipidemia 05/20/2017 Myocardial infarction 05/20/2017 Presence of stent in coronary artery 08/29/2016 Overview (12/13/2016): Stented coronary artery Old myocardial infarction 08/29/2016 Overview (12/13/2016): Old myocardial infarction Coronary arteriosclerosis in wrangell artery 11/30 Overview (12/11/2016): CRNRY ATHRSCL NATVE [...] Encounters Date Type Department Care Team Description 07/15/2025 Telephone [facility] Medicine Oncology [address] [place] [address] Floor 8 [place] [address] Marcia Dugan MD 07/14/2025 2:30 PM SENIOR SUSTAINABILITY ADVISOR Infusion [facility] - Infusion [address] [facility] Floor 5 [place] [address] Malignant neoplasm metastatic to bone (HCC) (Primary Dx); 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, estrogen receptor positive (HCC); 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 07/14/2025 1:30 PM SENIOR SUSTAINABILITY ADVISOR Lab [facility] - Lab Collection [address] [facility] Floor 5 [place] [address] 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, estrogen receptor positive (HCC); Malignant neoplasm metastatic to bone (HCC) 07/14/2025 10:09 AM SENIOR SUSTAINABILITY ADVISOR - 07/14/2025 11:59 PM SENIOR SUSTAINABILITY ADVISOR Hospital Encounter [facility] - PET [facility] Floor 8 [place] [address] Arrived Discharge Disposition: Discharge to home or self care 07/14/2025 10:09 AM SENIOR SUSTAINABILITY ADVISOR - 07/14/2025 11:59 PM SENIOR SUSTAINABILITY ADVISOR Hospital Encounter [facility] - PET [address] [facility] Floor 8 [place] [address] 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, estrogen receptor positive (HCC); Malignant neoplasm metastatic to bone (HCC) Discharge Disposition: Discharge to home or self care 07/13/2025 Orders Only [facility] Medicine Oncology [address] [place] [address] 8 [place] [phone] Fátima Vance RN 07/13/2025 Orders Only [facility] Oncology [address] [place], [place] [address] [place] [phone] Marcia Dugan MD 07/13/2025 Orders Only [facility] Oncology [address] [place] [phone] Marcia Dugan MD 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, estrogen receptor positive (HCC) (Primary Dx); Malignant neoplasm metastatic to bone (HCC) 07/12/2025 11:30 AM [facility] - 07/12/2025 12:00 PM [facility] Surgery [facility] Operating Room [address] [place] [address] Heather Mcintyre MD DRUG INDUCED SLEEP ENDOSCOPY [[id number] (CPT )] 07/12/2025 10:33 AM [facility] Anesthesia Event [facility] Operating Room [address] [place] [address] Ava Zhou DO Ifune, Catherine K., MD PhD 07/12/2025 7:56 AM SENIOR SUSTAINABILITY ADVISOR - 07/12/2025 12:05 PM [facility] Hospital Encounter [facility] Operating Room [address] [place] [address] Heather Mcintyre MD MIGUEL (obstructive sleep apnea) (Primary Dx) Discharge Disposition: Discharge to home or self care 06/29/2025 Orders Only [facility] Oncology [address] [place] [address] [address] [place] [phone] Marcia Dugan MD Malignant neoplasm metastatic to bone (HCC) (Primary Dx); Malignant neoplasm of central portion of left male breast, unspecified estrogen receptor status (HCC); Persons encountering health services in other specified circumstances 06/27/2025 1:20 PM CDT Office Visit [facility]) - [facility] Medicine ENT [address] [facility] [address] [place] [address] Heather Mcintyre MD MIGUEL (obstructive sleep apnea) (Primary Dx); Intolerance of continuous positive airway pressure (CPAP) ventilation 06/20/2025 Telephone [facility] Oncology [address] [place] [address] [address] [place] [phone] Janet Edwards, contract mail carrier Results 06/20/2025 Orders Only [facility] Oncology [address] [place] [address] 8 [place] [address] Marcia Dugan MD 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, estrogen receptor positive (HCC) (Primary Dx); Malignant neoplasm metastatic to bone (HCC) 06/17/2025 Telephone [facility] Oncology [address] [place] [address] 8 [place] [address] Marcia Dugan MD 06/16/2025 2:30 PM CDT Infusion [facility] - Infusion [address] [place] [address] Floor 5 [place] [address] Malignant neoplasm metastatic to bone (HCC) (Primary Dx); 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, estrogen receptor positive (HCC) 06/16/2025 1:30 PM CDT Lab [facility] - Lab Collection [address] [place] [address] 5 [place] [address] 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, estrogen receptor positive (HCC); Malignant neoplasm metastatic to bone (HCC) 06/10/2025 Orders Only [facility] Oncology [address] [place] [address] 8 [place] [address] Marcia Dugan MD 06/09/2025 Orders Only [facility] Oncology [address] [place] [address] 8 [place] [address] Marcia Dugan MD Malignant neoplasm metastatic to bone (HCC) (Primary Dx); Malignant neoplasm of central portion of left male breast, unspecified estrogen receptor status (HCC); Persons encountering health services in other specified circumstances 06/08/2025 Orders Only [facility] Oncology [address] [facility] Floor 8 [place] [address] Marcia Dugan MD 06/07/2025 Telephone [facility] Medicine Oncology [address] [facility] [address] [place] [phone] Janet Edwards, RN follow up 06/07/2025 Orders Only [facility] Oncology [address] [facility] [address] [place] [address] Marcia Dugan MD 05/27/2025 Telephone [facility] Medical Group Cardiology [address] [place] [phone] Nicko Sheikh MD cardiac clearance 05/25/2025 Telephone [facility] Oncology [address] [place] [address] [address] [place] [phone] Janet Edwards furniture technician 05/20/2025 12:00 PM CDT Office Visit [facility] Psychiatry [address] [facility] [address] [place] [phone] Lisandro Wilkins MD Major depressive disorder in full remission, unspecified whether recurrent (Primary Dx) 05/20/2025 Orders Only [facility] Oncology [facility] Floor 8 [place] [address] Marcia Dugan MD 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, estrogen receptor positive (HCC) (Primary Dx); Malignant neoplasm metastatic to bone (HCC) 05/19/2025 2:30 PM CDT Infusion [facility] - Infusion [address] [facility] Floor 6 [place] [address] Malignant neoplasm metastatic to bone (HCC) (Primary Dx); 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, estrogen receptor positive (HCC) 05/19/2025 1:20 PM CDT Office Visit [facility] Oncology [address] [facility] Floor 8 [place] [address] Marcia Dugan MD Malignant neoplasm metastatic to bone (HCC) (Primary Dx); 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, estrogen receptor positive (HCC) 05/19/2025 12:45 PM CDT Lab [facility] - Lab Collection [address] [facility] Floor 5 [place] [address] 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, estrogen receptor positive (HCC); Malignant neoplasm metastatic to bone (HCC); 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 Telephone [facility] Medicine Oncology [address] [facility] 8 [place] [address] Marcia Dugan MD 05/17/2025 12:23 PM CDT - 05/17/2025 11:59 PM CDT Hospital Encounter [facility] ([facility]) [address] [place] [address] Discharge Disposition: Discharge to home or self care 05/17/2025 12:22 PM CDT - 05/17/2025 11:59 PM CDT Hospital Encounter [facility] ([facility]) [address] [place] [address] 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, estrogen receptor positive (HCC) Discharge Disposition: Discharge to home or self care 05/17/2025 12:22 PM CDT - 05/17/2025 11:59 PM CDT Hospital Encounter [facility] ([facility]) [address] [place] [address] 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, estrogen receptor positive (HCC) Discharge Disposition: Discharge to home or self care 05/16/2025 Orders Only [facility] Medicine Oncology [facility] 8 [place] [address] Michelle Jones NP Malignant neoplasm metastatic to bone (HCC) (Primary Dx); Malignant neoplasm of central portion of left male breast, unspecified estrogen receptor status (HCC); Persons encountering health services in other specified circumstances 05/16/2025 Orders Only [facility] Medicine Oncology [address] [facility] [address] [place] [phone] Marcia Dugan MD 05/05/2025 Telephone [facility] Medicine Otolaryngology [address] [place] [address] Ava Hughes MS 05/03/2025 11:15 AM CDT Office Visit [facility] Medical Group Sleep Medicine at [address] [place] [address] Darlene Tapia MD Obstructive sleep apnea (Primary Dx); Overweight; Hypersomnia, unspecified; Insomnia, unspecified type 04/29/2025 Results Follow-Up [facility] Oncology [address] [place] [address] Floor 8 [place] [address] Marcia Dugan MD Basic metabolic panel, eGFR 04/28/2025 3:00 PM CDT Lab [facility] Medicine Oncology Lab [address] [place] [address] Floor 5 [place] [address] 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, estrogen receptor positive (HCC); 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) 04/28/2025 2:45 PM CDT Lab [facility] - Lab Collection [address] [place] [address] Floor 5 [place] [address] 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, estrogen receptor positive (HCC); 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) 04/21/2025 2:15 PM CDT Infusion [facility] - Infusion [address] [facility] Floor 5 [place] [address] Malignant neoplasm metastatic to bone (HCC) (Primary Dx); 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, estrogen receptor positive (HCC) 04/21/2025 1:30 PM CDT Lab [facility] - Lab Collection [address] [place] [address] Floor 5 [place] [address] 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, estrogen receptor positive (HCC); Malignant neoplasm metastatic to bone (HCC) 04/21/2025 Results Follow-Up [facility] Medicine Oncology [address] [facility] [address] [place] [address] Marcia Dugan MD Basic metabolic panel, eGFR, PSA diagnostic, Additional followed-up results: 5 04/19/2025 Orders Only [facility] [address] [facility] [address] [place] [address] Marcia Dugan MD Malignant neoplasm metastatic to bone (HCC) (Primary Dx); Malignant neoplasm of central portion of left male breast, unspecified estrogen receptor status (HCC); Persons encountering health services in other specified circumstances from Last 3 Months Immunizations Immunization Administration [...] COLONOSCOPY ESOPHAGOGASTRODUODENOSCOPY SUPERFICIAL BONE BIOPSY 09/30/2023 N/A DRUG INDUCED SLEEP ENDOSCOPY 07/12/2025 Throat/N/A Procedure: DRUG INDUCED SLEEP ENDOSCOPY; Surgeon: Heather Mcintyre MD; Location: OPERATING ROOM; Service: Otolaryngology; Laterality: N/A; Medical History Medical History Date Comments Gastroesophageal reflux disease GERD Erectile dysfunction Angina pectoris Prostate hyperplasia with urinary obstruction CAD (coronary artery disease) Heart attack (HCC) 04/2016 Anterio STEMI Localized swelling of lower extremity Dyslipidemia Stenosis of peripheral vascular stent 2011 Chest pain Anxiety Depression Bladder fistula Cancer (HCC) left breast, bon e, lung Heart disease CHF (congestive heart failure) (HCC) Sleep apnea Chronic kidney disease History of lung cancer History of bone cancer in adulthood History of breast cancer left MIGUEL (obstructive sleep apnea) Family History Medical History Relation Name Comments [...] Answered Alcohol Use Standard Drinks/Week Comments Yes 4 [...] on file Legal Sex Male 2:25 AM SENIOR SUSTAINABILITY ADVISOR Gender Identity Male 08/26/2023 5:32 PM SENIOR SUSTAINABILITY ADVISOR Sexual Orientation Straight 08/26/2023 5: 32 PM SENIOR SUSTAINABILITY ADVISOR Last Filed Vital Signs Vital Sign Reading Time Taken Comments Blood Pressure 144/74 07/14/2025 12:46 PM SENIOR SUSTAINABILITY ADVISOR Pulse 74 07/14/2025 12:46 PM SENIOR SUSTAINABILITY ADVISOR Temperature 36.1 C (97 F) 07/14/2025 12:46 PM SENIOR SUSTAINABILITY ADVISOR Respiratory Rate 18 07/14/2025 12:4 6 PM SENIOR SUSTAINABILITY ADVISOR Oxygen Saturation 100% 07/14/2025 12: 46 PM SENIOR SUSTAINABILITY ADVISOR Inhaled Oxygen Concentration - - Weight 108.4 kg (238 lb 15.7 oz) 2024 12:46 PM SENIOR SUSTAINABILITY ADVISOR Height 188 cm (6' 2) 07/12/2025 8:08 AM SENIOR SUSTAINABILITY ADVISOR Body Mass Index 30.68 07/12/2025 8:08 AM SENIOR SUSTAINABILITY ADVISOR Plan of Treatment Health Maintenance Due Date Last Done Comments Colon Cancer Screening-Colonoscopy 1950 Depression Screening 1950 Hepatitis C Screening 1950 Well Visit 65+ 2017 Covid-19 Vaccine (2024-2 6 season) 2025 12/31/2021, 06/01/2021, 11/12/2020, Additional history exists Influenza Vaccine (#1) 2025 , 05/23/2021, 05/16/2020, Additional history exists Fall Risk Assessment 07/12/2026 07/12/2025 Prostate Cancer Screening-PSA 05/19/2027, 09/15/2023, 06/02/2018 DTaP/Tdap/Td Vaccine (3 - Td or Tdap) 05/20/2027 05/20/2017, 05/20/2017, 11/06/1999 Hepatitis B Screening Completed 02/28/2005 , 09/20/2004, 08/16/2004 Pneumococcal vaccine 65+ Completed 05/20/2018, 05/09 Zoster Vaccine Completed 07/30/2019, 05/10, 05/28/2019, Additional history exists Medical Devices Implanted Type Area Geological Engineering Teacher Device Identifier Shelf Expiration Date Model / Serial / Lot Stents-11/26/19 06 Implanted:Qty: 1 on 11/25/2005 Heart Stent- 6 Implanted:Qty: 1 on 05/07/2016 Heart [employer] [id number] Urolift Implant Urological - [id number] Implanted:Qty: 1 on 07/27/2018 by Clara Lam MD at [facility] N/A: Urethra [employer] [id number] 11/13/2018 [id number] / / [id number] [employer] [id number] Urolift Implant Urological - [id number] Implanted:Qty: 1 on 07/27/2018 by Clara Lam MD at [facility] N/A: Urethra [employer] 11/13/2018 [id number] / / [id number] [employer] [id number] Urolift Implant Urological - [id number] Implanted:Qty: 1 on 07/27/2018 by Clara Lam MD at [facility] N/A: Urethra [employer] 11/13/2018 [id number] / / [id number] [employer] [id number] Urolift Implant Urological - [id number] Implanted:Qty: 1 on 07/27/2018 by Clara Lam MD at [facility] N/A: Urethra [employer] 11/13/2018 [id number] / / [id number] Procedures Procedure Name Priority Date/Time Associated Diagnosis Comments EGFR Routine 07/14/2025 12:37 PM SENIOR SUSTAINABILITY ADVISOR 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, estrogen receptor positive (HCC) Malignant neoplasm metastatic to bone (HCC) BASIC METABOLIC PANEL Routine 07/14/2025 12:37 PM SENIOR SUSTAINABILITY ADVISOR 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, estrogen receptor positive (HCC) Malignant neoplasm metastatic to bone (HCC) CANCER ANTIGEN 15-3 Routine 07/14/2025 1 2:37 PM SENIOR SUSTAINABILITY ADVISOR 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, estrogen receptor positive (HCC) Malignant neoplasm metastatic to bone (HCC) PET/CT FDG SKULL TO THIGH Schedule Routine, Read Routine (OP Routine) 07/14/2025 12:10 PM SENIOR SUSTAINABILITY ADVISOR 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, estrogen receptor positive (HCC) Malignant neoplasm metastatic to bone (HCC) ID DISE DYN EVAL SLEEP DISORDERED BREATHING FLX DX 07/12/2025 10:34 AM SENIOR SUSTAINABILITY ADVISOR MIGUEL (obstructive sleep apnea) Special Needs DR MCINTYRE REQUESTS 5 MINS FOR CASE/2 WEEK POST OP CANCER ANTIGEN 15-3 Routine 06/16/2025 1 :30 [...] (HCC) from Last 3 Months Results * eGFR (07/14/2025 12:37 PM SENIOR SUSTAINABILITY ADVISOR) eGFR 61 >=60 mL/min/1. 73 m2 Comment: Interpretive Data [...] interpretive data was last reviewed 2021. Blood 07/14/2025 12:3 7 PM SENIOR SUSTAINABILITY ADVISOR 07/14/2025 12:45 PM SENIOR SUSTAINABILITY ADVISOR Marcia Dugan MD LAB BLOOD ORDERABLES Final Result Performing Organization Address [facility] de Phone Number [facility] [email or web address] [address] * (ABNORMAL) Cancer antigen 15-3 (07/14/2025 12:37 PM SENIOR SUSTAINABILITY ADVISOR) [facility] [place] 15-3 ag 231.0(H) <=25.0 units/mL Comment: Interpretive Data The Umm CA 15-3 assay procedure was used. Results from different manufacturers or methods may not be comparable. Serial testing should be performed using the same method. Blood 07/14/2025 12:3 7 PM SENIOR SUSTAINABILITY ADVISOR 07/14/2025 1:10 PM SENIOR SUSTAINABILITY ADVISOR Marcia Dugan MD LAB BLOOD ORDERABLES Final Result Performing Organization Address City/[facility] Co de Phone Number [facility] [email or web address] [address] * Basic metabolic panel (07/14/2025 12:37 PM SENIOR SUSTAINABILITY ADVISOR) [facility] Sodium 140 135 - 145 mmol/L Potassium, pl 4.4 3.3 - 4.9 mmol/L [facility] Chloride 103 97 - 110 mmol/L [facility] CO2 30 22 - 32 mmol/L [facility] Anion gap 7 2 - 15 mmol/L [facility] BUN 23 6 - 25 mg/dL [facility] Creatinine 1.25 0.80 - 1.30 mg/dL [facility] Glucose 93 70 - 199 mg/dL [facility] Comment: Interpretive Data Fasting glucose >/= 126 [...] interpretive data was last revised 2022. Calcium 9.2 8.5 - 10.3 mg/dL [facility] Blood 07/14/2025 12:3 7 PM SENIOR SUSTAINABILITY ADVISOR 07/14/2025 12:45 PM SENIOR SUSTAINABILITY ADVISOR Marcia Dugan MD LAB BLOOD ORDERABLES Final Result [facility] Department [place] [address] * PET/CT FDG Skull to Thigh (07/14/2025 12:10 PM SENIOR SUSTAINABILITY ADVISOR) Anatomical Region Laterality Modality N/A Positron Emissio n Tomography (PET) 07/14/2025 2:47 PM SENIOR SUSTAINABILITY ADVISOR Impressions 07/14/2025 5:43 PM SENIOR SUSTAINABILITY ADVISOR Findings consistent with widely metastatic breast cancer including hepatic, likely pulmonary and osseous metastases. Dictated by: Debbie Fernandez MD The radiology attending physician has personally reviewed this study, and had reviewed and/or edited this written report and agrees with it. Electronically signed by: Ramez Wu M.D. Narrative 07/14/2025 5:43 PM SENIOR SUSTAINABILITY ADVISOR EXAMINATION: TUMOR FDG-PET/CT IMAGING DATE OF STUDY: 07/14/2025 SCANNER: [facility] [employer] (SQ1). This is a high-resolution scanner, which can result in higher SUVs (and even detection of previously unrecognized small lesions) compared to older scanners. RADIOPHARMACEUTICAL: 7.5 mCi F-18 Fluorodeoxyglucose (FDG) i.v. Injection site: Right antecubital HISTORY: Metastatic breast cancer initially diagnosed in 2022. He is currently on letrozole and ribociclib. Patient has additional history of low risk prostate cancer (Jaspreet 6, diagnosed in September 2023 most recent PSA <0.02. The study is requested for treatment monitoring during therapy. Subsequent treatment strategy. TECHNIQUE: The patient's fasting blood glucose level, measured by glucometer before injection of FDG, was 87 mg/dL. After intravenous administration of FDG, noncontrast CT images were obtained for attenuation correction and for fusion with emission PET images to allow for anatomical localization of PET findings. Emission PET images were then obtained. The study was interpreted on the [employer] workstation. The mean liver SUV (reported for quality control head purposes) is 2.6. The total scanned area was skull vertex to proximal thighs. Images of the body were obtained starting 69 minutes after injection of tracer. All reported SUVs are maximum SUVs, unless otherwise specified. COMPARISON: Bone scintigraphy 05/17/2025, CT chest abdomen pelvis 05/17/2025 DESCRIPTORS OF LESION FDG AVIDITY: Minimal: <= blood pool Mild: > blood pool and <= liver Moderate: > liver and <= 2x SUVmax liver Moderate to marked: >2x SUVmax liver and <= 3x SUVmax liver Marked: > 3x SUVmax liver FINDINGS: Postbiopsy changes are noted within a mildly avid left breast mass measuring 2.0 cm within the retroareolar region, consistent with biopsy-proven invasive ductal carcinoma. Left lower lobe pulmonary nodule lung base with SUV 2.9 measuring 6 mm (142/354. Limited evaluation of additional known pulmonary nodules given motion and resolution of PET/CT. Multiple avid osseous lesions noted throughout the axial skeleton involving multiple ribs, vertebral bodies, and the left hemisacrum. For reference, sclerotic lesion within the L4 vertebral body with SUV 8.6 (226/354) within the left 5th posterior rib with SUV 11.5 (112/354) and within the left hemisacrum with SUV 11.4 (242/354) there are additional sclerotic lesions throughout the axial skeleton which do not show significant avidity and may represent previously treated disease. For reference, within the right scapula with SUV 1.6 (113/354) Hypermetabolic lesion within the caudate with SUV 9.9 (155/354) measuring approximately 1 cm although this is difficult to characterize given technique. Additional CT findings: Left anterior descending coronary artery stent. Coronary artery disease. Fatty metaplasia within the left anterior descending coronary artery territory, consistent with prior infarct. Cholecystectomy. Left renal cyst. Urolift procedure. Colonic diverticulosis. Moderate calcified atherosclerotic disease within the infrarenal abdominal aorta. Healed right rib fracture. Procedure Note Ramez Wu MD - 07/14/2025 EXAMINATION: TUMOR FDG-PET/CT IMAGING DATE OF STUDY: 07/14/2025 SCANNER: [employer] (SQ1). This is a high-resolution scanner, which can result in higher SUVs (and even detection of previously unrecognized small lesions) compared to older scanners. RADIOPHARMACEUTICAL: 7.5 mCi F-18 Fluorodeoxyglucose (FDG) i.v. Injection site: Right antecubital HISTORY: Metastatic breast cancer initially diagnosed in 2022. He is currently on letrozole and ribociclib. Patient has additional history of low risk prostate cancer (Jaspreet 6, diagnosed in September 2023 most recent PSA <0.02. The study is requested for treatment monitoring during therapy. Subsequent treatment strategy. TECHNIQUE: The patient's fasting blood glucose level, measured by glucometer before injection of FDG, was 87 mg/dL. After intravenous administration of FDG, noncontrast CT images were obtained for attenuation correction and for fusion with emission PET images to allow for anatomical localization of PET findings. Emission PET images were then obtained. The study was interpreted on the [employer] workstation. The mean liver SUV (reported for quality control head purposes) is 2.6. The total scanned area was skull vertex to proximal thighs. Images of the body were obtained starting 69 minutes after injection of tracer. All reported SUVs are maximum SUVs, unless otherwise specified. COMPARISON: Bone scintigraphy 05/17/2025, CT chest abdomen pelvis 05/17/2025 DESCRIPTORS OF LESION FDG AVIDITY: Minimal: <= blood pool Mild: > blood pool and <= liver Moderate: > liver and <= 2x SUVmax liver Moderate to marked: >2x SUVmax liver and <= 3x SUVmax liver Marked: > 3x SUVmax liver FINDINGS: Postbiopsy changes are noted within a mildly avid left breast mass measuring 2.0 cm within the retroareolar region, consistent with biopsy-proven invasive ductal carcinoma. Left lower lobe pulmonary nodule lung base with SUV 2.9 measuring 6 mm (142/354. Limited evaluation of additional known pulmonary nodules given motion and resolution of PET/CT. Multiple avid osseous lesions noted throughout the axial skeleton involving multiple ribs, vertebral bodies, and the left hemisacrum. For reference, sclerotic lesion within the L4 vertebral body with SUV 8.6 (226/354) within the left 5th posterior rib with SUV 11.5 (112/354) and within the left hemisacrum with SUV 11.4 (242/354) there are additional sclerotic lesions throughout the axial skeleton which do not show significant avidity and may represent previously treated disease. For reference, within the right scapula with SUV 1.6 (113/354) Hypermetabolic lesion within the caudate with SUV 9.9 (155/354) measuring approximately 1 cm although this is difficult to characterize given technique. Additional CT findings: Left anterior descending coronary artery stent. Coronary artery disease. Fatty metaplasia within the left anterior descending coronary artery territory, consistent with prior infarct. Cholecystectomy. Left renal cyst. Urolift procedure. Colonic diverticulosis. Moderate calcified atherosclerotic disease within the infrarenal abdominal aorta. Healed right rib fracture. IMPRESSION: Findings consistent with widely metastatic breast cancer including hepatic, likely pulmonary and osseous metastases. Dictated by: Debbie Fernandez MD The radiology attending physician has personally reviewed this study, and had reviewed and/or edited this written report and agrees with it. Electronically signed by: Ramez Wu M.D. Marcia Dugan MD [facility] PET PROCEDURES Final R esult * (ABNORMAL) Cancer antigen 15-3 (06/16/2025 1:30 PM CDT) CA 15-3 ag 169.0(H) <=25.0 units/mL Comment: Interpretive Data The Umm CA 15-3 assay procedure was used. Results from different manufacturers or methods may not be comparable. Serial testing should be performed using the same method. Blood 06/16/2025 1:30 PM CDT 06/16/2025 1:55 PM CDT Marcia Dugan MD LAB BLOOD ORDERABLES Final Result Performing Organization Address City/[facility] Co de Phone Number [facility] [place] [address] * (ABNORMAL) eGFR (05/19/2025 12:31 PM CDT) [...] BLOOD ORDERABLES Final Result Performing Organization Address City/[facility]/ZIP Co de Phone Number [facility] [place] [address] * Differential, auto (05/19/2025 12:31 PM CDT) Neutrophil abs 1.76 1.50 - 6.50 K/cumm Comment:Testing performed by : [facility], [address] [place] [phone] Lymphocyte abs 1.44 0.80 - 3.30 K/cumm [facility] Comment:Testing performed by : [facility], [address] [place] [phone] Monocyte abs 0.35 0.20 - 0.80 K/cumm [facility] Comment:Testing performed by : [facility], [address] [place] [phone] Eosinophil abs 0.06 0.00 - 0.50 K/cumm [facility] Comment:Testing performed by : [facility], [address] [place] [phone] Basophil abs 0.02 0.00 - 0.10 K/cumm [facility] Comment:Testing performed by : [facility], [address] [place] [address] Neutrophil pct 48.4 % [facility] Comment: Interpretive Data Percent cell count reference ranges are not reported, since discordance with absolute values may lead to misinterpretation of CBC data. Current Interpretive Data was last revised on 2017. Testing performed by: [facility], [address] [place] [phone] Lymphocyte pct 39.6 % [facility] Comment: Interpretive Data Percent cell count reference ranges are not reported, since discordance with absolute values may lead to misinterpretation of CBC data. Current Interpretive Data was last revised on 2017. Testing performed by: [facility], [address] [place] [phone] Monocyte pct 9.7 % [facility] Comment: Interpretive Data Percent cell count reference ranges are not reported, since discordance with absolute values may lead to misinterpretation of CBC data. Current Interpretive Data was last revised on 2017. Testing performed by: [facility], [address] [place] [phone] Eosinophil pct 1.6 % [facility] Comment: Interpretive Data Percent cell count reference ranges are not reported, since discordance with absolute values may lead to misinterpretation of CBC data. Current Interpretive Data was last revised on 2017. Testing performed by: [facility], [address] [place] [phone] Basophil pct 0.7 % [facility] Comment: Interpretive Data Percent cell count reference ranges are not reported, since discordance with absolute values may lead to misinterpretation of CBC data. Current Interpretive Data was last revised on 2017. Testing performed by: [facility], [address] [place] [address] Blood 05/19/2025 12:3 1 PM CDT 05/19/2025 12:32 PM CDT us Marcia Dugan MD LAB BLOOD ORDERABLES Final Result [facility] Department [place] [address] * (ABNORMAL) CBC with auto differential (05/19/2025 12:31 PM CDT) WBC 3.64(L) 3.80 - 9.90 K/cumm Comment:Testing performed by : [facility], [address] [place] [address] Hgb 13.6 13.0 - 17.5 g/dL DENIA LOPES Comment:Testing performed by : [facility], [address] [place] [address] Hct 40.2 38.9 - 50.3 % DENIA LOPES Comment:Testing performed by : [facility], [address] [place] [address] Plt 151 150 - 400 K/cumm DENIA LOPES Comment:Testing performed by : [facility], [address] [place] [address] MPV 7.3 6.8 - 10.4 fL DENIA LOPES Comment:Testing performed by : [facility], [address] [place] [address] RBC 4.19(L) 4.30 - 5.80 M/cumm DENIA LOPES Comment:Testing performed by : [facility], [address] [place], [place] [phone] MCV 95.8 81.3 - 96.4 fL DENIA [facility] Comment:Testing performed by : [facility], [address] [place], [place] [phone] MCH 32.5 27.1 - 33.3 pg DENIA [facility] Comment:Testing performed by : [facility], [address] [place], [place] [phone] MCHC 34.0 32.3 - 35.7 g/dL DENIA [facility] Comment:Testing performed by : [facility], [address] [place], [place] [phone] RDW CV 15.1(H) 11.1 - 14.9 % DENIA [facility] Comment:Testing performed by : [facility], [address] [place], [place] [phone] NRBC abs 0.00 0.00 - 0.01 K/cumm DENIA [facility] Comment:Testing performed by : [facility], [address] [place], [place] [phone] Blood 05/19/2025 12:3 1 PM CDT 05/19/2025 12:32 PM CDT Marcia Dugan MD LAB BLOOD ORDERABLES Final Result [facility] Department [place] [address] * (ABNORMAL) Cancer antigen 15-3 (05/19/2025 12:31 [...] BLOOD ORDERABLES Final Result Performing Organization Address [facility] Co de Phone Number DENIA [facility] [place] [address] * PSA diagnostic (05/19/2025 12:31 PM CDT) [...] BLOOD ORDERABLES Final Result Performing Organization Address [facility] de Phone Number DENIA [facility] Department [place] [address] * (ABNORMAL) Comprehensive metabolic panel (05/19/2025 12:31 PM CDT) Pathologist [facility] Sodium 138 135 - 145 mmol/L Potassium, pl 4.4 3.3 - 4.9 mmol/L [facility] Chloride 102 97 - 110 mmol/L [facility] CO2 27 22 - 32 mmol/L [facility] Anion gap 9 2 - 15 mmol/L [facility] BUN 29(H) 6 - 25 mg/dL [facility] Creatinine 1.38(H) 0.80 - 1.30 mg/dL [facility] Glucose 73 70 - 199 mg/dL [facility] Comment: Interpretive Data Fasting glucose >/= 126 [...] 2022. Calcium 9.1 8.5 - 10.3 mg/dL [facility] Bilirubin, total 0.4 0.1 - 1.2 mg/dL [facility] Protein, pl 5.8(L) 6.5 - 8.5 g/dL [facility] Albumin 3.7 3.5 - 5.0 g/dL [facility] Alk phos 87 40 - 130 Units/L [facility] ALT 11 7 - 55 Units/L [facility] AST 15 10 - 50 Units/L [facility] Blood 05/19/2025 12:3 1 PM CDT 05/19/2025 12:33 PM CDT us Marcia Dugan MD LAB BLOOD ORDERABLES Final Result [facility] Department [place] [address] * NM bone scan whole body (05/17/2025 3:26 PM CDT) Anatomical Region Laterality Modality N/A Nuclear Medicine 05/17/2025 4:35 PM CDT Impressions 05/17/2025 5:18 PM CDT 1. Stable osseous metastatic disease. 2. Other miscellaneous findings as above. Dictated by: Kdoi Dye M.D. The radiology attending physician has [...] Dugan MD LAB BLOOD ORDERABLES Final Result [facility] Department [place] [address] * (ABNORMAL) Basic metabolic panel (04/28/2025 2:50 PM CDT) Sodium 141 135 - 145 mmol/L Potassium, pl 4.5 3.3 - 4.9 mmol/L [facility] Chloride 104 97 - 110 mmol/L [facility] CO2 28 22 - 32 mmol/L [facility] Anion gap 9 2 - 15 mmol/L [facility] BUN 23 6 - 25 mg/dL [facility] Creatinine 1.55(H) 0.80 - 1.30 mg/dL [facility] Glucose 97 70 - 199 mg/dL [facility] Comment: Interpretive Data Fasting glucose >/= 126 [...] 2022. Calcium 9.8 8.5 - 10.3 mg/dL DENIA [facility] Blood 04/28/2025 2:50 PM CDT 04/28/2025 2:58 PM CDT Marcia Dugan MD LAB BLOOD ORDERABLES Final Result DENIA [facility] Department [place] [address] * (ABNORMAL) eGFR (04/21/2025 1:30 PM CDT) eGFR 45(L) >=60 mL/min/1. 73 m2 Comment: [...] MD LAB BLOOD ORDERABLES Final Result DENIA [facility] Department [place] [address] * (ABNORMAL) Basic metabolic panel (04/21/2025 1:30 PM CDT) Sodium 144 135 - 145 mmol/L Potassium, pl 4.4 3.3 - 4.9 mmol/L [facility] Chloride 107 97 - 110 mmol/L [facility] CO2 28 22 - 32 mmol/L [facility] Anion gap 9 2 - 15 mmol/L [facility] BUN 30(H) 6 - 25 mg/dL [facility] Creatinine 1.62(H) 0.80 - 1.30 mg/dL [facility] Glucose 71 70 - 199 mg/dL [facility] Comment: Interpretive Data Fasting glucose >/= 126 [...] 2022. Calcium 9.4 8.5 - 10.3 mg/dL [facility] Blood 04/21/2025 1:30 PM CDT 04/21/2025 1:30 PM CDT us Marcia Dugan MD LAB BLOOD ORDERABLES Final Result Performing Organization Address [facility]/ZIP Co de Phone Number DENIA [facility] Department [place] [address] from Last 3 Months Insurance MEDICARE [place] CHOICE PL[place] MEDICARE [place] CHOICE PLUS [facility] MEDICARE [place] CHOICE PLUS Advance Directives For more information, please contact: [phone] * Full Code (Latest Code Status on File) Date Activated Date Inactivated Comments 10/05/2018 4:45 PM 10/07/2018 4:45 PM Care Teams Principal Technologist Relationship Specialty Start Date End Date Bang Hester MD [address] [place] [id number] PCP - General Family Practice 05/27/24 Layla Kirby MD Radiation Oncologist Radiation Oncology 09/05/23 Angela Whitfield MD PhD [address] [facility] [phone] [place] [address] Surgeon Surgical Oncology 09/05/23 Fabio Sanchez DO [address] [place] [phone] Medical Oncologist/[facility] Director Hematology and Oncology 09/05/23 Marcia Dugan MD [address] [place] [address] Medical Oncologist/[facility] Director Medical Oncology 05/19/25
--- OUTSIDE RECORDS SUMMARY | 2025-07-17 15:24 | XMS_ITS | Data Portability ---
Author Organization [facility], Main Office Address [address] [place] [address] Care Team Providers Care Canine Service Instructor Trainer Name Role Phone LUCERO KENYON Primary Care Provider LUCERO KENYON Referring Provider [phone] Assessment No assessment recorded. Plan of Treatment Reminders Order Date Submit Date Provider Last Modified By Organization Details Last Modified Time Details Appointments None recorded. Lab MRSA + MSSA, PCR, unspecified specimen - swab left breast 2022 023 [facility] (Lab), [address] [place], [address], 3 10:50:59 Referral None recorded. Procedures None recorded. Surgeries None recorded. Imaging MAMMO, diagnostic, digital, unilateral - *Please call pt to schedule* 2022 023 [email or web address] 5 [facility] ([facility] Scheduling), [address] [place], [address], 3 09:34:21 US, breast, unilateral - if needed *Please call pt to schedule* 2022 023 [email or web address] 256 Not available 3 08:50:04 Medication Orders alprazolam 0.25 mg tablet 2023 024 [facility] [address] [place], [address], 4 12:34:27 tizanidine 4 mg tablet 2023 024 [facility] [address], [address] [facility] ([place] [place]), [place], [address], 4 12:34:26 valacyclovi r 500 mg tablet 2022 023 [email or web address] 4 [facility] [address], [address] [facility] ([place] [place]), [place], [address], 4 11:48:00 doxycycline hyclate 100 mg capsule 2022 023 [email or web address] 4 [facility] [address], [address] [facility] ([place] [place]), [place], [address], 4 11:52:36 Viberzi 100 mg tablet 2022 023 [email or web address] 4 [facility] [address], [address] [facility] ([place] [place]), [place], [address], 4 11:47:25 doxycycline hyclate 100 mg capsule 2022 023 [email or web address] 4 [facility] [address], [address] [facility] ([place] [place]), [place], [address], 4 11:52:36 zolpidem 10 mg tablet 2022 023 [facility] [address], [address], [place], [address], 3 15:56:21 doxycycline hyclate 100 mg capsule 2022 023 [email or web address] 4 [facility] [address], [address] [facility] ([place] [place]), [place], [address], 4 11:52:36 prednisone 20 mg tablet 2022 023 [email or web address] 4 [facility] [address], [address], [place], [address], 4 11:51:10 Patient TargetsNo targets recorded. Patient InstructionsNo instructions recorded. Reason for Referral None Reported. Results Created Date Observation Date Name Description Value Unit Range Abnormal Flag Note LastModifiedBy Organization Detail LastModifiedTime 06/12/2006/14/2023 MRSA MSSA SCREE LEROY CULTU RE MRSA mssa screening culture Final report Not Available [facility] [address] [facility], [place], [address], 06/14/2023 14:12:07 06/12/20 23 06/14/2023 MRSA MSSA SCREE LEROY CULTU RE result 1 COMMEN T No Methi cilli n - resis tant Staph yloco ccus aureu s. Not Available [facility] [address] [facility], [place], [address], 06/14/2023 14:12:07 06/12/20 23 06/14/2023 MRSA MSSA SCREE LEROY CULTU RE result 2 COMMEN T No Methi cilli n-treasure cepti ble Staph yloco ccus aureu s Not Available [facility] [address] [facility], [place], [address], 06/14/2023 14:12:07 07/21/20 23 07/21/2023 CBC/C OMPLE TE BLD COUNT W/DIF F white blood cells 4.4 x10'3 /uL 4.2-10 .8 Not Available [facility] [address], [place], [address], 07/21/2023 14:48:50 07/21/2007/21/2023 CBC/C OMPLE TE BLD COUNT W/DIF F red blood cells 4.66 x10'6 /uL 4.10-5 .80 Not Available [facility] [address], [place], [address], 07/21/2023 14:48:50 07/21/20 23 07/21/2023 CBC/C OMPLE TE BLD COUNT W/DIF F hemoglobin 14.4 g/dL 13.2-1 7.0 Not Available [facility] [address], [place], [address], 07/21/2023 14:48:50 07/21/2007/21/2023 CBC/C OMPLE TE BLD COUNT W/DIF F hematocrit 43.1 % 39.3-5 0.0 Not Available [facility] [address], [place], [address], 07/21/2023 14:48:50 07/21/2007/21/2023 CBC/C OMPLE TE BLD COUNT W/DIF F mean red cell volume 92.5 fL 80.0-9 7.0 Not Available [facility] [address], [place], [address], 07/21/2023 14:48:50 07/21/20 23 07/21/2023 CBC/C OMPLE TE BLD COUNT W/DIF F mean red cell hemoglobin 30.9 pg 27.0-3 3.0 Not Available [facility] [address], [place], [address], 07/21/2023 14:48:50 07/21/20 23 07/21/2023 CBC/C OMPLE TE BLD COUNT W/DIF F mean RBC HGB concentratio n 33.4 g/dL 31.0-3 6.0 Not Available [facility] [address], [place], [address], 07/21/2023 14:48:50 07/21/20 23 07/21/2023 CBC/C OMPLE TE BLD COUNT W/DIF F red cell distribution width 13.9 % 11.8-1 5.5 Not Available [facility] [address], [place], [address], 07/21/2023 14:48:50 07/21/20 23 07/21/2023 CBC/C OMPLE TE BLD COUNT W/DIF F platelets 174 x10'3 /uL 150-40 0 Not Available [facility] [address], [place], [address], 07/21/2023 14:48:50 07/21/2007/21/2023 CBC/C OMPLE TE BLD COUNT W/DIF F mean platelet volume 10.0 fL 9.0-12 .4 Not Available [facility] [address], [place], [address], 07/21/2023 14:48:50 07/21/2007/21/2023 CBC/C OMPLE TE BLD COUNT W/DIF F neutrophils 53.8 % 39.0-7 2.0 Not Available [facility] [address], [place], [address], 07/21/2023 14:48:50 07/21/20 23 07/21/2023 CBC/C OMPLE TE BLD COUNT W/DIF F lymphocytes 30.7 % 16.0-4 7.0 Not Available [facility] [address], [place], [address], 07/21/2023 14:48:50 07/21/2007/21/2023 CBC/C OMPLE TE BLD COUNT W/DIF F monocytes 13.9 % 5.0-12 .0 high Not Available [facility] [address], [place], [address], 07/21/2023 14:48:50 07/21/20 23 07/21/2023 CBC/C OMPLE TE BLD COUNT W/DIF F eosinophils 1.4 % 1.0-7. 0 Not Available [facility] [address], [place], [address], 07/21/2023 14:48:50 07/21/20 23 07/21/2023 CBC/C OMPLE TE BLD COUNT W/DIF F basophils 0.2 % 0.0-2. 0 Not Available [facility] [address], [place], [address], 07/21/2023 14:48:50 07/21/20 23 07/21/2023 CBC/C OMPLE TE BLD COUNT W/DIF F neutrophils, absolute count 2.37 x10'3 /uL 1.5-8. 0 Not Available [facility] [address], [place], [address], 07/21/2023 14:48:50 07/21/20 23 07/21/2023 CBC/C OMPLE TE BLD COUNT W/DIF F lymphocytes, absolute count 1.35 x10'3 /uL 1.07-3 .43 Not Available [facility] [address], [place], [address], 07/21/2023 14:48:50 07/21/2007/21/2023 CBC/C OMPLE TE BLD COUNT W/DIF F monocytes, absolute count 0.61 x10'3 /uL 0.29-0 .99 Not Available [facility] [address], [place], [address], 07/21/2023 14:48:50 07/21/20 23 07/21/2023 CBC/C OMPLE TE BLD COUNT W/DIF F eosinophils, absolute count 0.06 x10'3 /uL 0.02-0 .53 Not Available [facility] [address], [place], [address], 07/21/2023 14:48:50 07/21/20 23 07/21/2023 CBC/C OMPLE TE BLD COUNT W/DIF F basophils, absolute count 0.01 x10'3 /uL 0.01-0 .08 Not Available [facility] [address], [place], [address], 07/21/2023 14:48:50 07/21/20 23 07/21/2023 PROTI ME W/INR protime 10.4 secon ds 9.4-11 .9 Not Available [facility] [address], [place], [address], 07/21/2023 15:19:59 07/21/20 23 07/21/2023 PROTI ME W/INR INR 1.0 INR INDIC ATION S 2.0 - 3.0 PROPH YLAXI S: VENOU S THROM BOSIS (HIGH RISK SURGE RY) AND SYSTE MAGDIEL EMBOL ISM (TISS UE HEART VALVE S, AMI VALVU LAR HEART DISEA SE AND ATRIA L FIBRI LLATI ON). TREAT MENT: VENOU S THROM BOSIS AND PULMO NARY EMBOL ISM BILEA FLET MECHA NICAL VALVE S IN AORTI C POSIT ION. 2.5 - 3.5 MECHA NICAL PROST HETIC HEART VALVE S (TILT ING DISK VALVE S AND BILEA FLET MECHA NICAL VALVE S IN BLAISE L POSIT ION). PREVE NTION OF RECUR RENT MYOCA RDIAL INFAR CTION . ANTIP HOSPH OLIPI D SYNDR OME. Not Available [facility] [address], [place], [address], 07/21/2023 15:19:59 07/21/20 23 07/21/2023 APTT APTT 26.7 secon ds 23.4-3 4.4 Not Available [facility] [address], [place], [address], 07/21/2023 15:20:00 07/21/20 23 07/21/2023 APTT APTT 26.7 secon ds 23.4-3 4.4 Not Available [facility] (Lab) [address] [place], [address], 07/21/2023 18:03:53 07/21/20 23 07/22/2023 PROTI ME W/INR protime 10.6 secon ds 9.4-11 .9 Not Available [facility] (Lab) [address] [facility] [place], [address], 07/22/2023 09:36:48 07/21/2007/22/2023 PROTI ME W/INR INR 1.0 INR INDIC ATION S 2.0 - 3.0 PROPH YLAXI S: VENOU S THROM BOSIS (HIGH RISK SURGE RY) AND SYSTE MAGDIEL EMBOL ISM (TISS UE HEART VALVE S, AMI VALVU LAR HEART DISEA SE AND ATRIA L FIBRI LLATI ON). TREAT MENT: VENOU S THROM BOSIS AND PULMO NARY EMBOL ISM BILEA FLET MECHA NICAL VALVE S IN AORTI C POSIT ION. 2.5 - 3.5 MECHA NICAL PROST HETIC HEART VALVE S (TILT ING DISK VALVE S AND BILEA FLET MECHA NICAL VALVE S IN BLAISE L POSIT ION). PREVE NTION OF RECUR RENT MYOCA RDIAL INFAR CTION . ANTIP HOSPH OLIPI D SYNDR OME. Not Available [facility] (Lab) [address] [place], [address], 07/22/2023 09:36:48 06/27/2006/27/2023 US, domenic t, unila teral [facility] [address] [place] [address] Patiann amarie t Name: ERYN ESCOBAR ion #: [id number] Sex: M : 1949 1 Dictat ed By: Shira Head Attend ing Physic geovani: BEN SANTILLAN Orderi Physic geovani: BEN SANTILLAN Exam Date: 2022 10:27 AM Exam Name: US BREAST LIMITE D LT Admitt ing Diagno sis(es ): REASON FOR EXAM: Left breast mass with histor y of benign biopsy COMPAR JESSE: 04/09/20 22 TECHNI QUE:ML , cranio caudal and modifi ed mediol ateral obliqu e views of the left breast are obtain ed utiliz ing digita l mammog raphic images obtain ed using a mammog raphic system . 3-D imagin g with tomosy nthesi s combin ed with 2-D imagin g were acquir ed. All 4 quadra nts, subare olar region and axilla ry region of the left breast were evalua elma with ultras ound FINDIN GS: BREAST COMPOS ITION: The bilate ral breast s are almost entire ly fatty. There is a spicul ated hyperd ense mass in the left retroa reolar breast with associ ated skin thicke leroy. Biopsy marker clip is within this mass. Target ed ultras ound images of the breast demons trate a irregu lar hypoec hoic retroa reolar mass measur ing 2.9 x 2.1 cm in the left retroa reolar breast , increa sed in size compar ed to prior exam. There are abnorm al lymph nodes in the left axilla with gonzalo thicke candace cortex measur ing up to 1.4 cm. IMPRES YEE: 1. Irregu lar mass in the left retroa reolar breast with associ ated skin thicke leroy is highly sugges tive of malign malou. Althou gh this has been report ed to be previo usly biopsi ed with benign pathol ogy, recomm end repeat ultras ound-g uided biopsy or surgic al excisi on. 2. Abnorm al lymph nodes in the left axilla are highly sugges tive of malign malou. Recomm end ultras ound-g uided biopsy . Page 1 [facility] [address] [address] Patien t Name: ERYN ESCOBAR Access ion #: [id number] Sex: M : 1949 1 Dictat ed By: Shira Head Attend ing Physic geovani: TYRELL CONTRERAS Orderi Physic geovani: BEN SANTILLAN Exam Date: 2022 10:27 AM Exam Name: US BREAST LIMITE D LT Admitt ing Diagno sis(es ): Recomm end ultras ound-g uided biopsy or surgic al excisi on of left retroa reolar mass. Recomm end ultras ound-g uided biopsy of abnorm al lymph nodes in the left axilla . BIRADS : 5 - Highly Sugges tive of Malign malou Electr onical ly Signed by: Shira Head at 2022 11:02: 48 AM Page 2 [facility] (Imaging) [address], [place], [address], 07/01/2023 09:34:07 06/27/20 23 06/27/2023 MAMMO , diagn ostic , tomos ynthe sis, unila teral [facility] [address] [facility] [address], [place] [address] Patien t Name: ERYN ESCOBAR Access ion #: [id number] Sex: M : 1949 1 Dictat ed By: Shira Head Attend ing Physic geovani: BEN SANTILLAN Orderi ng Physic geovani: BEN SANTILLAN Exam Date: 2022 10:08 AM Exam Name: MG DIAG BREAST JEMMA LT Admitt ing Diagno sis(es ): REASON FOR EXAM: Left breast mass with histor y of benign biopsy COMPAR JESSE: 04/09/20 22 TECHNI QUE:ML , cranio caudal and modifi ed mediol ateral obliqu e views of the left breast are obtain ed utiliz ing digita l mammog raphic images obtain ed using a mammog raphic system . 3-D imagin g with tomosy nthesi s combin ed with 2-D imagin g were acquir ed. All 4 quadra nts, subare olar region and axilla ry region of the left breast were evalua elma with ultras ound FINDIN GS: BREAST COMPOS ITION: The bilate ral breast s are almost entire ly fatty. There is a spicul ated hyperd ense mass in the left retroa reolar breast with associ ated skin thicke leroy. Biopsy marker clip is within this mass. Target ed ultras ound images of the breast demons trate a irregu lar hypoec hoic retroa reolar mass measur ing 2.9 x 2.1 cm in the left retroa reolar breast , increa sed in size compar ed to prior exam. There are abnorm al lymph nodes in the left axilla with gonzalo thicke candace cortex measur ing up to 1.4 cm. IMPRES YEE: 1. Irregu lar mass in the left retroa reolar breast with associ ated skin thicke leroy is highly sugges tive of malign malou. Althou gh this has been report ed to be previo usly biopsi ed with benign pathol ogy, recomm end repeat ultras ound-g uided biopsy or surgic al excisi on. 2. Abnorm al lymph nodes in the left axilla are highly sugges tive of malign malou. Recomm end ultras ound-g uided biopsy . Page 1 [facility] [address] [place] [address] [phone] Patien t Name: ERYN ESCOBAR Access ion #: [id number] Sex: M : 1949 1 Dictat ed By: Shira Head Attend ing Physic geovani: TYRELL [facility]AS [facility] Physic geovani: BEN SANTILLAN Exam Date: 2022 10:08 AM Exam Name: MG DIAG BREAST JEMMA LT Admitt ing Diagno sis(es ): Recomm end ultras ound-g uided biopsy or surgic al excisi on of left retroa reolar mass. Recomm end ultras ound-g uided biopsy of abnorm al lymph nodes in the left axilla . BIRADS : 5 - Highly Sugges tive of Malign malou Electr onical ly Signed by: Shira Head at 2022 11:02: 48 AM Page 2 [email or web address] [facility] (Imaging) [address] [place], [address], 07/01/2023 09:31:09 07/23/20 23 07/23/2023 MAMMO , diagn ostic , digit al, unila teral [facility] [address] [place] [address] Patien t Name: ERYN ESCOBAR Access ion #: [id number] Sex: M : 1949 5 Locati on: RAD Attend ing Physic geovani: BEN SANTILLAN Orderi ng Physic geovani: BEN SANTILLAN Exam Date: 2022 9:27 AM Exam Name: MG DIG SARAH BETH CLIP/N DL PLCMT LT Admitt ing Diagno sis(es ): MAMMOG MATTHEW REPORT - FINAL EXAM: MG DIG SARAH BETH CLIP/N DL PLCMT LT HISTOR Y: left clip placem ent 73 year-o ld male status post left breast biopsy COMPAR JESSE: Ultras ound images from jayda r same day; mammog linda dated 2022. TECHNI QUE: CC view of the left breast was perfor med post ultras ound-g uided biopsy . IMPRES YEE: Biopsy clip is approp riatel y locate d deep to the biopsi ed lesion in the left breast . Second biopsy clip is re-karissa ntifie d from previo us proced ure. Create d and electr onical ly signed by: Page 1 of 2 [facility] Patianna marie t Name: ERYN ESCOBAR Access ion #: [id number] Sex: M : 1949 5 Exam Date: 2022 9:27 AM Exam Name: DIG SARAH BETH CLIP/N DL PLCMT LT Admitt ing Diagno sis(es ): Addison roe MD Signed Date: 2022 10:21 AM (CT) Dictat ed by: Addison roe MD DD: 2022 10:21 AM (CT) DT: 2022 10:21 AM (CT) Page 2 of [address] (Imaging) [address] [place], [address], 01/16/2024 12:17:11 07/24/20 23 07/23/2023 BX lt breas t using devic e [facility] [address] [place] [address] Patien t Name: ERYN ESCOBAR Access ion #: [id number] Sex: M : 1949 5 Locati on: RAD Attend ing Physic geovani: BEN SANTILLAN Orderi ng Physic geovani: BEN SANTILLAN Exam Date: 2022 8:28 AM Exam Name: US BX BREAST LT USING DEVICE Admitt ing Diagno sis(es ): RADIOL OGY REPORT - FINAL EXAM: US BX BREAST LT USING DEVICE HISTOR Y: left breast biopsy 73-yea r-old male with left retroa reolar breast mass increa sing in size, new left axilla ry enlarg ed lymph node, histor y of left breast benign biopsy . COMPAR JESSE: Diagno stic mammog linda and left breast ultras ound dated 2022. TECHNI QUE: Mammog matthew and ultras ound of the left breast were review ed. EXPLAN ATION: The risks and benefi ts were discus sed with the patien t, includ ing risks of bleedi ng and infect ion. The patien t agreed to procee d and gave inform ed consen t. The skin of the left breast was marked , and the patien t agreed that the left breast was the correc t side. Time-o ut was perfor med. Page 1 of 3 [facility] Name: ERYN ESCOBAR Access ion #: [id number] Sex: M : 1949 5 Exam Date: 2022 8:28 AM Exam Name: US BX BREAST LT USING DEVICE Admitt ing Diagno sis(es ): PROCED URE: The skin of the left breast was prepar ed and draped steril noah with Betadi ne. 1% lidoca ine withou t epinep hrine was used to anesth etize the skin. The deeper tissue s were anesth etized with 1% lidoca ine with epinep hrine under ultras ound guidan ce. A small skin karissa was made with a #11 blade. The 13-gau ge Mammot ome biopsy device was advanc ed adjace nt to the lesion under ultras ound guidan ce. Four 13-gau ge biopsi es were obtain ed utiliz ing the vacuum -yasmine elma core biopsy device . Follow ing comple tion of the biopsi es, a small metall ic marker was placed at the biopsy site. The trocar was remove d. Pressu re was held over the biopsy site. The skin of the left axilla was prepar ed and draped steril noah with Betadi ne. 1% lidoca ine withou t epinep hrine was used to anesth etize the skin. A small skin karissa was made with a #11 blade. A 16 gauge [employer] core biopsy device trocar was advanc ed adjace nt to the lesion under ultras ound guidan ce. Four 18-gau ge 1 cm length biopsi es were obtain ed. The skin was cleans ed, and small bandag es were placed . The patien t tolera elma the proced ures well, and there were no immedi ate compli cation s. Multip le perman ent sonogr aphic images were obtain ed before and during the proced ure. IMPRES YEE: 1. Succes sful ultras ound-g uided vacuum -yasmine elma core biopsy of the left breast . 2. Succes sful ultras ound-g uided core biopsy of a left axilla ry enlarg ed lymph node. 3. Histop atholo gical analys is is melva bashir and electr onical ly signed by: Page 2 of 3 [facility] Name: ERYN ESCOBAR Access ion #: [id number] Sex: M : 1949 5 Exam Date: 2022 8:28 AM Exam Name: US BX BREAST LT USING DEVICE Admitt ing Diagno sis(es ): Addison roe MD Signed Date: 2022 8:09 AM (CT) Dictat ed by: Addison roe MD DD: 2022 8:09 AM (CT) DT: 2022 8:09 AM (CT) Page 3 of [address] (Imaging) [address] [place] [address], [address], 08/04/2023 11:29:01 Result Notes Documentation Provider Name and Address Organization Details Recorded Time Mammo, Diagnostic, Tomosynthesis, Unilateral : [facility] [address] [place] [address] Patient Name: ERYN ESCOBAR Sex: M : 1950 Dictated By: Shira Head Attending Physician: BEN SANTILLAN Ordering Physician: BEN SANTILLAN Exam Date: 06/27/2023 10:08 AM Exam Name: MG SWAN BREAST JEMMA LT Admitting Diagnosis(es): REASON FOR EXAM: Left breast mass with history of benign biopsy COMPARISON: 04/09/2022 TECHNIQUE:ML, craniocaudal and modified mediolateral oblique views of the left breast are obtained utilizing digital mammographic images obtained using a mammographic system. 3-D imaging with tomosynthesis combined with 2-D imaging were acquired. All 4 quadrants, subareolar region and axillary region of the left breast were evaluated with ultrasound FINDINGS: BREAST COMPOSITION: The bilateral breasts are almost entirely fatty. There is a spiculated hyperdense mass in the left retroareolar breast with associated skin thickening. Biopsy marker clip is within this mass. Targeted ultrasound images of the breast demonstrate a irregular hypoechoic retroareolar mass measuring 2.9 x 2.1 cm in the left retroareolar breast, increased in size compared to prior exam. There are abnormal lymph nodes in the left axilla with gonzalo thickened cortex measuring up to 1.4 cm. IMPRESSION: 1. Irregular mass in the left retroareolar breast with associated skin thickening is highly suggestive of malignancy. Although this has been reported to be previously biopsied with benign pathology, recommend repeat ultrasound-guided biopsy or surgical excision. 2. Abnormal lymph nodes in the left axilla are highly suggestive of malignancy. Recommend ultrasound-guided biopsy. Page 1 [facility] [address] [place] [address] Patient Name: ERYN ESCOBAR Sex: M : 1950 Dictated By: Shira Head Attending Physician: TYRELL CONTRERAS Ordering Physician: BEN SANTILLAN Exam Date: 06/27/2023 10:08 AM Exam Name: MG SWAN BREAST JEMMA LT Admitting Diagnosis(es): Recommend ultrasound-guided biopsy or surgical excision of left retroareolar mass. Recommend ultrasound-guided biopsy of abnormal lymph nodes in the left axilla. BIRADS: 5 - Highly Suggestive of Malignancy Page 2 J[facility] [address] [facility], [facility], [place], [address], [facility] [employer] [facility] 07/01/2023 09:31:09 Mammo, Diagnostic, Digital, Unilateral : [facility] [address] [place] [address] Patient Name: ERYN ESCOBAR Sex: M : 1950 Location: [facility] Attending Physician: BEN SANTILLAN Ordering Physician: BEN SANTILLAN Exam Date: 07/23/2023 9:27 AM Exam Name: MG HAINES SARAH BETH CLIP/NDL PLCMT LT Admitting Diagnosis(es): MAMMOGRAPHY REPORT - FINAL EXAM: DIG SARAH BETH CLIP/NDL PLCMT LT HISTORY: left clip placement 73 year-old male status post left breast biopsy COMPARISON: Ultrasound images from earlier same day; mammogram dated 06/27/2023. TECHNIQUE: CC view of the left breast was performed post ultrasound-guided biopsy. IMPRESSION: Biopsy clip is appropriately located deep to the biopsied lesion in the left breast. Second biopsy clip is re-identified from previous procedure. Created and electronically signed by: Page 1 of 2 [facility] Patient Name: ERYN ESCOBAR Sex: M : 1950 Exam Date: 07/23/2023 9:27 AM Exam Name: MG HAINES SARAH BETH CLIP/NDL PLCMT LT Admitting Diagnosis(es): Addison Lara MD Signed Date: 07/23/2023 10:21 AM (CT) Dictated by: Addison Lara MD (CT) (CT) Page 2 of 2 Rosalia Ibrahim MD [address], [facility], [place], [address], [place] [facility] [employer] [facility] 01/16/2024 12:17:11 Problems Name Problem SNOMED Code Status Onset Date Resolution Date Notes Provider Name and Address Organization Details Recorded Time Increased frequency of urination 767102511 Active Not Available [facility] 4 16:47:11 Insomnia 428559007 Active Not Available [facility] 4 16:47:11 Gastroesop hageal reflux disease 660469217 Active Not Available [facility] 4 16:47:11 Benign prostatic hyperplasi a 820625065 Active Not Available [employer] 4 16:47:11 Sleep disorder 60184349 Active Not Available [facility] 4 16:47:11 History of male erectile disorder 181220566 Active Not Available [facility] 4 16:47:11 Anxiety 91724225 Active Not Available [employer] 4 16:47:11 Coronary arterioscl erosis 78020012 Active Not Available [employer] 4 16:47:11 Neck pain 85229473 Active Not Available [employer] 4 16:47:11 Fatigue 08768896 Active Not Available [employer] 4 16:47:11 Nocturia 607731294 Active 2016 Not Available [facility] [facility] 4 16:47[facility]10 Myocardial infarction 04329400 Active 2016 Not Available [facility] 4 16:47:11 Depressive disorder 13418036 Active 2016 Not Available [facility] 4 16:47:11 History of polyp of colon 450011296 Active 2016 Not Available [facility] 4 16:47:11 Hyperlipid emia 82013793 Active 2016 Not Available [facility] 4 16:47:11 Bilateral hearing loss 98855102 Active 2019 Not Available [facility] 4 16:47:11 Basal cell carcinoma of skin 114851719 Active 2020 nose, schabu rg. Not Available [facility] 4 16:47:11 Irritable bowel syndrome with diarrhea 791005049 Active 2021 Not Available [facility] 4 16:47:11 Mass of left breast 3713975948679 9103 Active 2021 Not Available [facility] 4 16:47:10 Tremor 07166824 Active 2021 Not Available [facility] 4 16:47:11 History of cholecyste ctomy 685398694 Active 2021 Not Available [facility] 4 16:47:11 Chronic serous otitis media of left ear 185994595 Active 2022 Not Available [facility] 4 16:47:11 Prostate specific antigen above reference range 936639752 Active 2022 Not Available [facility] 4 16:47:11 Generalize d anxiety disorder 85249195 Active 2022 Not Available [facility] 4 16:47:11 Acute mastitis 19942214 Active 2022 Not Available [facility] 4 16:47:11 Cellulitis 115021124 Active 2022 Not Available [facility] 4 16:47:10 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 373683846 Active 2022 Not Available [facility] 4 16:47:11 Cellulitis of breast 35294953 Active 2022 Not Available [facility] 4 16:47:11 Diarrhea 98667404 Active 2022 Not Available [facility] 4 16:47:11 Oral herpes simplex infection 525594872 Active 2022 Not Available [facility] 4 16:47:11 Axillary lymphadeno lauren 303125984 Active 2022 Not Available [facility] 4 16:47:10 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 Not Available [facility] 4 16:47:11 Infiltrati ng duct carcinoma of breast 969554603 Active 2022 Not Available [facility] 4 16:47:11 Thoracic back pain 693685712 Active 2023 Yobani MooreJIGNA bashir-C [address], [place] [facility], [place], [address] , [employer] 4 11:50:48 Biopsy result abnormal 293929491 Active 2023 Yobani MooreJIGNA bashir-Tucker [address], [place] [address], [place], [address] , [employer] 4 11:56:30 COVID-19 693668520 Active 2023 Yobani MooreJIGNA bashir-C [address], [place] [address], [place], [address] , [employer] 4 20:50:57 Adverse reaction to drug 40962517 Active 2023 Rosalia Ibrahim MD [address], [place] [address], [place], [address] , [employer] 4 18:31:13 Problem Notes None recorded. Procedures Surgical History Date Name Laterality Status Provider Name and Address Organization Details Recorded Time 01/03/20 21 colonoscopy completed Not Available [facility] 11/06/2022 03:18:52 06/29/20 18 colonoscopy completed Not Available [facility] 11/06/2022 03:18:52 Prostate completed Not Available [facility] 11/06/2022 03:18:52 operation on heart valve completed Not Available [facility] 11/06/2022 03:18:52 cholecystectomy completed Not Available [facility] 11/06/2022 03:18:52 Imaging Results None recorded. Procedure Notes None recorded. Medical Equipment None Reported. Allergies Allergen ID Allergen Name Allergen Category Reaction Reaction Severity Criticality Documentation Date Start Date Code Code System Note Provider Name and Address Organization Details Recorded Time 6345 Substance with sulfonami de structure and antibacte rial mechanism of action (substanc e) medicatio n rash Not available Not available 11/06/2022 83495 8003 SNOMED Not Available [facility] 3 03:35:30 6346 simvastat in medicatio n arthralgi a (joint pain) Not available Not available 11/06/2022 37698 RxNorm Not Available [facility] 3 03:35:30 6347 cefdinir medicatio n rash Not available Not available 11/06/2022 14057 RxNorm oral canke r sores Not Available [facility] 3 03:35:30 6348 Belsomra medicatio n other Not available Not available 11/06/2022 47463 05 RxNorm PT STATE S CAUSE D PROST ATE ISSUE S Not Available [facility] 3 03:35:30 Medications Name Sig Start Date Stop Date Status Note LastModified by Organization Details LastModified Time diphenhyd ramine 12.5 mg/5 ml active Not Available Not Available Not Available Flomax 0.4 mg capsule Take 1 capsule every day by oral route in the morning for 90 days. 10/12 completed Not Available Not Available Not Available atorvasta tin 40 mg tablet TAKE 1 TABLET BY MOUTH ONCE DAILY active Not Available Not Available No t Available prednison e 10 mg tablet TAKE 1 TABLET BY MOUTH TWICE DAILY active Not Available Not Available No t Available doxycycli ne hyclate 100 mg capsule TAKE 1 CAPSULE BY MOUTH TWICE DAILY active Not Available Not Available No t Available tretinoin 0.01 % topical gel APPLY A PEA-SIZE D AMOUNT TO FACE NIGHTLY active Not Available Not Available No t Available clindamyc in HCl 300 mg capsule TAKE 1 CAPSULE BY MOUTH EVERY 6 HOURS UNTIL GONE active Not Available Not Available No t Available Vitamin C 500 mg tablet 1 TAB DAILY 12/03 completed otc Not Available Not Available Not Available trazodone 50 mg tablet TAKE 1 TABLET BY MOUTH ONCE DAILY AT BEDTIME active Not Available Not Available No t Available ibuprofen 800 mg tablet TAKE 1 TABLET BY MOUTH EVERY 6 HOURS active Not Available Not Available No t Available tizanidin e 4 mg tablet TAKE 1 TABLET BY MOUTH EVERY 6 HOURS NEEDED active Not Available Not Available No t Available ampicilli n 500 mg capsule Take 1 capsule 3 times a day by oral route for 5 days. active Not Available Not Available No t Available valacyclo vir 1 gram tablet 12/03 completed Not Available Not Available Not Available hydrocodo ne 5 mg-acetam inophen 325 mg tablet 10/12 completed Not Available Not Available Not Available prednison e 20 mg tablet TAKE 2 TABLETS BY MOUTH ONCE DAILY FOR 5 DAYS 05/29 completed Not Available Not Available Not Available Viagra 50 mg tablet Take 1 tablet every day by oral route. 2012 active Not Available Not Available Not Avai lable penicilli n V potassium 500 mg tablet TAKE 1 TABLET BY MOUTH 4 TIMES DAILY UNTIL GONE active Not Available Not Available No t Available valacyclo vir 500 mg tablet Take 1 tablet every day by oral route for 30 days. 07/26 completed Not Available Not Available Not Available ciproflox acin 500 mg tablet Take 1 tablet every 12 hours by oral route for 5 days. 05/26 completed Not Available Not Available Not Available Tamiflu 75 mg capsule Take 1 capsule twice a day by oral route for 5 days. 11/13 completed Not Available Not Available Not Available peg-elect rolyte solution 420 gram oral solution 11/13 completed Not Available Not Available Not Available tramadol 50 mg tablet TAKE 1 TO 2 TABLETS BY MOUTH EVERY 6 HOURS NEEDED FOR PAIN . DO NOT EXCEED 5 PER 24 HOURS active Not Available Not Available No t Available triamcino lone acetonide 0.1 % topical cream APPLY A THIN LAYER TO THE AFFECTED AREA(S) BY TOPICAL ROUTE 2 TIMES PER DAY 07/23 completed Not Available Not Available Not Available simvastat in 40 mg tablet TAKE ONE TABLET BY MOUTH ONCE DAILY 04/03 completed caused joint pain in knees and shoulder s Not Available Not Available Not Available carvedilo l 3.125 mg tablet Take 1 tablet twice a day by oral route. 10/[address] Jaimes , Cardiolo gy Not Available Not Available Not Available Mobic 15 mg tablet Take 1 tablet every day by oral route in the morning for 30 days. 06/18 completed Not Available Not Available Not Available alprazola m 0.5 mg tablet Take 1/2 (one-luisa f) tablet by mouth twice daily 01/28 completed Not Available Not Available Not Available propranol ol 10 mg tablet TAKE 1 TABLET BY MOUTH TWICE DAILY 02/11 completed Not Available Not Available Not Available amoxicill in 875 mg tablet TAKE 1 TABLET BY MOUTH TWICE DAILY FOR 10 DAYS 12/03 completed Not Available Not Available Not Available alprazola m 0.25 mg tablet TAKE 1 TABLET BY MOUTH TWICE DAILY NEEDED FOR ANXIETY active Not Available Not Available No t Available trazodone 100 mg tablet TAKE 1 TABLET BY MOUTH AT BEDTIME active Not Available Not Available No t Available dicyclomi ne 20 mg tablet TAKE 1 TABLET BY MOUTH 4 TIMES DAILY 01/17 completed Not Available Not Available Not Available temazepam 30 mg capsule TAKE 1 CAPSULE BY MOUTH NIGHTLY NEEDED FOR SLEEP active Not Available Not Available No t Available Kenalog 10 mg/mL suspensio n for injection In office injectio n administ ered by the provider 04/17 completed NDC: [phone] - Not Available Not Available Not Available meclizine 25 mg tablet TAKE 1 TABLET BY MOUTH THREE TIMES DAILY NEEDED FOR DIZZINES S FOR 2 DAYS 02/11 completed Not Available Not Available Not Available saw palmetto 160 mg capsule Take by oral route. 06/13 completed otc, prostate Not Available Not Available Not Available phenazopy ridine 100 mg tablet 11/13 completed Not Available Not Available Not Available pantopraz ole 40 mg tablet,de layed release TAKE ONE TABLET BY MOUTH ONCE DAILY DIRECTED 04/18 completed Not Available Not Available Not Available trazodone 150 mg tablet TAKE 1 TABLET BY MOUTH ONCE DAILY AT BEDTIME active Not Available Not Available No t Available buspirone 10 mg tablet TAKE 1 TABLET BY MOUTH TWICE DAILY 08/13 completed Not Available Not Available Not Available lisinopri l 10 mg tablet TAKE 1 TABLET BY MOUTH ONCE DAILY WHEN STARTING THIS MEDICATI ON TAKE ONE HALF TAB DAILY FOR A WEEK THEN GO TO A FULL TABLET DAILY 04/18 completed Not Available Not Available Not Available promethaz ine 25 mg tablet Take 1 tablet every 4 hours by oral route as needed. 05/26 completed Not Available Not Available Not Available zinc 25 mg tablet Take 1 tablet every day by oral route. 2023 active Not Available Not Available Not Avai lable losartan 25 mg tablet TAKE 1 TABLET BY MOUTH ONCE DAILY active Not Available Not Available No t Available nystatin- triamcino lone 100,000 unit/g-0. 1 % topical cream APPLY TO THE AFFECTED AREA(S) BY TOPICAL ROUTE 2 TIMES PER DAY IN THEMORNI NG AND EVENING 05/26 completed Not Available Not Available Not Available gabapenti n 300 mg capsule TAKE 1 CAPSULE BY MOUTH TWICE DAILY active Not Available Not Available No t Available omeprazol e 20 mg capsule,d elayed release Take 1 capsule every day by oral route. 12/03 completed using otc Not Available Not Available Not Available aspirin 81 mg chewable tablet Chew 1 tablet every day by oral route. 12/03 completed OTC Not Available Not Available Not Available hydrocort isone 2.5 % topical cream APPLY TO AFFECTED AREAS OF FACE TWICE DAILY NEEDED. active Not Available Not Available No t Available magnesium 250 mg tablet Take by oral route. 06/13 completed Not Available Not Available Not Available levofloxa richard 750 mg tablet Take 1 tablet every day by oral route for 7 days. 11/13 completed Not Available Not Available Not Available letrozole 2.5 mg tablet TAKE 1 TABLET BY MOUTH ONCE DAILY active Not Available Not Available No t Available zolpidem 10 mg tablet TAKE 1 TABLET BY MOUTH ONCE DAILY AT BEDTIME active Not Available Not Available No t Available methylpre dnisolone 4 mg tablets in a dose pack Take 1 dose pk by oral route. 02/11 completed Not Available Not Available Not Available propranol ol 20 mg tablet TAKE 1 TABLET BY MOUTH TWICE DAILY 02/11 completed Not Available Not Available Not Available ketoconaz ole 2 % topical cream APPLY TOPICALL Y TO AFFECTED AREA(S) OF EYEBROWS ONCE TO TWICE DAILY NEEDED 12/03 completed Not Available Not Available Not Available cefdinir 300 mg capsule TAKE 1 CAPSULE BY MOUTH EVERY 12 HOURS FOR 10 DAYS 12/03 completed Not Available Not Available Not Available fluticaso ne propionat e 50 mcg/actua tion nasal spray,treasure pension Napanoch 1 spray every day by intranas al route. 12/03 completed Not Available Not Available Not Available sertralin e 50 mg tablet TAKE 1 TABLET BY MOUTH ONCE DAILY active Not Available Not Available No t Available finasteri de 5 mg tablet TAKE 1 TABLET BY MOUTH ONCE DAILY active Not Available Not Available No t Available Bactroban Nasal 2 % ointment Use on rash around nose bid for 1 week. 11/13 completed Not Available Not Available Not Available amoxicill in 500 mg-potass ium clavulana te 125 mg tablet TAKE 1 TABLET BY MOUTH EVERY 8 HOURS active Not Available Not Available No t Available oxycodone 5 mg tablet 11/13 completed Not Available Not Available Not Available bee pollen 500 mg capsule Take 2 capsules every day by oral route. 06/13 completed otc- Prostate Not Available Not Available Not Available escitalop linda 10 mg tablet TAKE 1 TABLET BY MOUTH ONCE DAILY AT BEDTIME 10/17 completed Not Available Not Available Not Available escitalop linda 20 mg tablet TAKE 1 TABLET BY MOUTH ONCE DAILY 02/11 completed Not Available Not Available Not Available ezetimibe 10 mg tablet TAKE 1 TABLET BY MOUTH ONCE DAILY active Not Available Not Available No t Available Avodart 0.5 mg capsule Take 1 capsule every day by oral route as directed for 30 days. active Not Available Not Available No t Available cyclobenz aprine 5 mg tablet Take 1 tablet every day by oral route at bedtime for 30 days. 06/18 completed Not Available Not Available Not Available ciproflox acin 0.3 %-dexamet hasone 0.1 % ear drops,treasure pension INSTILL 4 DROPS INTO LEFT EAR TWICE DAILY FOR 7 DAYS 02/11 completed Not Available Not Available Not Available cholestyr amine (with sugar) 4 gram powder for susp in a packet DISSOLVE 4 GRAMS IN 8 OZ OF WATER AND DRINK TWICE DAILY AND ADMINIST ER WITH FOOD. AVOID OTHER MEDS WITHIN 1 HOUR BEFORE OR 4-6 HOURS AFTER DOSE 02/11 completed Not Available Not Available Not Available rosuvasta tin 40 mg tablet TAKE 1 TABLET BY MOUTH ONCE DAILY 04/18 completed Not Available Not Available Not Available bupropion HCl XL 150 mg 24 hr tablet, extended release TAKE 1 TABLET BY MOUTH DAILY active Not Available Not Available No t Available Cialis 20 mg tablet Take 0.25 tablets every day by oral route. 06/30 completed prostate . BPH. Getting off internet - loree Not Available Not Available Not Available metoprolo l tartrate 25 mg tablet TAKE 1 TABLET BY MOUTH TWICE DAILY active Not Available Not Available No t Available acamprosa te 333 mg tablet,de layed release TAKE 2 TABLETS BY MOUTH THREE TIMES DAILY active Not Available Not Available No t Available Lunesta 2 mg tablet Take 1 tablet every day by oral route at bedtime for 30 days. active Not Available Not Available No t Available fluocinol one 0.01 % scalp oil and shower cap APPLY TO AFFECTED AREAS TWICE DAILY AROUND EYEBROWS . RUB IN AND DO NOT RINSE. active Not Available Not Available No t Available metronida zole 1 % topical gel APPLY BY TOPICAL ROUTE TO FACE TWICE DAILY active Not Available Not Available No t Available chlorhexi dine gluconate 0.12 % mouthwash SWISH AND SPIT 15 ML (1 2 OZ) IN MOUTH TWICE DAILY FOR 30 SECONDS 04/17 completed Not Available Not Available Not Available aspirin active Not Available Not Avail able Not Available zinc 25MG 1 TAB DAILY 12/03 completed otc Not Available Not Available Not Available omeprazol e active Not Available Not Available Not Available enalapril maleate 2.5 MG 1 DAILY 05/20 completed Not Available Not Available Not Available Calcium 500 1 PO QD 06/13 completed Internal note: otcExter nal note: PT. IS TAKING MAG WITH CALCIUM 800MG 1 TAB DAILY Not Available Not Available Not Available Hydrocodo ne 03/26 completed Not Available Not Available Not Available tadalafil active 5mg Not Available Not Ana Lilia ilable Not Available mometason e 0.1 % topical solution APPLY TO AFFECTED AREA(S) OF EYEBROWS ONCE TO TWICE DAILY NEEDED. RUB IN, DO NOT RINSE 12/03 completed Not Available Not Available Not Available lidocaine (PF) 10 mg/mL (1 %) injection solution In office injectio n administ ered by the provider 04/[address] [facility]: [phone] 6- Not Available Not Available Not Available Fish Oil 1,000 mg capsule 2012 active Not Available Not Available Not Avai lable ticagrelo r 90 mg tablet Take 1 tablet twice a day by oral route. 10/[address] Jaimes , Cardiolo gy (Brilint a) 60 mg Not Available Not Available Not Available quercetin dihydrate (bulk) 500MG DAILY 06/13 completed allergie s and helps prostate Not Available Not Available Not Available PreviDent 5000 Booster Plus 1.1 % dental paste APPLY 1 DROP TO THE TEETH DIRECTED active Not Available Not Available No t Available ascorbic acid (vitamin C) 500 mg capsule Take 1 capsule every day by oral route before meal(s). 2023 active Not Available Not Available Not Avai lable Belsomra 10 mg tablet TAKE ONE TABLET BY MOUTH AT BEDTIME active Not Available Not Available No t Available Brilinta 60 mg tablet TAKE 1 TABLET BY MOUTH TWICE DAILY 04/17 completed Not Available Not Available Not Available Viberzi 100 mg tablet Take as needed for abx-jenny allen diarrhea 08/08 completed Not Available Not Available Not Available Viberzi 75 mg tablet 01/17 completed fax confirma tion Not Available Not Available Not Available Shingrix (PF) 50 mcg/0.5 mL intramusc ular suspensio n, kit PHARMACI ST ADMINIST ERED IMMUNIZA TION ADMINIST ERED AT TIME OF DISPENSI NG 10/12 completed Not Available Not Available Not Available Afluria Qd 2019- (36 mos up)(PF)60 mcg (15 mcg x4)/0.5 mL IM syringe ADM 0.5ML IM UTD 10/12 completed Not Available Not Available Not Available Fluzone High-Dose Quad 2019- (PF) 240 mcg/0.7 mL IM syringe PHARMACI ST ADMINIST ERED IMMUNIZA TION ADMINIST ERED AT TIME OF DISPENSI NG 06/13 completed Not Available Not Available Not Available BinaxNOW COVID-19 Ag Self Test kit Use as Directed on the Package 08/13 completed Not Available Not Available Not Available Vitals Date Recorded Body height Body mass index (BMI) Body weight Body temperature Oxygen saturation Oxygen saturation in Arterial blood by Pulse oximetry Heart rate Systolic And Diastolic Provider Name and Address Organization Details Last Updated DateTime 4 187.96 cm 29.3 kg/m2 777870. 06 g 97.3 [degF] 96 % 96 % 81 /min 134/80 mm[Hg] Shi Caban RN [place] [facility] 4 11:38:59 Date Recorded Body height Body mass index (BMI) Body weight Body temperature Heart rate Oxygen saturation Oxygen saturation in Arterial blood by Pulse oximetry Systolic And Diastolic Provider Name and Address Organization Details Last Updated DateTime 3 190.5 cm 26.7 kg/m2 00932.7 7 g 98.6 [degF] 103 /min 95 % 95 % 138/70 mm[Hg] Unique Mckeon RN [facility] [employer] [facility] 3 15:28:29 Date Recorded Body height Body mass index (BMI) Body weight Body temperature Heart rate Oxygen saturation Oxygen saturation in Arterial blood by Pulse oximetry Systolic And Diastolic Provider Name and Address Organization Details Last Updated DateTime 3 190.5 cm 26.5 kg/m2 60586.5 8 g 99.5 [degF] 103 /min 94 % 94 % 124/68 mm[Hg] Unique Mckeon RN [facility] [employer] [facility] 3 14:19:11 Date Recorded Body height Body mass index (BMI) Body weight Body temperature Heart rate Oxygen saturation Oxygen saturation in Arterial blood by Pulse oximetry Systolic And Diastolic Provider Name and Address Organization Details Last Updated DateTime 3 190.5 cm 26 kg/m2 40400.2 1 g 99.1 [degF] 80 /min 94 % 94 % 136/76 mm[Hg] Alia Guajardo CNA [facility] [employer] [facility] 3 14:26:22 Social History Question Answer Notes LastModified by Organizat ion Details LastModified Time Tobacco Smoking Status Never Smoker Not Available [facility] 11/06/2022 03:14:39 Do You Have An Advance Directive? Yes [id number] Information not available 11/06/2022 Are You Blind Or Do You Have Difficulty Seeing? No [id number] Information not available 11/06/2022 What Is Your Level Of Caffeine Consumption? None MIGRATION.10350 [id number] Information not available 11/06/2022 What Is Your Code Status? DNR [id number] Information not available 11/06/2022 In The 14 Days Before Symptom Onset, Have You Had Close Contact With A Laboratory-confir med COVID-19 While That Case Was Ill? No [id number] Information not available 11/06/2022 In The 14 Days Before Symptom Onset, Have You Had Close Contact With A Person Who Is Under Investigation For COVID-19 While That Person Was Ill? No [id number] Information not available 11/06/2022 Are You Deaf Or Do You Have Serious Difficulty Hearing? No MIGRATION.31535 01682 Information not available 11/06/2022 What Type Of Diet Are You Following? REGULAR MIGRATION.87118 32046 Information not available 11/06/2022 What Is The Highest Grade Or Level Of School You Have Completed Or The Highest Degree You Have Received? [id number] MIGRATION.15282 [id number] Information not available 11/06/2022 Have There Been Any Changes To Your Family Or Social Situation? No MIGRATION.57007 [id number] Information not available 11/06/2022 Do You Use Insect Repellent Routinely? No MIGRATION.70251 15166 Information not available 11/06/2022 Where Do You Live? [place]House MIGRATION.91100 08348 Information not available 11/06/2022 Do You Have A Medical Power Of Plate Worker? Yes MIGRATION.12117 24001 Information not available 11/06/2022 What Was The Date Of Your Most Recent Tobacco Screening? 04/03/2021 MIGRATION.49521 14066 Information not available 11/06/2022 Do You Have Any Pets? Yes MIGRATION.53425 20587 Information not available 11/06/2022 What Is Your Relationship Status? MIGRATION.57767 95401 Information not available 11/06/2022 Do You Use Your Seat Belt Or Car Seat Routinely? Yes MIGRATION.71375 82301 Information not available 11/06/2022 Do You Have Smoke And Carbon Monoxide Detectors In Your Home? Yes MIGRATION.84619 [id number] Information not available 11/06/2022 Are You Passively Exposed To Smoke? No MIGRATION.03729 56934 Information not available 11/06/2022 Are There Any Smokers In Your House? No MIGRATION.85287 14728 Information not available 11/06/2022 Do You Participate In Social Media? No MIGRATION.66501 01727 Information not available 11/06/2022 Do You Use Sunscreen Routinely? No MIGRATION.89385 65788 Information not available 11/06/2022 Have You Recently Traveled Abroad? No MIGRATION.14418 58211 Information not available 11/06/2022 Do You Have Difficulty Walking Or Climbing Stairs? No MIGRATION.45771 19809 Information not available 11/06/2022 Are You Currently In School? No MIGRATION.02632 87183 Information not available 11/06/2022 Do You Have Any Dietary Restrictions? No MIGRATION.94843 14006 Information not available 11/06/2022 Sex: Male Functional Status Question Answer Note LastModified by Organizat ion Details LastModified Time What is your level of alcohol consumption? Heavy [email or web address] Information not available 05/22/2023 Do you have transportation difficulties? No MIGRATION.[id number] 026 Information not available 11/06/2022 Are you able to walk independently without assistance or assistive devices? YESWOREST [id number].[id number] 026 Information not available 11/06/2022 Do you have difficulty doing errands alone? No MIGRATION.[id number] 026 Information not available 11/06/2022 Are you able to care for yourself independently? Yes MIGRATION.[id number] 026 Information not available 11/06/2022 What is your occupation? RETIRED MIGRATION.[id number] 026 Information not available 11/06/2022 Do you have difficulty dressing, bathing, grooming, or toileting? Yes MIGRATION.[id number] 026 Information not available 11/06/2022 What is your exercise level? Occasional MIGRATION.[id number] 026 Information not available 11/06/2022 Mental Status Question Answer Note LastModified by Organizat ion Details LastModified Time Do you feel stressed (tense, restless, nervous, or anxious, or unable to sleep at night)? [id number] MIGRATION.[id number] 26 Information not available 11/06/2022 Do you have difficulty concentrating, remembering or making decisions? No [id number] 26 Information not available 11/06/2022 Family History Relationship Description Onset Age of this Age Resolved Age Notes LastModified by Organization Details LastModified Time Sister Family history of malignant neoplasm [id number] Not available 11/06/2022 03:18:58 Father Heart disease [id number] Not available 11/06/2022 03:18:58 Brother Heart disease [id number] Not available 11/06/2022 03:18:58 Medical History Condition Response BLINDNESS N RHEUMATIC FEVER N KIDNEY STONES N BLADDER PROBLEMS N MRSA N OTHER # 1 N POLIO N LUNG DISEASE/DISORDER N HISTORY OF DRUG ABUSE N RADIATION / CHEMOTHERAPY N COPD N Other # 2 N BLOOD DISEASES N SURGERY N EAR OR HEARING PROBLEMS N MUMPS N SHINGLES N BOWEL PROBLEMS N FEMALE PROBLEMS / INFECTIONS N DEPRESSION (INCLUDING POST ) N STROKE/TIA N THYROID DISEASE N ULCERS N BENIGN PROSTATIC HYPERPLASIA N MEASLES N CERVICALGIA N HYPOTENSION N TB SKIN TEST N MYOCARDIAL INFARCTION N PARAPELGIA N OBESITY N GERD/NAUSEA N ANEURYSM N URINARY/BLADDER/KIDNEY PROBLEMS N CORONARY ARTERY DISEASE (CAD) N MENIERE'S DISEASE N ADDICTION CONCERNS N ENDOMETRIOSIS N USE OF BLOOD THINNERS N SKIN PROBLEMS N EMPHYSEMA N GASTROINTESTINAL DISORDER N MUSCLE,JOINT OR BONE PROBLEMS N GASTROINTESTINAL BLEEDING N BLOOD CLOTS N ASTHMA N CATARACTS N ERECTILE DYSFUNCTION N GI PROBLEMS N CHF N Low Testosterone N NEUROPATHY N INFERTILITY N AIDS/HIV N FRACTURES N CHEMOTHERAPY / RADIATION N VISION/EYE PROBLEMS N LIVER DISEASE N MALE HYPOGONADISM N HYPERTENSION N TOURETTE'S N ANXIETY DISORDER N BLOOD TRANSFUSION N ANEMIA/BLOOD DISORDER N CHRONIC EAR INFECTIONS N BRONCHITIS N TUBERCULOSIS N GLAUCOMA N FOOT PROBLEM N DIVERTICULITIS N CHICKENPOX N SLEEP APNEA N ALLERGIES/HAYFEVER N INFECTIOUS DISEASE N HEART ARRHYTHMIA N PROSTATE N INSOMNIA N HIGH CHOLESTEROL / HYPERLIPIDEMIA N HYPERTHYROIDISM N EYE PROBLEMS N EATING DISORDER N EDEMA N CHRONIC PAIN SYNDROME N CONSTIPATION N CAROTID BLOCKAGE N BACK / NECK PROBLEMS N HAVE YOU BEEN HOSPITALIZED OR SEEN IN [facility] IN THE PAST YEAR ? N ATHEROSCLEROSIS N BREAST PROBLEMS N DIALYSIS N ECZEMA N FIBROMYALGIA N OSTEOPOROSIS N ARTHRITIS N NO SIGNIFICANT PAST MEDICAL HISTORY N APPENDICITIS N DIABETES, TYPE N BAD TEETH N HEARTBURN / REFLUX N ADD/ADHD N AUTISM SPECTRUM DISORDER (ASD) N HEPATITIS / LIVER DISEASE N PULMONARY DISEASE N GOUT N SLEEP DISORDER N ALZHEIMER'S DISEASE N PAIN N HERPES N DEMENTIA N HEADACHES/MIGRAINES N SEIZURES/EPILEPSY N VASCULAR DISEASE N PACEMAKER N DIZZINESS N HEART DISEASE/HEART PROBLEMS N KIDNEY DISEASE N DEVELOPMENTAL OR BEHAVIORAL DISORDERS N MULTIPLE SCLEROSIS N SCARLET FEVER N MENTAL DISORDER/ILLNESS N CARDIAC ARRHYTHMIA N CANCER: SPECIFY N PNEUMONIA N ATRIAL FIBRILLATION N Gall Stones N PULMONARY EMBOLISM N AUTOIMMUNE DISEASE N Immunizations Vaccine Type Date Status Note Provider Nam e and Address Organization Details Recorded Time COVID-19, mRNA, LNP-S, PF, 30 mcg/0.3 mL dose 2 completed Not Available [facility] 09/12/2023 16:47:11 zoster live 9 completed Not Available [facility] 09/12/2023 16:47:11 Influenza, split virus, quadrivalent, preservative 6 completed Not Available [facility] 09/12/2023 16:47:11 Influenza, high-dose, quadrivalent, PF 1 completed Not Available [facility] 09/12/2023 16:47:11 Influenza, high-dose, quadrivalent, PF 0 completed Not Available [facility] 09/12/2023 16:47:11 Influenza, split virus, quadrivalent, preservative 9 completed Not Available [facility] 09/12/2023 16:47:11 Influenza, split virus, quadrivalent, preservative 7 completed Not Available [facility] 09/12/2023 16:47:11 Tdap 7 completed Not Available [facility] 09/12/2023 16:47:11 Influenza, split virus, trivalent, preservative 5 completed Not Available [facility] 09/12/2023 16:47:12 Influenza, split virus, trivalent, preservative 4 completed Not Available [facility] 09/12/2023 16:47:12 Influenza, split virus, trivalent, preservative 3 completed Not Available [facility] 09/12/2023 16:47:12 Influenza, split virus, trivalent, preservative 2 completed Not Available [facility] 09/12/2023 16:47:12 zoster live 2 completed Not Available [facility] 09/12/2023 16:47:11 Influenza, high-dose, trivalent, PF 8 completed Not Available [facility] 09/12/2023 16:47:11 pneumococcal polysaccharide PPV23 8 completed Not Available [facility] 09/12/2023 16:47:11 Pneumococcal conjugate PCV 13 7 completed Not Available [facility] 09/12/2023 16:47:11 Td (adult), 2 Lf tetanus toxoid, preservative free, adsorbed 7 completed Not Available [facility] 09/12/2023 16:47:12 Past Encounters Encounter ID Performer Location Encounter Start Date Encounter Closed Date Diagnosis/Indication Diagnosis SNOMED-CT Code Diagnosis ICD10 Code Diagnosis IMO Codes Diagnosis Note [id number] Oscar Aquino MD [facility] [place] [address] [place] [address] 04/03/2021 00:00:00 04/03/2021 13:14:50 [id number] Zurdo Thapa MD [facility] [address] [place] [address] 04/18/2021 00:00:00 04/18/2021 12:23:09 [id number] Zurdo Thapa MD [facility] [address] [facility] [place] [address] 07/18/2021 00:00:00 07/18/2021 18:32:08 [id number] Zurdo Thapa MD [facility] [address] [place], [place] [address] [place] [address] 10/17/2021 00:00:00 10/17/2021 14:55:33 [id number] Zurdo Thapa MD [facility] [address] [place], [place] [address] [place] [address] 01/17/2022 00:00:00 01/17/2022 10:50:45 [id number] Luc[facility] Kenyon [facility] [address] [place] [address] 03/26/2022 00:00:00 03/26/2022 08:56:29 [id number] [facility] [address] [place] [address] 04/10/2022 00:00:00 04/10/2022 15:39:32 [id number] Zurdo Thapa MD [facility] [address] [place] [address] [place] [address] 08/13/2022 00:00:00 08/13/2022 11:24:34 [id number] Robby Oliver MD [facility] [place] [address] [place] [address] 10/15/2022 00:00:00 10/15/2022 12:43:25 [id number] Lucero Kenyon NP [facility] [address] [place] [address] 02/11/2023 13:54:21 02/11/2023 14:51:04 Hyperlipidemia 15666290 E78.5 Atorvastat in 40 mg po nightly. Anxiety 54201432 F41.9 Alprazolam 0.25 mg po bid prn. Declined pt request to increase dose and frequency. States he uses for sleep, so started on trazodone 50 mg.UDS 02/11/23 Lexapro caused diarrhea. Insomnia 500078050 G47.0 0 Trazodone 50 mg po nightly.Zo lpidem 50 mg po nightly. History of cholecystectomy 542974425 Z90.49 no longer on cholestera mine powder. Tremor 27892077 R25.1 tried and failed propranolo l, made it worse. Apr 09, 2023 is next appt. Pt to look into primidone. Gastroesop hageal reflux disease 975011162 K21.9 Stable. On Omeprazole otc. Benign pro static hyperplasia 583768904 N40.0 Cialis 5 mg po daily. Seeing urology. Prostate s pecific antigen above reference range 545917695 R97.20 PSA high per urology. Screening for malignant neoplasm of colon 239269418 Z12.11 01/02/21 last, fu in 3 years for colon poly. [id number] Rosalia Ibrahim MD [facility] [address] [facility] [address] [place] [address] 05/22/2023 15:16:22 05/22/2023 16:41:23 Mass of left breast [id number] N63.20 Acute over chronicMam mogram (04/09/22); Bx (04/25/22) was negativeWi ll start on abx and steroids to address apparent cellulitis /mastitis. Will refer back for repeat imaging. Insomnia 338542146 G47.0 0 Chronic, stable with zolpidemEn couraged good sleep hygiene.Pt aware of risk for misuse/abu se. Takes only as prescribed . [id number] Rosalia Ibrahim MD [facility] [address] [facility] [address] [place] [address] 06/12/2023 14:11:25 06/12/2023 17:42:42 Mass of left breast [id number] N63.20 Acute over chronicMam mogram (04/09/22); Bx (04/25/22) was negativeSo me improvemen t with 10-day course of abx, but not resolved. Will resume doxycyclin e 100mg BID x 30 days pending updated imaging (scheduled for 06/27/23). Will swab for MRSA Cellulitis of breast [id number] 51748 N61.0 Left breast/pec toralNo appreciabl e improvemen t since last visit; however, pt reports there was some improvemen t while taking abx.In light of pt reporting past hx of MRSA infection, will swab open area on left nipple and send for culture.Re sume doxycyclin e 100mg BID for 30 days, unless imaging indicates other pathology. [id number] Rosalia Ibrahim MD [facility] [address] [facility] [address] [place] [address] 06/26/2023 14:17:05 06/26/2023 14:51:10 Diarrhea 77952296 R19.7 AcuteDiarr hea improved once the antibiotic course was finished; starting to regain weight. No longer having issues and stool has returned to normal. Recommend OTC probiotic to help replenish normal ramana. Mass of left breast [id number] N63.20 Acute over chronicMam mogram (04/09/22); Bx (04/25/22) was negativeNe xt mammogram scheduled 06/27/23Im provement to inflammati on to the skin with previous use of doxycyclin e.Had extreme diarrhea with doxycyclin e and took Eluxadolin e/viberzi which helped. Was advised to stop taking doxycyclin e due to weight loss. Will recommend resuming the doxycyclin e and given sample tablets of viberzi. Oral herpe s simplex infection 605147561 B00.2 AcuteWorse candace by the use of doxycyclin e. Has tried OTC medication s without effect. Will prescribe oral antiviral to be used for one month until complete with the prescripti on of doxycyclin e. [id number] JULIETA Humphreys [facility] [address] [facility] [address] [place] [address] 09/18/2023 11:29:35 09/18/2023 12:11:01 Generalized anxiety disorder [id number] F41.1 -chronic, stable-use s alprazolam BID-twyla pal referral for counseling /therapy at this time-UDS up to date-refil l given Thoracic back pain [id number] M54.6 -recently had unbearable back pain-was bad enough that he had to go to the ER one day but didn't want to wait to be seen-took ibuprofen for 2 days and the issue is now easier to deal with-feels likes a knot under his left shoulder-w ill trial tizanidine Biopsy res ult abnormal [id number] R89.7 -recently had left breast biopsy-abn ormal-bone biopsy scheduled for next week-prost ate biopsy this week-eric l [id number] JIGNA Humphreys-Tucker [facility] [address] [facility] [address] [place] [address] 02/19/2024 14:28:49 02/19/2024 14:42:[id number] [facility] [address] [address] 05/05/2024 13:39:14 05/05/2024 15:42:[id number] [facility] [address] [address] 06/09/2024 14:24:36 06/09/2024 17:21:39 Health Concerns Section Related Observation LastModified by Organization Detai ls LastModified Time None Recorded Concern Status LastModified by Organization Details LastModified Time None Recorded Advance Directives Directive Y: Payers Insurance Date Sequence Insurance Name Policy Number Policy Camacho Covered Member ID Camacho Member ID Guarantor Name 05/30/2024 1 [place] Eryn Turcios Escobar [id number] Eryn Turcios Escobar 06/07/2024 2 [facility] [id number] Eryn Turcios Escobar [id number] Eryn Turcios Escobar 05/30/2024 [employer] ASSIGNED (MEDICARE DME REGION B) Eryn Turcios Escobar [id number] Eryn Turcios Escobar Notes Date Note Type Note Provider Name and Address Organization Details Recorded Time 05/22/2023 text/html 1. Pt in office for problem visit with c/o having lump in left breast. States it's been there for awhile (imaging results indicate problem is from 04/2022). Pt states it's now sore and is getting bigger. States there is a scab on the surface, but no discharge.2. Pt requests refill of zolpidem for insomnia. JIGNA Rush [address], [place], [address], [facility] [employer] [facility] 05/22/2023 16:02:51 06/12/2023 text/html 06/12/23: 1. Pt in office for 4 week f/u on left breast lump. Pt states pain/swelling and redness was getting better with the abx, but sx worsened again once the meds were done. Reports he isn't scheduled for imaging until 06/27/23. Pt concerned it may be MRSA d/t past infection. 05/22/23: 1. Pt in office for problem visit with c/o having lump in left breast. States it's been there for awhile (imaging results indicate problem is from 04/2022). Pt states it's now sore and is getting bigger. States there is a scab on the surface, but no discharge.2. Pt requests refill of zolpidem for insomnia. JIGNA Rush [address], [address], [place], [address], [facility] [employer] [facility] 06/12/2023 20:03:08 06/26/2023 text/html Diarrhea and weight loss: started taking doxycycline for lump in left breast. Set to have a mammogram 06/27/23; had a negative mammogram 06/2022 and lesion has stayed red on the nipple. Down 6 pounds since 05/22/23. Lowest weight was 200 pounds 06/21/23. Appetite has been good but was having diarrhea after every meal. Now having normal stools since he was told to stop taking doxycycline. Cold sores: has had worsening of cold sores since starting doxycycline. Has tried OTC abreva which helped but they are still present and inhibiting oral intake. Lump and cellulitis of left breast tissue: cellulitis much improved with prescription of doxycycline. Has a mammogram scheduled 06/27/23. Previous mammograms have all been negative. Cultures were negative for MSSA/MRSA. No longer having pain to the tissue and claims the redness/swelling has decreased significantly. JIGNA Rush [address], [facility], [place], [address], [facility] [employer] 06/26/2023 19:45:16 09/18/2023 text/html Pt is here for 1 month f/u JULIETA Humphreys [address], [facility], [place], [address], [facility] [employer] 09/18/2023 12:34:58
[2025-07-17 15:32] VITALS: BP 133/72; PULSE 78; RESP 14; TEMP 36.6; O2SAT 94
--- NOTE | 2025-07-17 15:44 | ED.FALL ---
HPI - Fall General Chief Complaint: Fall Stated Complaint: fall, right shoulder pain Time Seen by Provider: 07/17/25 15:32 Source: patient Mode of arrival: ambulatory Limitations: no limitations History of Present Illness HPI Narrative: This is a 75-year-old male that presents to the emergency department after a fall today with right shoulder pain. Reports he tripped and fell in his bathroom. Reports landing on his right side. Reports right shoulder pain, head injury. He did not lose consciousness. Denies vision changes, vomiting, numbness, weakness. Related Data Home Medications ?Medication ?Instructions ?Recorded ?Confirmed ?Last Taken ?Type aspirin 81 mg tablet,delayed 81 mg PO DAILY 07/17/20 07/07/25 05/25/25 History release ascorbate calcium (vitamin C) 500 500 mg PO DAILY 07/18/20 07/07/25 05/25/25 History mg tablet zinc acetate 25 mg (zinc) capsule 25 mg PO DAILY 07/18/20 07/07/25 05/25/25 History finasteride 5 mg tablet 5 mg PO .bedtime 05/05/24 07/07/25 05/29/25 History losartan 25 mg tablet 25 mg PO DAILY 05/05/24 07/07/25 05/29/25 History letrozole 2.5 mg tablet 2.5 mg PO DAILY 06/11/24 07/07/25 05/29/25 History temazepam 30 mg capsule 60 mg PO DAILY 06/11/24 07/07/25 05/29/25 History trazodone 150 mg tablet 300 mg PO DAILY 06/11/24 07/07/25 05/29/25 History omeprazole 20 mg tablet,delayed 20 mg PO DAILY 10/11/24 07/07/25 05/29/25 History release ribociclib 400 mg/day (200 mg x 2) 400 mg PO DAILY 10/11/24 07/07/25 05/29/25 History tablets tamsulosin 0.4 mg capsule 0.4 mg PO Q24H 10/11/24 07/07/25 05/29/25 History calcium 600 mg (as carbonate)-vit 1 tablet PO DAILY 03/08/25 07/07/25 05/25/25 History D3 10 mcg (400 unit) chewable tablet (Calcium 600 with Vitamin D3) mirtazapine 15 mg tablet 15 mg PO DAILY 03/08/25 07/07/25 05/29/25 History tadalafil 5 mg tablet (Cialis) 10 mg PO DAILY 04/28/25 07/07/25 05/29/25 History Allergies Allergy/AdvReac Type Severity Reaction Status Date / Time Sulfa (Sulfonamide Allergy Mild RASH Verified 07/17/25 15:37 Antibiotics) sertraline AdvReac Intermediate Diarrhea Verified 07/17/25 15:37 Review of Systems Review of Systems: All systems reviewed & are unremarkable except as noted in HPI and below PMFSH Past Medical History Medical History Cancer Seasonal allergies Urinary hesitancy Degenerative joint disease of knee Anxiety Depression Diarrhea Stomach pain Heart attack Bilateral knee pain Surgical History Surgical History H/O heart artery stent H/O vasectomy History of cholecystectomy History of heart surgery History of appendectomy Family History Family History Father Family history of gallbladder disease Family history of kidney disease Acute myocardial infarction Sibling Malignant neoplasm of prostate, Onset Age: 52 Family history of malignant neoplasm of breast in first degree relative Acute myocardial infarction Mother Family history of malignant neoplasm of breast in first degree relative, Onset Age: 78 Patient's mother is Other Heart disease Social History Social History (Updated 07/07/25 @ 11:00 by Gardenia Peng CMA) Second hand tobacco smoke exposure: No Alcohol intake: current Drinks per week: 14 Alcohol use details: two drinks a day Substance use: never Substance use type: does not use Lack of Transportation: No Lack of Food: Never True Current Housing: I Have Housing Concerned About Future Housing: No Difficulty Paying Gas/Electric Bills: No Difficulty Paying for Meds: No Currently Unemployed: No Education: Associate Degree Difficulty w/ Childcare or Family Care: No Living arrangements: with family Occupation/Education: retired Additional occupation/education comments: [employer] Gender identity (if verbalized by the patient): Male Spiritual care concerns: No Agree to blood products: Yes Exam Narrative: GENERAL: Well-appearing, well-nourished, and in no acute distress. HEAD: Normocephalic, atraumatic. EYES: PERRLA and EOMI. ENT: Nares clear, no rhinorrhea or epistaxis. Mucous membranes moist. Oropharynx without tonsillar hypertrophy exudate or other lesions. NECK: Supple. No adenopathy or masses. CHEST: Clear to auscultation. No respiratory distress. No wheezes rales or rhonchi HEART: Regular rate and rhythm. No murmur heard. Normal peripheral pulses. EXTREMITIES: Normal range of motion. No edema or obvious deformity. SKIN: Warm, dry, no rash. NEURO: No focal deficits. Alert and oriented x3. CN II-XII grossly intact PSYCH: Normal mood and affect Course Vital Signs Vital signs: Vital Signs Temperature 98 F 07/17/25 15:32 Pulse Rate 78 07/17/25 15:32 Respiratory Rate 14 07/17/25 15:32 Blood Pressure 133/72 07/17/25 15:32 Pulse Oximetry 94 07/17/25 15:32 Oxygen Delivery Room Air 07/17/25 15:32 Temperature 98 F 07/17/25 15:32 Pulse Rate 78 07/17/25 15:32 Respiratory Rate 14 07/17/25 15:32 Blood Pressure 133/72 07/17/25 15:32 Pulse Oximetry 94 07/17/25 15:32 Oxygen Delivery Room Air 07/17/25 15:32 MDM - Fall MDM Narrative Medical decision making narrative: Patient presents the emergency department after a fall today with head injury, right shoulder pain. Patient is neurologically intact at baseline. His vitals are stable. CT brain, cervical spine without acute findings. Right shoulder x-ray without acute osseous abnormalities. Patient placed in sling for comfort. Instructed to follow-up with orthopedics. He was given warnings to return to the ER Differential Diagnosis Differential diagnosis: Likely dislocation of shoulder region, compression fracture, concussion without loss of consciousness and other (Proximal humerus fracture, shoulder sprain, subdural hemorrhage, contusion) Imaging Data Radiologist's impression: ITS Impressions Shoulder X-Ray 07/17/25 16:09 Impression: No acute fracture or malalignment. Cervical Spine CT 07/17/25 16:12 Impression: No acute fracture identified Head CT 07/17/25 16:21 Impression: 1.No acute intracranial abnormality. Critical Care Time Critical Care Time Critical Care Time: No Discharge Plan Discharge Clinical Impression: Fall, Head injury, Acute pain of right shoulder Patient Disposition: Home Condition: Stable Instructions: Head Injury (ED), Shoulder Sprain (ED) Additional Instructions: Return to the emergency department if you experience fever, chest pain, shortness of breath, redness and swelling of your arm, weakness, numbness, or any other symptoms that are concerning to you. Rest. Ice to the area. Tylenol or Ibuprofen as needed for pain Follow up with your orthopedics doctor Patient Language: Japanese Prescriptions: No Action temazepam 30 mg capsule 60 mg PO DAILY trazodone 150 mg tablet 300 mg PO DAILY letrozole 2.5 mg tablet 2.5 mg PO DAILY Calcium 600 with Vitamin D3 600 mg-10 mcg (400 unit) tablet,chewable 1 tablet PO DAILY mirtazapine 15 mg tablet 15 mg PO DAILY Patient Comments: TAKES AT HS aspirin 81 mg tablet,delayed release (DR/EC) 81 mg PO DAILY ascorbate calcium (vitamin C) 500 mg tablet 500 mg PO DAILY zinc acetate 25 mg (zinc) capsule 25 mg PO DAILY Rx Instructions: swallow whole; do not chew/break/dissolve/open finasteride 5 mg tablet 5 mg PO .bedtime losartan 25 mg tablet 25 mg PO DAILY tamsulosin 0.4 mg capsule 0.4 mg PO Q24H omeprazole 20 mg tablet,delayed release (DR/EC) 20 mg PO DAILY ribociclib 400 mg/day (200 mg x 2) tablet 400 mg PO DAILY Rx Instructions: administer for 21 days; off 7 days per 28-day cycle carvedilol [Coreg] 3.125 mg tablet 3.125 mg PO BID Qty: 90 3RF Rx Instructions: must administer with a meal/food tadalafil [Cialis] 5 mg tablet 10 mg PO DAILY doxycycline hyclate 100 mg tablet 100 mg PO BID Qty: 20 0RF hydrocodone-acetaminophen 5-325 mg tablet 1 tablet PO Q4H PRN (Reason: pain) Qty: 30 0RF gabapentin 300 mg capsule See Rx Instructions .ROUTE .COMPLEX Qty: 180 1RF Dose Instruction: Take 1 capsule by mouth twice daily Rx Instructions: Take 1 capsule by mouth twice daily Follow-up/Referrals: Bang Hester MD [Primary Care Provider, Family Practice]
[2025-07-17 17:18] VITALS: BP 146/73; PULSE 69; RESP 18; TEMP 36.4; O2SAT 98
== END 2025-07-17 17:20 | disposition home or self-care (01) ==
PROVIDERS: Emergency Provider Physician Assistant; PCP Family Medicine
DX: M25.511 Pain in right shoulder (principal); S09.90XA Unspecified injury of head, initial encounter; W18.30XA Fall on same level, unspecified, initial encounter
CPT/HCPCS: 70450; 72125; 73030; 99284; A4565